=== PATIENT | male | born 1990 | race Caucasian/White ===

== ENCOUNTER → 2018-03-05 16:45 | Inpatient (IN) ==
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
[2017-09-24 09:54] LABS: Baso # (Auto) 0.1 th/mm3 (0.0-0.2); Baso % (Auto) 0.8 % (0.0-2.0); Eos # (Auto) 0.4 th/mm3 (0.0-0.4); Eos % (Auto) 5.4 % (0.0-4.0); Hemoglobin 13.9 gm/dL (13.0-17.0); Lymph # (Auto) 1.4 th/mm3 (1.0-4.8); Lymph % (Auto) 20.1 % (9.0-44.0); Mean Corpuscular HGB Conc 33.9 % (32.0-36.0); Mean Corpuscular Hemoglobin 28.8 pg (27.0-34.0); Mean Platelet Volume 9.6 fL (7.0-11.0); Mono # (Auto) 0.5 th/mm3 (0.0-0.9); Mono % (Auto) 6.9 % (0.0-8.0); Neut # (Auto) 4.6 th/mm3 (1.8-7.7); Neut % (Auto) 66.8 % (16.0-70.0); Platelet Count 232 th/mm3 (150-450); Red Blood Count 4.82 mil/mm3 (4.50-5.90); Red Cell Distribution Width 14.2 % (11.6-17.2)
[2017-09-24] MEDS: Enoxaparin Inj 40 MG/0.4 ML Syringe SQ SCH (10:17)
[2017-09-24] MEDS: Ascorbic Acid 500 MG Tablet NG/OG SCH (10:18)
[2017-09-24] MEDS: Chlorhexidine Gluconate 0.12% Liq 15 ML UDC SWISH-SPIT SCH ×2 (10:18→20:14)
[2017-09-24] MEDS: Multivitamin/Minerals Therapeutic Tablet NG/OG SCH ×2 (10:19→20:14)
[2017-09-24] MEDS: Methocarbamol 500 MG Tablet NG/OG SCH ×3 (10:19→17:50)
[2017-09-24] MEDS: Beneprotein Powder Packet NG/OG SCH ×3 (10:20→21:43)
[2017-09-24 12:29] LABS: Anion Gap 9 meq/L (5-15); Blood Urea Nitrogen 23 mg/dL (7-18); Calcium 8.8 mg/dL (8.5-10.1); Chloride 105 meq/L (98-107); Glomerular Filtration Rate Greater Than 89 mL/min (>89); Glucose,Random 114 mg/dL (74-106); Potassium 3.9 meq/L (3.5-5.1); Sodium 140 meq/L (136-145)
[2017-09-25] MEDS: Chlorhexidine Gluconate 0.12% Liq 15 ML UDC SWISH-SPIT SCH ×2 (08:01→20:44)
[2017-09-25] MEDS: Multivitamin/Minerals Therapeutic Tablet NG/OG SCH ×2 (08:01→20:46)
[2017-09-25] MEDS: Ascorbic Acid 500 MG Tablet NG/OG SCH (08:01)
[2017-09-25] MEDS: Methocarbamol 500 MG Tablet NG/OG SCH ×3 (08:01→17:25)
[2017-09-25] MEDS: Beneprotein Powder Packet NG/OG SCH ×3 (08:02→17:24)
[2017-09-25] MEDS: Enoxaparin Inj 40 MG/0.4 ML Syringe SQ SCH (08:02)
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
[2017-09-26] MEDS: Ascorbic Acid 500 MG Tablet NG/OG SCH (08:21)
[2017-09-26] MEDS: Beneprotein Powder Packet NG/OG SCH ×3 (08:21→17:07)
[2017-09-26] MEDS: Methocarbamol 500 MG Tablet NG/OG SCH ×3 (08:21→17:06)
[2017-09-26] MEDS: Multivitamin/Minerals Therapeutic Tablet NG/OG SCH ×2 (08:21→20:32)
[2017-09-26] MEDS: Enoxaparin Inj 40 MG/0.4 ML Syringe SQ SCH (08:23)
[2017-09-26] MEDS: Chlorhexidine Gluconate 0.12% Liq 15 ML UDC SWISH-SPIT SCH ×2 (08:24→20:33)
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
[2017-09-26] MEDS: Artificial Tears Opth Drops 15 ML Bottle EACH EYE PRN (20:31)
[2017-09-27] MEDS: Enoxaparin Inj 40 MG/0.4 ML Syringe SQ SCH (09:45)
[2017-09-27] MEDS: Ascorbic Acid 500 MG Tablet NG/OG SCH (09:45)
[2017-09-27] MEDS: Methocarbamol 500 MG Tablet NG/OG SCH ×3 (09:45→17:48)
[2017-09-27] MEDS: Multivitamin/Minerals Therapeutic Tablet NG/OG SCH ×2 (09:45→21:20)
[2017-09-27] MEDS: Chlorhexidine Gluconate 0.12% Liq 15 ML UDC SWISH-SPIT SCH ×2 (09:45→21:30)
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
[2017-09-27] MEDS: Beneprotein Powder Packet NG/OG SCH ×3 (13:36→17:48)
[2017-09-28] MEDS: Multivitamin/Minerals Therapeutic Tablet NG/OG SCH ×2 (08:23→20:45)
[2017-09-28] MEDS: Ascorbic Acid 500 MG Tablet NG/OG SCH (08:23)
[2017-09-28] MEDS: Methocarbamol 500 MG Tablet NG/OG SCH ×3 (08:23→18:12)
[2017-09-28] MEDS: Chlorhexidine Gluconate 0.12% Liq 15 ML UDC SWISH-SPIT SCH ×2 (08:23→20:44)
[2017-09-28] MEDS: Enoxaparin Inj 40 MG/0.4 ML Syringe SQ SCH (08:23)
[2017-09-28] MEDS: Beneprotein Powder Packet NG/OG SCH ×3 (08:24→18:12)
--- NOTE | 2017-09-28 13:54 | P.PNPAL ---
Palliative care received a call from patient's step-mother requesting a letter speaking to patient's medical condition. Letter provided and copy placed in chart. Stepmother reports she will be by the hospital Monday. Palliative care will continue to follow throughout hospitalization.
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
[2017-09-28] MEDS: Lactic Acid (Ammonium Lactate) 12% Lotion 225 GM Bottle TOPICAL PRN (20:47)
[2017-09-29] MEDS: Multivitamin/Minerals Therapeutic Tablet NG/OG SCH ×2 (09:57→20:24)
[2017-09-29] MEDS: Ascorbic Acid 500 MG Tablet NG/OG SCH (09:57)
[2017-09-29] MEDS: Chlorhexidine Gluconate 0.12% Liq 15 ML UDC SWISH-SPIT SCH ×2 (09:57→20:23)
[2017-09-29] MEDS: Methocarbamol 500 MG Tablet NG/OG SCH ×3 (09:58→20:25)
[2017-09-29] MEDS: Beneprotein Powder Packet NG/OG SCH ×3 (09:58→20:25)
[2017-09-29] MEDS: Enoxaparin Inj 40 MG/0.4 ML Syringe SQ SCH (09:58)
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
[2017-09-29 20:04] LABS: Baso # (Auto) 0.1 th/mm3 (0.0-0.2); Eos # (Auto) 0.4 th/mm3 (0.0-0.4); Eos % (Auto) 4.9 % (0.0-4.0); Hematocrit 42.9 % (39.0-51.0); Hemoglobin 14.4 gm/dL (13.0-17.0); Lymph # (Auto) 1.9 th/mm3 (1.0-4.8); Lymph % (Auto) 23.9 % (9.0-44.0); Mean Corpuscular HGB Conc 33.4 % (32.0-36.0); Mean Corpuscular Hemoglobin 28.6 pg (27.0-34.0); Mean Corpuscular Volume 85.5 fL (80.0-100.0); Mean Platelet Volume 9.6 fL (7.0-11.0); Mono # (Auto) 0.7 th/mm3 (0.0-0.9); Mono % (Auto) 9.3 % (0.0-8.0); Neut # (Auto) 4.8 th/mm3 (1.8-7.7); Neut % (Auto) 60.9 % (16.0-70.0); Platelet Count 231 th/mm3 (150-450); Red Blood Count 5.02 mil/mm3 (4.50-5.90); Red Cell Distribution Width 14.1 % (11.6-17.2); White Blood Count 7.8 th/mm3 (4.0-11.0)
[2017-09-29 20:20] LABS: Anion Gap 9 meq/L (5-15); Blood Urea Nitrogen 23 mg/dL (7-18); Calcium 9.2 mg/dL (8.5-10.1); Carbon Dioxide 28.3 meq/L (21.0-32.0); Chloride 103 meq/L (98-107); Glomerular Filtration Rate Greater Than 89 mL/min (>89); Glucose,Random 90 mg/dL (74-106); Phosphorus 3.7 mg/dL (2.5-4.9); Potassium 4.2 meq/L (3.5-5.1); Sodium 140 meq/L (136-145)
[2017-09-29] MEDS: Metoprolol Tartrate 25 MG Tablet G-TUBE SCH (20:23)
[2017-09-30] MEDS: Metoprolol Tartrate 25 MG Tablet G-TUBE SCH ×2 (09:00→20:57)
[2017-09-30] MEDS: Beneprotein Powder Packet NG/OG SCH ×3 (09:00→18:00)
[2017-09-30] MEDS: Chlorhexidine Gluconate 0.12% Liq 15 ML UDC SWISH-SPIT SCH ×2 (09:00→20:57)
[2017-09-30] MEDS: Enoxaparin Inj 40 MG/0.4 ML Syringe SQ SCH (09:00)
[2017-09-30] MEDS: Methocarbamol 500 MG Tablet NG/OG SCH ×3 (09:00→18:00)
[2017-09-30] MEDS: Ascorbic Acid 500 MG Tablet NG/OG SCH (09:00)
[2017-09-30] MEDS: Multivitamin/Minerals Therapeutic Tablet NG/OG SCH ×2 (09:00→20:57)
[2017-09-30] MEDS: Lactic Acid (Ammonium Lactate) 12% Lotion 225 GM Bottle TOPICAL PRN (10:19)
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
[2017-10-01] MEDS: Methocarbamol 500 MG Tablet NG/OG SCH ×3 (09:00→18:08)
[2017-10-01] MEDS: Enoxaparin Inj 40 MG/0.4 ML Syringe SQ SCH (09:00)
[2017-10-01] MEDS: Ascorbic Acid 500 MG Tablet NG/OG SCH (09:00)
[2017-10-01] MEDS: Chlorhexidine Gluconate 0.12% Liq 15 ML UDC SWISH-SPIT SCH ×2 (09:00→20:39)
[2017-10-01] MEDS: Metoprolol Tartrate 25 MG Tablet G-TUBE SCH ×2 (09:00→20:39)
[2017-10-01] MEDS: Beneprotein Powder Packet NG/OG SCH ×3 (09:00→18:08)
[2017-10-01] MEDS: Multivitamin/Minerals Therapeutic Tablet NG/OG SCH ×2 (09:00→20:39)
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
[2017-10-02] MEDS: Chlorhexidine Gluconate 0.12% Liq 15 ML UDC SWISH-SPIT SCH ×2 (08:11→22:27)
[2017-10-02] MEDS: Metoprolol Tartrate 25 MG Tablet G-TUBE SCH ×2 (08:11→22:28)
[2017-10-02] MEDS: Beneprotein Powder Packet NG/OG SCH ×3 (08:11→17:44)
[2017-10-02] MEDS: Multivitamin/Minerals Therapeutic Tablet NG/OG SCH ×2 (08:11→22:30)
[2017-10-02] MEDS: Methocarbamol 500 MG Tablet NG/OG SCH ×3 (08:12→17:45)
[2017-10-02] MEDS: Enoxaparin Inj 40 MG/0.4 ML Syringe SQ SCH (08:12)
[2017-10-02] MEDS: Ascorbic Acid 500 MG Tablet NG/OG SCH (08:12)
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
[2017-10-03] MEDS: Beneprotein Powder Packet NG/OG SCH ×3 (09:21→17:05)
[2017-10-03] MEDS: Multivitamin/Minerals Therapeutic Tablet NG/OG SCH ×2 (09:22→21:00)
[2017-10-03] MEDS: Enoxaparin Inj 40 MG/0.4 ML Syringe SQ SCH (09:22)
[2017-10-03] MEDS: Metoprolol Tartrate 25 MG Tablet G-TUBE SCH ×2 (09:22→21:00)
[2017-10-03] MEDS: Chlorhexidine Gluconate 0.12% Liq 15 ML UDC SWISH-SPIT SCH ×2 (09:28→21:00)
[2017-10-03] MEDS: Ascorbic Acid 500 MG Tablet NG/OG SCH (09:28)
[2017-10-03] MEDS: Methocarbamol 500 MG Tablet NG/OG SCH ×3 (09:28→17:05)
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
[2017-10-04] MEDS: Chlorhexidine Gluconate 0.12% Liq 15 ML UDC SWISH-SPIT SCH ×2 (08:55→20:55)
[2017-10-04] MEDS: Metoprolol Tartrate 25 MG Tablet G-TUBE SCH ×2 (08:56→20:24)
[2017-10-04] MEDS: Multivitamin/Minerals Therapeutic Tablet NG/OG SCH ×2 (08:56→20:24)
[2017-10-04] MEDS: Methocarbamol 500 MG Tablet NG/OG SCH ×3 (08:56→17:08)
[2017-10-04] MEDS: Enoxaparin Inj 40 MG/0.4 ML Syringe SQ SCH (08:57)
[2017-10-04] MEDS: Ascorbic Acid 500 MG Tablet NG/OG SCH (08:57)
[2017-10-04] MEDS: Beneprotein Powder Packet NG/OG SCH ×3 (08:57→17:07)
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
[2017-10-05] MEDS: Multivitamin/Minerals Therapeutic Tablet NG/OG SCH ×2 (08:26→21:00)
[2017-10-05] MEDS: Enoxaparin Inj 40 MG/0.4 ML Syringe SQ SCH (08:27)
[2017-10-05] MEDS: Chlorhexidine Gluconate 0.12% Liq 15 ML UDC SWISH-SPIT SCH ×2 (08:27→21:00)
[2017-10-05] MEDS: Ascorbic Acid 500 MG Tablet NG/OG SCH (08:27)
[2017-10-05] MEDS: Metoprolol Tartrate 25 MG Tablet G-TUBE SCH ×2 (08:27→21:00)
[2017-10-05] MEDS: Methocarbamol 500 MG Tablet NG/OG SCH ×3 (08:28→17:42)
[2017-10-05] MEDS: Beneprotein Powder Packet NG/OG SCH ×3 (08:28→17:42)
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
[2017-10-06] MEDS: Ascorbic Acid 500 MG Tablet NG/OG SCH (09:45)
[2017-10-06] MEDS: Multivitamin/Minerals Therapeutic Tablet NG/OG SCH ×2 (09:45→21:26)
[2017-10-06] MEDS: Enoxaparin Inj 40 MG/0.4 ML Syringe SQ SCH (09:46)
[2017-10-06] MEDS: Chlorhexidine Gluconate 0.12% Liq 15 ML UDC SWISH-SPIT SCH ×2 (09:46→21:26)
[2017-10-06] MEDS: Methocarbamol 500 MG Tablet NG/OG SCH ×3 (09:46→17:35)
[2017-10-06] MEDS: Metoprolol Tartrate 25 MG Tablet G-TUBE SCH ×2 (09:46→21:26)
[2017-10-06] MEDS: Beneprotein Powder Packet NG/OG SCH ×3 (09:47→17:35)
[2017-10-07] MEDS: Metoprolol Tartrate 25 MG Tablet G-TUBE SCH ×2 (08:56→21:07)
[2017-10-07] MEDS: Multivitamin/Minerals Therapeutic Tablet NG/OG SCH ×2 (09:01→21:07)
[2017-10-07] MEDS: Chlorhexidine Gluconate 0.12% Liq 15 ML UDC SWISH-SPIT SCH ×2 (09:01→21:07)
[2017-10-07] MEDS: Methocarbamol 500 MG Tablet NG/OG SCH ×3 (09:01→18:32)
[2017-10-07] MEDS: Ascorbic Acid 500 MG Tablet NG/OG SCH (09:01)
[2017-10-07] MEDS: Enoxaparin Inj 40 MG/0.4 ML Syringe SQ SCH (09:02)
[2017-10-07] MEDS: Beneprotein Powder Packet NG/OG SCH ×3 (09:02→18:32)
[2017-10-07] MEDS: Lactic Acid (Ammonium Lactate) 12% Lotion 225 GM Bottle TOPICAL PRN (09:03)
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
[2017-10-07] MEDS: Artificial Tears Opth Drops 15 ML Bottle EACH EYE PRN (12:44)
[2017-10-07 13:09] LABS: Baso % (Auto) 0.6 % (0.0-2.0); Eos # (Auto) 0.3 th/mm3 (0.0-0.4); Hematocrit 45.2 % (39.0-51.0); Hemoglobin 15.1 gm/dL (13.0-17.0); Lymph # (Auto) 1.9 th/mm3 (1.0-4.8); Lymph % (Auto) 27.6 % (9.0-44.0); Mean Corpuscular HGB Conc 33.5 % (32.0-36.0); Mean Corpuscular Hemoglobin 28.9 pg (27.0-34.0); Mean Corpuscular Volume 86.3 fL (80.0-100.0); Mean Platelet Volume 9.1 fL (7.0-11.0); Mono # (Auto) 0.5 th/mm3 (0.0-0.9); Mono % (Auto) 7.8 % (0.0-8.0); Neut # (Auto) 4.2 th/mm3 (1.8-7.7); Platelet Count 238 th/mm3 (150-450); Red Blood Count 5.24 mil/mm3 (4.50-5.90); Red Cell Distribution Width 14.2 % (11.6-17.2)
[2017-10-07 13:26] LABS: Anion Gap 8 meq/L (5-15); Blood Urea Nitrogen 19 mg/dL (7-18); Calcium 9.4 mg/dL (8.5-10.1); Carbon Dioxide 27.5 meq/L (21.0-32.0); Chloride 105 meq/L (98-107); Glomerular Filtration Rate Greater Than 89 mL/min (>89); Glucose,Random 89 mg/dL (74-106); Potassium 4.8 meq/L (3.5-5.1); Sodium 140 meq/L (136-145)
[2017-10-07 17:43] LABS: Amorphous Sediment,Urine Moderate /hpf; Bilirubin,Urine Negative (Negative); Clarity,Urine Cloudy (Clear); Color,Urine Yellow (Yellw/Straw); Glucose,Urine (UA) Negative (Negative); Leukocyte Esterase,Urine Negative (Negative); Nitrite,Urine Negative (Negative); Specific Gravity,Urine 1.012 (1.002-1.035)
[2017-10-08] MEDS: Methocarbamol 500 MG Tablet NG/OG SCH ×3 (09:00→18:07)
[2017-10-08] MEDS: Chlorhexidine Gluconate 0.12% Liq 15 ML UDC SWISH-SPIT SCH ×2 (09:19→20:50)
[2017-10-08] MEDS: Ascorbic Acid 500 MG Tablet NG/OG SCH (09:20)
[2017-10-08] MEDS: Multivitamin/Minerals Therapeutic Tablet NG/OG SCH ×2 (09:20→20:51)
[2017-10-08] MEDS: Beneprotein Powder Packet NG/OG SCH ×3 (09:20→18:07)
[2017-10-08] MEDS: Enoxaparin Inj 40 MG/0.4 ML Syringe SQ SCH (09:21)
[2017-10-08] MEDS: Metoprolol Tartrate 25 MG Tablet G-TUBE SCH ×2 (09:21→20:51)
[2017-10-08] MEDS: Lactic Acid (Ammonium Lactate) 12% Lotion 225 GM Bottle TOPICAL PRN (09:21)
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
[2017-10-09] MEDS: Multivitamin/Minerals Therapeutic Tablet NG/OG SCH ×2 (09:55→21:05)
[2017-10-09] MEDS: Methocarbamol 500 MG Tablet NG/OG SCH ×3 (09:55→21:05)
[2017-10-09] MEDS: Ascorbic Acid 500 MG Tablet NG/OG SCH (09:56)
[2017-10-09] MEDS: Enoxaparin Inj 40 MG/0.4 ML Syringe SQ SCH (09:56)
[2017-10-09] MEDS: Metoprolol Tartrate 25 MG Tablet G-TUBE SCH ×2 (09:56→21:04)
[2017-10-09] MEDS: Beneprotein Powder Packet NG/OG SCH ×3 (14:58→19:07)
[2017-10-09] MEDS: Chlorhexidine Gluconate 0.12% Liq 15 ML UDC SWISH-SPIT SCH ×2 (14:58→21:05)
[2017-10-10] MEDS: Metoprolol Tartrate 25 MG Tablet G-TUBE SCH ×2 (08:06→21:17)
[2017-10-10] MEDS: Methocarbamol 500 MG Tablet NG/OG SCH ×2 (08:06→13:24)
[2017-10-10] MEDS: Ascorbic Acid 500 MG Tablet NG/OG SCH (08:06)
[2017-10-10] MEDS: Multivitamin/Minerals Therapeutic Tablet NG/OG SCH ×2 (08:06→21:17)
[2017-10-10] MEDS: Beneprotein Powder Packet NG/OG SCH ×2 (08:20→13:24)
[2017-10-10] MEDS: Enoxaparin Inj 40 MG/0.4 ML Syringe SQ SCH (08:20)
[2017-10-10] MEDS: Chlorhexidine Gluconate 0.12% Liq 15 ML UDC SWISH-SPIT SCH ×2 (08:21→21:17)
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
[2017-10-11] MEDS: Enoxaparin Inj 40 MG/0.4 ML Syringe SQ SCH (09:04)
[2017-10-11] MEDS: Ascorbic Acid 500 MG Tablet NG/OG SCH (09:04)
[2017-10-11] MEDS: Multivitamin/Minerals Therapeutic Tablet NG/OG SCH ×2 (09:04→23:03)
[2017-10-11] MEDS: Methocarbamol 500 MG Tablet NG/OG SCH ×4 (09:04→17:17)
[2017-10-11] MEDS: Chlorhexidine Gluconate 0.12% Liq 15 ML UDC SWISH-SPIT SCH ×2 (09:05→23:04)
[2017-10-11] MEDS: Beneprotein Powder Packet NG/OG SCH ×4 (09:05→17:17)
[2017-10-11] MEDS: Metoprolol Tartrate 25 MG Tablet G-TUBE SCH ×2 (09:07→20:35)
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
[2017-10-11] MEDS: BACITRACIN RIGHT EYE SCH (23:58)
[2017-10-11] MEDS: [UNRECOGNIZED DRUG - OTHER] RIGHT EYE SCH (23:58)
[2017-10-12] MEDS: [UNRECOGNIZED DRUG - OTHER] RIGHT EYE SCH ×5 (04:04→20:49)
[2017-10-12] MEDS: BACITRACIN RIGHT EYE SCH ×5 (04:04→20:49)
[2017-10-12] MEDS: Chlorhexidine Gluconate 0.12% Liq 15 ML UDC SWISH-SPIT SCH ×2 (08:46→20:52)
[2017-10-12] MEDS: Enoxaparin Inj 40 MG/0.4 ML Syringe SQ SCH (08:46)
[2017-10-12] MEDS: Multivitamin/Minerals Therapeutic Tablet NG/OG SCH ×2 (08:46→20:53)
[2017-10-12] MEDS: Ascorbic Acid 500 MG Tablet NG/OG SCH (08:47)
[2017-10-12] MEDS: Metoprolol Tartrate 25 MG Tablet G-TUBE SCH ×2 (08:47→20:52)
[2017-10-12] MEDS: Beneprotein Powder Packet NG/OG SCH ×3 (08:47→18:00)
[2017-10-12] MEDS: Methocarbamol 500 MG Tablet NG/OG SCH ×2 (08:48→14:19)
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
[2017-10-13] MEDS: [UNRECOGNIZED DRUG - OTHER] RIGHT EYE SCH ×6 (00:37→20:59)
[2017-10-13] MEDS: BACITRACIN RIGHT EYE SCH ×6 (00:37→20:59)
[2017-10-13] MEDS: Chlorhexidine Gluconate 0.12% Liq 15 ML UDC SWISH-SPIT SCH ×2 (09:36→20:59)
[2017-10-13] MEDS: Ascorbic Acid 500 MG Tablet NG/OG SCH (09:36)
[2017-10-13] MEDS: Beneprotein Powder Packet NG/OG SCH ×3 (09:36→17:31)
[2017-10-13] MEDS: Enoxaparin Inj 40 MG/0.4 ML Syringe SQ SCH (09:36)
[2017-10-13] MEDS: Multivitamin/Minerals Therapeutic Tablet NG/OG SCH ×2 (09:36→20:58)
[2017-10-13] MEDS: Metoprolol Tartrate 25 MG Tablet G-TUBE SCH ×2 (09:36→20:58)
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
[2017-10-14] MEDS: BACITRACIN RIGHT EYE SCH ×7 (01:12→23:59)
[2017-10-14] MEDS: [UNRECOGNIZED DRUG - OTHER] RIGHT EYE SCH ×7 (01:12→23:59)
[2017-10-14] MEDS: Multivitamin/Minerals Therapeutic Tablet NG/OG SCH ×2 (09:32→21:09)
[2017-10-14] MEDS: Beneprotein Powder Packet NG/OG SCH ×3 (09:32→18:33)
[2017-10-14] MEDS: Ascorbic Acid 500 MG Tablet NG/OG SCH (09:32)
[2017-10-14] MEDS: Enoxaparin Inj 40 MG/0.4 ML Syringe SQ SCH (09:33)
[2017-10-14] MEDS: Chlorhexidine Gluconate 0.12% Liq 15 ML UDC SWISH-SPIT SCH ×2 (09:33→21:09)
[2017-10-14] MEDS: Metoprolol Tartrate 25 MG Tablet G-TUBE SCH ×2 (09:33→21:09)
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
[2017-10-15] MEDS: [UNRECOGNIZED DRUG - OTHER] RIGHT EYE SCH ×5 (05:11→19:28)
[2017-10-15] MEDS: BACITRACIN RIGHT EYE SCH ×5 (05:11→19:28)
[2017-10-15] MEDS: Ascorbic Acid 500 MG Tablet NG/OG SCH (08:59)
[2017-10-15] MEDS: Enoxaparin Inj 40 MG/0.4 ML Syringe SQ SCH (08:59)
[2017-10-15] MEDS: Multivitamin/Minerals Therapeutic Tablet NG/OG SCH ×2 (08:59→20:13)
[2017-10-15] MEDS: Chlorhexidine Gluconate 0.12% Liq 15 ML UDC SWISH-SPIT SCH ×2 (08:59→20:12)
[2017-10-15] MEDS: Metoprolol Tartrate 25 MG Tablet G-TUBE SCH ×2 (08:59→20:12)
[2017-10-15] MEDS: Beneprotein Powder Packet NG/OG SCH ×3 (09:00→18:00)
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
[2017-10-16] MEDS: BACITRACIN RIGHT EYE SCH ×6 (00:35→20:06)
[2017-10-16] MEDS: [UNRECOGNIZED DRUG - OTHER] RIGHT EYE SCH ×6 (00:35→20:06)
[2017-10-16] MEDS: Enoxaparin Inj 40 MG/0.4 ML Syringe SQ SCH (08:29)
[2017-10-16] MEDS: Chlorhexidine Gluconate 0.12% Liq 15 ML UDC SWISH-SPIT SCH ×2 (08:30→20:06)
[2017-10-16] MEDS: Multivitamin/Minerals Therapeutic Tablet NG/OG SCH ×2 (08:30→20:10)
[2017-10-16] MEDS: Metoprolol Tartrate 25 MG Tablet G-TUBE SCH ×2 (08:30→20:11)
[2017-10-16] MEDS: Ascorbic Acid 500 MG Tablet NG/OG SCH (08:30)
[2017-10-16] MEDS: Beneprotein Powder Packet NG/OG SCH ×3 (08:31→17:24)
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
[2017-10-17] MEDS: [UNRECOGNIZED DRUG - OTHER] RIGHT EYE SCH ×7 (00:05→23:50)
[2017-10-17] MEDS: BACITRACIN RIGHT EYE SCH ×7 (00:05→23:50)
[2017-10-17] MEDS: Ascorbic Acid 500 MG Tablet NG/OG SCH (08:42)
[2017-10-17] MEDS: Enoxaparin Inj 40 MG/0.4 ML Syringe SQ SCH (08:42)
[2017-10-17] MEDS: Metoprolol Tartrate 25 MG Tablet G-TUBE SCH ×3 (08:43→20:13)
[2017-10-17] MEDS: Multivitamin/Minerals Therapeutic Tablet NG/OG SCH ×2 (08:43→20:04)
[2017-10-17] MEDS: Chlorhexidine Gluconate 0.12% Liq 15 ML UDC SWISH-SPIT SCH ×2 (08:43→20:12)
[2017-10-17] MEDS: Beneprotein Powder Packet NG/OG SCH ×3 (08:43→17:38)
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
[2017-10-18] MEDS: [UNRECOGNIZED DRUG - OTHER] RIGHT EYE SCH ×6 (05:10→23:47)
[2017-10-18] MEDS: BACITRACIN RIGHT EYE SCH ×6 (05:10→23:47)
[2017-10-18] MEDS: Ascorbic Acid 500 MG Tablet NG/OG SCH (08:07)
[2017-10-18] MEDS: Metoprolol Tartrate 25 MG Tablet G-TUBE SCH ×2 (08:08→20:17)
[2017-10-18] MEDS: Enoxaparin Inj 40 MG/0.4 ML Syringe SQ SCH (08:08)
[2017-10-18] MEDS: Chlorhexidine Gluconate 0.12% Liq 15 ML UDC SWISH-SPIT SCH ×2 (09:00→20:19)
[2017-10-18] MEDS: Multivitamin/Minerals Therapeutic Tablet NG/OG SCH ×2 (09:00→20:17)
[2017-10-18] MEDS: Beneprotein Powder Packet NG/OG SCH ×3 (09:00→18:00)
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
[2017-10-19] MEDS: Ascorbic Acid 500 MG Tablet NG/OG SCH (08:19)
[2017-10-19] MEDS: Metoprolol Tartrate 25 MG Tablet G-TUBE SCH ×2 (08:19→20:10)
[2017-10-19] MEDS: Enoxaparin Inj 40 MG/0.4 ML Syringe SQ SCH (08:19)
[2017-10-19] MEDS: Chlorhexidine Gluconate 0.12% Liq 15 ML UDC SWISH-SPIT SCH ×2 (08:21→20:13)
[2017-10-19] MEDS: Multivitamin/Minerals Therapeutic Tablet NG/OG SCH ×2 (08:21→20:10)
[2017-10-19] MEDS: Beneprotein Powder Packet NG/OG SCH ×3 (08:21→17:32)
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
[2017-10-19] MEDS: diazePAM 2 MG Tablet NG/OG PRN (20:09)
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
[2017-10-20] MEDS: Ascorbic Acid 500 MG Tablet NG/OG SCH (09:00)
[2017-10-20] MEDS: Enoxaparin Inj 40 MG/0.4 ML Syringe SQ SCH (09:00)
[2017-10-20] MEDS: Beneprotein Powder Packet NG/OG SCH ×3 (09:00→18:14)
[2017-10-20] MEDS: Multivitamin/Minerals Therapeutic Tablet NG/OG SCH ×2 (09:00→23:04)
[2017-10-20] MEDS: Metoprolol Tartrate 25 MG Tablet G-TUBE SCH ×2 (09:31→21:25)
[2017-10-20] MEDS: Chlorhexidine Gluconate 0.12% Liq 15 ML UDC SWISH-SPIT SCH ×2 (09:31→21:24)
[2017-10-20] MEDS: diazePAM 2 MG Tablet NG/OG PRN (21:25)
[2017-10-21] MEDS: Multivitamin/Minerals Therapeutic Tablet NG/OG SCH ×2 (08:47→22:43)
[2017-10-21] MEDS: Metoprolol Tartrate 25 MG Tablet G-TUBE SCH ×2 (08:47→22:43)
[2017-10-21] MEDS: Chlorhexidine Gluconate 0.12% Liq 15 ML UDC SWISH-SPIT SCH ×2 (08:48→22:43)
[2017-10-21] MEDS: Ascorbic Acid 500 MG Tablet NG/OG SCH (08:48)
[2017-10-21] MEDS: Beneprotein Powder Packet NG/OG SCH ×3 (08:48→17:55)
[2017-10-21] MEDS: Enoxaparin Inj 40 MG/0.4 ML Syringe SQ SCH (08:49)
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
[2017-10-22] MEDS: Senna/Docusate Sodium 8.6/50 MG Tablet NG/OG PRN (06:28)
[2017-10-22] MEDS: Multivitamin/Minerals Therapeutic Tablet NG/OG SCH ×2 (08:42→21:54)
[2017-10-22] MEDS: Enoxaparin Inj 40 MG/0.4 ML Syringe SQ SCH (08:43)
[2017-10-22] MEDS: Ascorbic Acid 500 MG Tablet NG/OG SCH (08:43)
[2017-10-22] MEDS: Metoprolol Tartrate 25 MG Tablet G-TUBE SCH ×2 (08:43→21:53)
[2017-10-22] MEDS: Chlorhexidine Gluconate 0.12% Liq 15 ML UDC SWISH-SPIT SCH ×2 (08:43→21:55)
[2017-10-22] MEDS: Beneprotein Powder Packet NG/OG SCH ×3 (08:44→17:29)
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
[2017-10-23] MEDS: Ascorbic Acid 500 MG Tablet NG/OG SCH (09:54)
[2017-10-23] MEDS: Chlorhexidine Gluconate 0.12% Liq 15 ML UDC SWISH-SPIT SCH ×2 (09:55→21:51)
[2017-10-23] MEDS: Enoxaparin Inj 40 MG/0.4 ML Syringe SQ SCH (09:55)
[2017-10-23] MEDS: Multivitamin/Minerals Therapeutic Tablet NG/OG SCH ×2 (09:55→21:51)
[2017-10-23] MEDS: Metoprolol Tartrate 25 MG Tablet G-TUBE SCH ×2 (09:55→21:51)
[2017-10-23] MEDS: Beneprotein Powder Packet NG/OG SCH ×3 (09:56→17:50)
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
[2017-10-24] MEDS: Multivitamin/Minerals Therapeutic Tablet NG/OG SCH ×2 (09:38→21:06)
[2017-10-24] MEDS: Ascorbic Acid 500 MG Tablet NG/OG SCH (09:38)
[2017-10-24] MEDS: Chlorhexidine Gluconate 0.12% Liq 15 ML UDC SWISH-SPIT SCH ×2 (09:38→21:05)
[2017-10-24] MEDS: Metoprolol Tartrate 25 MG Tablet G-TUBE SCH ×2 (09:38→21:06)
[2017-10-24] MEDS: Enoxaparin Inj 40 MG/0.4 ML Syringe SQ SCH (09:39)
[2017-10-24] MEDS: Beneprotein Powder Packet NG/OG SCH ×3 (09:39→17:37)
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
[2017-10-25] MEDS: Enoxaparin Inj 40 MG/0.4 ML Syringe SQ SCH (08:26)
[2017-10-25] MEDS: Metoprolol Tartrate 25 MG Tablet G-TUBE SCH ×2 (08:26→21:12)
[2017-10-25] MEDS: Chlorhexidine Gluconate 0.12% Liq 15 ML UDC SWISH-SPIT SCH ×2 (08:26→21:11)
[2017-10-25] MEDS: Multivitamin/Minerals Therapeutic Tablet NG/OG SCH ×2 (08:27→21:12)
[2017-10-25] MEDS: Ascorbic Acid 500 MG Tablet NG/OG SCH (08:27)
[2017-10-25] MEDS: Beneprotein Powder Packet NG/OG SCH ×3 (08:27→17:33)
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
[2017-10-26] MEDS: Beneprotein Powder Packet NG/OG SCH ×3 (08:57→18:00)
[2017-10-26] MEDS: Metoprolol Tartrate 25 MG Tablet G-TUBE SCH ×2 (08:58→20:53)
[2017-10-26] MEDS: Multivitamin/Minerals Therapeutic Tablet NG/OG SCH ×2 (08:58→20:53)
[2017-10-26] MEDS: Enoxaparin Inj 40 MG/0.4 ML Syringe SQ SCH (08:58)
[2017-10-26] MEDS: Chlorhexidine Gluconate 0.12% Liq 15 ML UDC SWISH-SPIT SCH ×2 (08:58→20:53)
[2017-10-26] MEDS: Ascorbic Acid 500 MG Tablet NG/OG SCH (08:58)
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
[2017-10-26] MEDS: Senna/Docusate Sodium 8.6/50 MG Tablet NG/OG PRN (21:05)
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
[2017-10-27] MEDS: Beneprotein Powder Packet NG/OG SCH ×3 (09:00→17:49)
[2017-10-27] MEDS: Ascorbic Acid 500 MG Tablet NG/OG SCH (09:34)
[2017-10-27] MEDS: Chlorhexidine Gluconate 0.12% Liq 15 ML UDC SWISH-SPIT SCH ×2 (09:35→20:36)
[2017-10-27] MEDS: Enoxaparin Inj 40 MG/0.4 ML Syringe SQ SCH (09:35)
[2017-10-27] MEDS: Multivitamin/Minerals Therapeutic Tablet NG/OG SCH ×2 (09:35→20:35)
[2017-10-27] MEDS: Metoprolol Tartrate 25 MG Tablet G-TUBE SCH ×2 (09:35→20:36)
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
[2017-10-28] MEDS: Ascorbic Acid 500 MG Tablet NG/OG SCH (09:00)
[2017-10-28] MEDS: Enoxaparin Inj 40 MG/0.4 ML Syringe SQ SCH (10:24)
[2017-10-28] MEDS: Chlorhexidine Gluconate 0.12% Liq 15 ML UDC SWISH-SPIT SCH ×2 (10:25→21:15)
[2017-10-28] MEDS: Metoprolol Tartrate 25 MG Tablet G-TUBE SCH ×2 (10:26→21:11)
[2017-10-28] MEDS: Multivitamin/Minerals Therapeutic Tablet NG/OG SCH ×2 (10:27→21:11)
[2017-10-28] MEDS: Beneprotein Powder Packet NG/OG SCH ×3 (10:27→18:00)
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
[2017-10-29] MEDS: Enoxaparin Inj 40 MG/0.4 ML Syringe SQ SCH (08:41)
[2017-10-29] MEDS: Metoprolol Tartrate 25 MG Tablet G-TUBE SCH ×2 (08:41→22:23)
[2017-10-29] MEDS: Beneprotein Powder Packet NG/OG SCH ×3 (08:41→18:14)
[2017-10-29] MEDS: Chlorhexidine Gluconate 0.12% Liq 15 ML UDC SWISH-SPIT SCH ×2 (08:51→22:25)
[2017-10-29] MEDS: Ascorbic Acid 500 MG Tablet NG/OG SCH (08:51)
[2017-10-29] MEDS: Multivitamin/Minerals Therapeutic Tablet NG/OG SCH ×2 (08:51→22:24)
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
[2017-10-30] MEDS: Enoxaparin Inj 40 MG/0.4 ML Syringe SQ SCH (09:57)
[2017-10-30] MEDS: Metoprolol Tartrate 25 MG Tablet G-TUBE SCH ×2 (09:59→21:49)
[2017-10-30] MEDS: Beneprotein Powder Packet NG/OG SCH ×3 (09:59→18:05)
[2017-10-30] MEDS: Ascorbic Acid 500 MG Tablet NG/OG SCH (09:59)
[2017-10-30] MEDS: Multivitamin/Minerals Therapeutic Tablet NG/OG SCH ×2 (09:59→21:50)
[2017-10-30] MEDS: Chlorhexidine Gluconate 0.12% Liq 15 ML UDC SWISH-SPIT SCH ×2 (10:00→21:50)
--- NOTE | 2017-10-30 13:55 | P.PNPAL ---
Palliative care received voicemail from patient's step-mother, Ruth [phone] regarding concerns she has. Attempted to call back, no answer, left message. Awaiting return call.
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
[2017-10-31] MEDS: Metoprolol Tartrate 25 MG Tablet G-TUBE SCH ×2 (09:13→21:00)
[2017-10-31] MEDS: Ascorbic Acid 500 MG Tablet NG/OG SCH (09:14)
[2017-10-31] MEDS: Enoxaparin Inj 40 MG/0.4 ML Syringe SQ SCH (09:14)
[2017-10-31] MEDS: Multivitamin/Minerals Therapeutic Tablet NG/OG SCH ×2 (09:14→21:00)
[2017-10-31] MEDS: Chlorhexidine Gluconate 0.12% Liq 15 ML UDC SWISH-SPIT SCH ×2 (09:14→21:00)
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
--- NOTE | 2017-10-31 11:19 | P.PNPAL ---
Palliative care received call back from farnaz Miranda. She expressed concerns regarding patient's presentation and bedding when they came into the hospital yesterday. Offered emotional support through active listening. Provided her with information to speak with charge nurse and/or nurse business affairs manager. Palliative care spoke with nurses on patient's floor, charge nurse and nurse business affairs manager to also relay family concerns. Palliative care will continue to follow throughout hospitalization.
[2017-10-31] MEDS: Beneprotein Powder Packet NG/OG SCH ×2 (15:03→18:29)
[2017-11-01] MEDS: Chlorhexidine Gluconate 0.12% Liq 15 ML UDC SWISH-SPIT SCH ×2 (09:51→23:18)
[2017-11-01] MEDS: Enoxaparin Inj 40 MG/0.4 ML Syringe SQ SCH (09:51)
[2017-11-01] MEDS: Metoprolol Tartrate 25 MG Tablet G-TUBE SCH ×2 (09:51→22:00)
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
[2017-11-01] MEDS: Beneprotein Powder Packet NG/OG SCH (18:00)
[2017-11-01] MEDS: Multivitamin/Minerals Therapeutic Tablet NG/OG SCH (22:00)
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
[2017-11-02] MEDS: Chlorhexidine Gluconate 0.12% Liq 15 ML UDC SWISH-SPIT SCH (20:30)
[2017-11-02] MEDS: Multivitamin/Minerals Therapeutic Tablet NG/OG SCH (20:31)
[2017-11-02] MEDS: Metoprolol Tartrate 25 MG Tablet G-TUBE SCH (20:31)
[2017-11-03] MEDS: Enoxaparin Inj 40 MG/0.4 ML Syringe SQ SCH ×2 (09:19→09:21)
[2017-11-03] MEDS: Chlorhexidine Gluconate 0.12% Liq 15 ML UDC SWISH-SPIT SCH ×3 (09:19→21:32)
[2017-11-03] MEDS: Multivitamin/Minerals Therapeutic Tablet NG/OG SCH ×4 (09:19→22:47)
[2017-11-03] MEDS: Metoprolol Tartrate 25 MG Tablet G-TUBE SCH ×3 (09:19→21:32)
[2017-11-03] MEDS: Ascorbic Acid 500 MG Tablet NG/OG SCH ×3 (09:19→22:47)
[2017-11-03] MEDS: Beneprotein Powder Packet NG/OG SCH ×6 (09:19→22:46)
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
[2017-11-04] MEDS: Metoprolol Tartrate 25 MG Tablet G-TUBE SCH ×2 (08:46→22:51)
[2017-11-04] MEDS: Ascorbic Acid 500 MG Tablet NG/OG SCH (08:46)
[2017-11-04] MEDS: Chlorhexidine Gluconate 0.12% Liq 15 ML UDC SWISH-SPIT SCH ×2 (08:46→22:50)
[2017-11-04] MEDS: Multivitamin/Minerals Therapeutic Tablet NG/OG SCH ×2 (08:47→22:50)
[2017-11-04] MEDS: Enoxaparin Inj 40 MG/0.4 ML Syringe SQ SCH (08:47)
[2017-11-04] MEDS: Beneprotein Powder Packet NG/OG SCH ×3 (09:00→18:00)
[2017-11-05] MEDS: Chlorhexidine Gluconate 0.12% Liq 15 ML UDC SWISH-SPIT SCH ×2 (09:00→22:23)
[2017-11-05] MEDS: Enoxaparin Inj 40 MG/0.4 ML Syringe SQ SCH (09:00)
[2017-11-05] MEDS: Beneprotein Powder Packet NG/OG SCH ×3 (09:00→18:00)
[2017-11-05] MEDS: Ascorbic Acid 500 MG Tablet NG/OG SCH (10:07)
[2017-11-05] MEDS: Metoprolol Tartrate 25 MG Tablet G-TUBE SCH ×2 (10:07→21:12)
[2017-11-05] MEDS: Multivitamin/Minerals Therapeutic Tablet NG/OG SCH ×2 (10:08→22:23)
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
[2017-11-06] MEDS: Metoprolol Tartrate 25 MG Tablet G-TUBE SCH ×2 (09:24→20:58)
[2017-11-06] MEDS: Chlorhexidine Gluconate 0.12% Liq 15 ML UDC SWISH-SPIT SCH ×2 (09:24→20:58)
[2017-11-06] MEDS: Enoxaparin Inj 40 MG/0.4 ML Syringe SQ SCH (09:24)
[2017-11-06] MEDS: Multivitamin/Minerals Therapeutic Tablet NG/OG SCH ×2 (09:24→20:57)
[2017-11-06] MEDS: Ascorbic Acid 500 MG Tablet NG/OG SCH (09:24)
[2017-11-06] MEDS: Beneprotein Powder Packet NG/OG SCH ×2 (09:24→17:07)
[2017-11-07] MEDS: Enoxaparin Inj 40 MG/0.4 ML Syringe SQ SCH (09:40)
[2017-11-07] MEDS: Metoprolol Tartrate 25 MG Tablet G-TUBE SCH ×2 (09:40→21:00)
[2017-11-07] MEDS: Ascorbic Acid 500 MG Tablet NG/OG SCH (09:40)
[2017-11-07] MEDS: Beneprotein Powder Packet NG/OG SCH ×2 (09:42→16:13)
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
[2017-11-07] MEDS: Multivitamin/Minerals Therapeutic Tablet NG/OG SCH ×2 (12:50→21:00)
[2017-11-07] MEDS: Chlorhexidine Gluconate 0.12% Liq 15 ML UDC SWISH-SPIT SCH ×2 (12:50→21:00)
[2017-11-08] MEDS: Metoprolol Tartrate 25 MG Tablet G-TUBE SCH ×2 (08:41→21:00)
[2017-11-08] MEDS: Ascorbic Acid 500 MG Tablet NG/OG SCH (08:41)
[2017-11-08] MEDS: Enoxaparin Inj 40 MG/0.4 ML Syringe SQ SCH (08:42)
[2017-11-08] MEDS: Multivitamin/Minerals Therapeutic Tablet NG/OG SCH ×2 (08:42→21:00)
[2017-11-08] MEDS: Chlorhexidine Gluconate 0.12% Liq 15 ML UDC SWISH-SPIT SCH ×2 (08:42→21:00)
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
[2017-11-08] MEDS: Beneprotein Powder Packet NG/OG SCH ×6 (13:00→18:42)
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
[2017-11-09] MEDS: Enoxaparin Inj 40 MG/0.4 ML Syringe SQ SCH (09:10)
[2017-11-09] MEDS: Chlorhexidine Gluconate 0.12% Liq 15 ML UDC SWISH-SPIT SCH ×2 (09:10→20:53)
[2017-11-09] MEDS: Beneprotein Powder Packet NG/OG SCH ×3 (09:11→18:18)
[2017-11-09] MEDS: Ascorbic Acid 500 MG Tablet NG/OG SCH (09:11)
[2017-11-09] MEDS: Metoprolol Tartrate 25 MG Tablet G-TUBE SCH ×2 (09:11→20:52)
[2017-11-09] MEDS: Multivitamin/Minerals Therapeutic Tablet NG/OG SCH ×2 (09:11→20:54)
[2017-11-09] MEDS: diazePAM 2 MG Tablet NG/OG PRN (20:52)
[2017-11-10] MEDS: Metoprolol Tartrate 25 MG Tablet G-TUBE SCH ×2 (09:47→20:28)
[2017-11-10] MEDS: Chlorhexidine Gluconate 0.12% Liq 15 ML UDC SWISH-SPIT SCH ×2 (09:47→20:28)
[2017-11-10] MEDS: Ascorbic Acid 500 MG Tablet NG/OG SCH (09:47)
[2017-11-10] MEDS: Enoxaparin Inj 40 MG/0.4 ML Syringe SQ SCH (09:48)
[2017-11-10] MEDS: Beneprotein Powder Packet NG/OG SCH ×3 (09:48→18:00)
[2017-11-10] MEDS: Multivitamin/Minerals Therapeutic Tablet NG/OG SCH ×2 (09:48→20:27)
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
[2017-11-10] MEDS: diazePAM 2 MG Tablet NG/OG PRN (20:28)
[2017-11-11] MEDS: Beneprotein Powder Packet NG/OG SCH ×3 (08:58→17:54)
[2017-11-11] MEDS: Ascorbic Acid 500 MG Tablet NG/OG SCH (08:58)
[2017-11-11] MEDS: Metoprolol Tartrate 25 MG Tablet G-TUBE SCH ×2 (08:58→20:58)
[2017-11-11] MEDS: Multivitamin/Minerals Therapeutic Tablet NG/OG SCH ×2 (08:58→20:58)
[2017-11-11] MEDS: Enoxaparin Inj 40 MG/0.4 ML Syringe SQ SCH (08:58)
[2017-11-11] MEDS: Chlorhexidine Gluconate 0.12% Liq 15 ML UDC SWISH-SPIT SCH ×2 (08:58→20:57)
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
[2017-11-11] MEDS: diazePAM 2 MG Tablet NG/OG PRN (20:58)
[2017-11-12] MEDS: Chlorhexidine Gluconate 0.12% Liq 15 ML UDC SWISH-SPIT SCH ×2 (09:12→20:37)
[2017-11-12] MEDS: Metoprolol Tartrate 25 MG Tablet G-TUBE SCH ×2 (09:13→20:36)
[2017-11-12] MEDS: Ascorbic Acid 500 MG Tablet NG/OG SCH (09:13)
[2017-11-12] MEDS: Beneprotein Powder Packet NG/OG SCH ×2 (09:13→16:50)
[2017-11-12] MEDS: Enoxaparin Inj 40 MG/0.4 ML Syringe SQ SCH (09:13)
[2017-11-12] MEDS: Multivitamin/Minerals Therapeutic Tablet NG/OG SCH ×2 (09:14→20:36)
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
[2017-11-13] MEDS: Beneprotein Powder Packet NG/OG SCH ×4 (09:00→18:00)
[2017-11-13] MEDS: Enoxaparin Inj 40 MG/0.4 ML Syringe SQ SCH (10:08)
[2017-11-13] MEDS: Metoprolol Tartrate 25 MG Tablet G-TUBE SCH ×2 (10:08→21:00)
[2017-11-13] MEDS: Chlorhexidine Gluconate 0.12% Liq 15 ML UDC SWISH-SPIT SCH ×2 (10:08→21:00)
[2017-11-13] MEDS: Multivitamin/Minerals Therapeutic Tablet NG/OG SCH ×2 (10:09→21:00)
[2017-11-13] MEDS: Ascorbic Acid 500 MG Tablet NG/OG SCH (10:09)
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
[2017-11-14] MEDS: Multivitamin/Minerals Therapeutic Tablet NG/OG SCH ×2 (10:12→21:00)
[2017-11-14] MEDS: Beneprotein Powder Packet NG/OG SCH ×3 (10:12→17:16)
[2017-11-14] MEDS: Enoxaparin Inj 40 MG/0.4 ML Syringe SQ SCH (10:12)
[2017-11-14] MEDS: Ascorbic Acid 500 MG Tablet NG/OG SCH (10:13)
[2017-11-14] MEDS: Metoprolol Tartrate 25 MG Tablet G-TUBE SCH ×2 (10:13→21:35)
[2017-11-14] MEDS: Chlorhexidine Gluconate 0.12% Liq 15 ML UDC SWISH-SPIT SCH ×2 (10:14→21:00)
[2017-11-14] MEDS: Gentamicin 0.3% Opth Drops 5 ML Bottle LEFT EYE SCH ×3 (12:53→20:00)
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
[2017-11-15] MEDS: Gentamicin 0.3% Opth Drops 5 ML Bottle LEFT EYE SCH ×5 (04:00→20:50)
[2017-11-15] MEDS: Enoxaparin Inj 40 MG/0.4 ML Syringe SQ SCH (08:43)
[2017-11-15] MEDS: Metoprolol Tartrate 25 MG Tablet G-TUBE SCH ×2 (08:44→20:49)
[2017-11-15] MEDS: Beneprotein Powder Packet NG/OG SCH ×3 (08:45→18:19)
[2017-11-15] MEDS: Ascorbic Acid 500 MG Tablet NG/OG SCH (08:45)
[2017-11-15] MEDS: Multivitamin/Minerals Therapeutic Tablet NG/OG SCH ×2 (08:45→20:49)
[2017-11-15] MEDS: Chlorhexidine Gluconate 0.12% Liq 15 ML UDC SWISH-SPIT SCH ×2 (08:45→20:49)
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
[2017-11-16] MEDS: Gentamicin 0.3% Opth Drops 5 ML Bottle LEFT EYE SCH ×6 (00:48→21:22)
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
[2017-11-16] MEDS: Beneprotein Powder Packet NG/OG SCH ×3 (09:22→19:19)
[2017-11-16] MEDS: Enoxaparin Inj 40 MG/0.4 ML Syringe SQ SCH (09:22)
[2017-11-16] MEDS: Metoprolol Tartrate 25 MG Tablet G-TUBE SCH ×2 (09:22→21:24)
[2017-11-16] MEDS: Chlorhexidine Gluconate 0.12% Liq 15 ML UDC SWISH-SPIT SCH ×2 (09:23→21:23)
[2017-11-16] MEDS: Ascorbic Acid 500 MG Tablet NG/OG SCH (09:23)
[2017-11-16] MEDS: Multivitamin/Minerals Therapeutic Tablet NG/OG SCH ×2 (09:23→21:23)
[2017-11-17] MEDS: Gentamicin 0.3% Opth Drops 5 ML Bottle LEFT EYE SCH ×7 (00:40→23:49)
[2017-11-17] MEDS: Chlorhexidine Gluconate 0.12% Liq 15 ML UDC SWISH-SPIT SCH ×2 (08:50→20:25)
[2017-11-17] MEDS: Ascorbic Acid 500 MG Tablet NG/OG SCH (08:50)
[2017-11-17] MEDS: Multivitamin/Minerals Therapeutic Tablet NG/OG SCH ×2 (08:50→20:19)
[2017-11-17] MEDS: Metoprolol Tartrate 25 MG Tablet G-TUBE SCH ×2 (08:50→20:19)
[2017-11-17] MEDS: Enoxaparin Inj 40 MG/0.4 ML Syringe SQ SCH (08:51)
[2017-11-17] MEDS: Beneprotein Powder Packet NG/OG SCH ×3 (08:51→18:00)
[2017-11-17 09:14] LABS: Baso % (Auto) 0.5 % (0.0-2.0); Eos # (Auto) 0.4 th/mm3 (0.0-0.4); Eos % (Auto) 5.7 % (0.0-4.0); Lymph # (Auto) 1.3 th/mm3 (1.0-4.8); Lymph % (Auto) 20.8 % (9.0-44.0); Mean Corpuscular HGB Conc 33.4 % (32.0-36.0); Mean Corpuscular Hemoglobin 29.3 pg (27.0-34.0); Mean Corpuscular Volume 87.7 fL (80.0-100.0); Mean Platelet Volume 9.8 fL (7.0-11.0); Mono # (Auto) 0.5 th/mm3 (0.0-0.9); Mono % (Auto) 7.3 % (0.0-8.0); Neut # (Auto) 4.2 th/mm3 (1.8-7.7); Neut % (Auto) 65.7 % (16.0-70.0); Platelet Count 204 th/mm3 (150-450); Red Blood Count 4.79 mil/mm3 (4.50-5.90); Red Cell Distribution Width 13.4 % (11.6-17.2); White Blood Count 6.4 th/mm3 (4.0-11.0)
[2017-11-17 09:26] LABS: Alanine Aminotransferase 34 U/L (12-78); Albumin 3.4 g/dL (3.4-5.0); Anion Gap 9 meq/L (5-15); Aspartate Aminotransferase 16 U/L (15-37); Blood Urea Nitrogen 25 mg/dL (7-18); Calcium 8.8 mg/dL (8.5-10.1); Carbon Dioxide 26.2 meq/L (21.0-32.0); Chloride 107 meq/L (98-107); Glomerular Filtration Rate Greater Than 89 mL/min (>89); Glucose,Random 96 mg/dL (74-106); Potassium 4.1 meq/L (3.5-5.1); Sodium 142 meq/L (136-145)
[2017-11-17 09:29] LABS: Alkaline Phosphatase 104 U/L (45-117); Total Protein 7.5 g/dL (6.4-8.2)
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
[2017-11-18] MEDS: Gentamicin 0.3% Opth Drops 5 ML Bottle LEFT EYE SCH ×6 (05:08→23:21)
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
[2017-11-18] MEDS: Metoprolol Tartrate 25 MG Tablet G-TUBE SCH ×2 (09:51→21:31)
[2017-11-18] MEDS: Chlorhexidine Gluconate 0.12% Liq 15 ML UDC SWISH-SPIT SCH ×2 (09:51→21:31)
[2017-11-18] MEDS: Multivitamin/Minerals Therapeutic Tablet NG/OG SCH ×2 (09:51→21:30)
[2017-11-18] MEDS: Ascorbic Acid 500 MG Tablet NG/OG SCH (09:51)
[2017-11-18] MEDS: Enoxaparin Inj 40 MG/0.4 ML Syringe SQ SCH (09:51)
[2017-11-18] MEDS: Beneprotein Powder Packet NG/OG SCH ×3 (09:53→18:54)
[2017-11-19] MEDS: Gentamicin 0.3% Opth Drops 5 ML Bottle LEFT EYE SCH ×2 (04:22→08:55)
[2017-11-19] MEDS: Enoxaparin Inj 40 MG/0.4 ML Syringe SQ SCH (08:54)
[2017-11-19] MEDS: Beneprotein Powder Packet NG/OG SCH ×3 (08:55→18:00)
[2017-11-19] MEDS: Ascorbic Acid 500 MG Tablet NG/OG SCH (08:55)
[2017-11-19] MEDS: Chlorhexidine Gluconate 0.12% Liq 15 ML UDC SWISH-SPIT SCH ×2 (08:55→21:58)
[2017-11-19] MEDS: Metoprolol Tartrate 25 MG Tablet G-TUBE SCH ×2 (08:55→21:57)
[2017-11-19] MEDS: Multivitamin/Minerals Therapeutic Tablet NG/OG SCH ×2 (08:55→21:58)
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
[2017-11-20] MEDS: Enoxaparin Inj 40 MG/0.4 ML Syringe SQ SCH (09:26)
[2017-11-20] MEDS: Metoprolol Tartrate 25 MG Tablet G-TUBE SCH ×2 (09:27→21:29)
[2017-11-20] MEDS: Ascorbic Acid 500 MG Tablet NG/OG SCH (09:27)
[2017-11-20] MEDS: Chlorhexidine Gluconate 0.12% Liq 15 ML UDC SWISH-SPIT SCH ×2 (09:28→21:30)
[2017-11-20] MEDS: Multivitamin/Minerals Therapeutic Tablet NG/OG SCH ×2 (09:28→21:29)
[2017-11-20] MEDS: Beneprotein Powder Packet NG/OG SCH ×3 (09:28→17:43)
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
[2017-11-21] MEDS: Multivitamin/Minerals Therapeutic Tablet NG/OG SCH ×2 (16:54→21:42)
[2017-11-21] MEDS: Enoxaparin Inj 40 MG/0.4 ML Syringe SQ SCH (16:54)
[2017-11-21] MEDS: Beneprotein Powder Packet NG/OG SCH (16:54)
[2017-11-21] MEDS: Ascorbic Acid 500 MG Tablet NG/OG SCH (16:54)
[2017-11-21] MEDS: Chlorhexidine Gluconate 0.12% Liq 15 ML UDC SWISH-SPIT SCH ×2 (16:54→21:42)
[2017-11-21] MEDS: Metoprolol Tartrate 25 MG Tablet G-TUBE SCH ×2 (16:54→21:42)
[2017-11-22] MEDS: Beneprotein Powder Packet NG/OG SCH ×4 (09:00→17:52)
[2017-11-22] MEDS: Multivitamin/Minerals Therapeutic Tablet NG/OG SCH ×2 (09:30→21:12)
[2017-11-22] MEDS: Chlorhexidine Gluconate 0.12% Liq 15 ML UDC SWISH-SPIT SCH ×2 (09:30→21:12)
[2017-11-22] MEDS: Metoprolol Tartrate 25 MG Tablet G-TUBE SCH ×2 (09:30→21:12)
[2017-11-22] MEDS: Enoxaparin Inj 40 MG/0.4 ML Syringe SQ SCH (09:31)
[2017-11-22] MEDS: Ascorbic Acid 500 MG Tablet NG/OG SCH (09:31)
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
[2017-11-23] MEDS: diazePAM 2 MG Tablet NG/OG PRN (01:41)
[2017-11-23] MEDS: Multivitamin/Minerals Therapeutic Tablet NG/OG SCH ×2 (08:52→21:00)
[2017-11-23] MEDS: Ascorbic Acid 500 MG Tablet NG/OG SCH (08:52)
[2017-11-23] MEDS: Chlorhexidine Gluconate 0.12% Liq 15 ML UDC SWISH-SPIT SCH ×2 (08:52→21:00)
[2017-11-23] MEDS: Beneprotein Powder Packet NG/OG SCH ×3 (08:52→18:00)
[2017-11-23] MEDS: Enoxaparin Inj 40 MG/0.4 ML Syringe SQ SCH (08:52)
[2017-11-23] MEDS: Metoprolol Tartrate 25 MG Tablet G-TUBE SCH ×2 (08:52→21:00)
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
[2017-11-24] MEDS: diazePAM 2 MG Tablet NG/OG PRN (01:32)
[2017-11-24] MEDS: Chlorhexidine Gluconate 0.12% Liq 15 ML UDC SWISH-SPIT SCH ×2 (08:42→21:00)
[2017-11-24] MEDS: Ascorbic Acid 500 MG Tablet NG/OG SCH (08:42)
[2017-11-24] MEDS: Multivitamin/Minerals Therapeutic Tablet NG/OG SCH ×2 (08:42→21:00)
[2017-11-24] MEDS: Metoprolol Tartrate 25 MG Tablet G-TUBE SCH ×2 (08:42→21:00)
[2017-11-24] MEDS: Beneprotein Powder Packet NG/OG SCH ×3 (08:42→18:00)
[2017-11-24] MEDS: Enoxaparin Inj 40 MG/0.4 ML Syringe SQ SCH (08:42)
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
[2017-11-25] MEDS: Chlorhexidine Gluconate 0.12% Liq 15 ML UDC SWISH-SPIT SCH ×2 (09:09→21:19)
[2017-11-25] MEDS: Multivitamin/Minerals Therapeutic Tablet NG/OG SCH ×2 (09:09→21:19)
[2017-11-25] MEDS: Enoxaparin Inj 40 MG/0.4 ML Syringe SQ SCH (09:09)
[2017-11-25] MEDS: Ascorbic Acid 500 MG Tablet NG/OG SCH (09:09)
[2017-11-25] MEDS: Metoprolol Tartrate 25 MG Tablet G-TUBE SCH ×2 (09:09→21:19)
[2017-11-25] MEDS: Beneprotein Powder Packet NG/OG SCH ×3 (09:10→17:34)
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
[2017-11-26] MEDS: Metoprolol Tartrate 25 MG Tablet G-TUBE SCH ×2 (10:33→22:27)
[2017-11-26] MEDS: Enoxaparin Inj 40 MG/0.4 ML Syringe SQ SCH (10:33)
[2017-11-26] MEDS: Multivitamin/Minerals Therapeutic Tablet NG/OG SCH ×2 (10:34→22:26)
[2017-11-26] MEDS: Beneprotein Powder Packet NG/OG SCH ×3 (10:34→17:00)
[2017-11-26] MEDS: Chlorhexidine Gluconate 0.12% Liq 15 ML UDC SWISH-SPIT SCH ×2 (10:34→22:31)
[2017-11-26] MEDS: Ascorbic Acid 500 MG Tablet NG/OG SCH (10:35)
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
[2017-11-27] MEDS: Enoxaparin Inj 40 MG/0.4 ML Syringe SQ SCH (09:30)
[2017-11-27] MEDS: Metoprolol Tartrate 25 MG Tablet G-TUBE SCH ×2 (09:30→21:00)
[2017-11-27] MEDS: Ascorbic Acid 500 MG Tablet NG/OG SCH (09:31)
[2017-11-27] MEDS: Multivitamin/Minerals Therapeutic Tablet NG/OG SCH ×2 (09:31→21:00)
[2017-11-27] MEDS: Chlorhexidine Gluconate 0.12% Liq 15 ML UDC SWISH-SPIT SCH ×2 (09:32→21:00)
[2017-11-27] MEDS: Beneprotein Powder Packet NG/OG SCH ×3 (09:32→17:14)
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
[2017-11-28] MEDS: Metoprolol Tartrate 25 MG Tablet G-TUBE SCH ×2 (09:25→21:09)
[2017-11-28] MEDS: Enoxaparin Inj 40 MG/0.4 ML Syringe SQ SCH (09:25)
[2017-11-28] MEDS: Multivitamin/Minerals Therapeutic Tablet NG/OG SCH ×2 (09:26→21:09)
[2017-11-28] MEDS: Ascorbic Acid 500 MG Tablet NG/OG SCH (09:26)
[2017-11-28] MEDS: Beneprotein Powder Packet NG/OG SCH ×3 (09:27→18:17)
[2017-11-28] MEDS: Chlorhexidine Gluconate 0.12% Liq 15 ML UDC SWISH-SPIT SCH ×2 (09:27→21:09)
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
[2017-11-29] MEDS: Chlorhexidine Gluconate 0.12% Liq 15 ML UDC SWISH-SPIT SCH ×2 (09:59→20:50)
[2017-11-29] MEDS: Enoxaparin Inj 40 MG/0.4 ML Syringe SQ SCH (09:59)
[2017-11-29] MEDS: Ascorbic Acid 500 MG Tablet NG/OG SCH (10:00)
[2017-11-29] MEDS: Metoprolol Tartrate 25 MG Tablet G-TUBE SCH ×2 (10:00→20:50)
[2017-11-29] MEDS: Multivitamin/Minerals Therapeutic Tablet NG/OG SCH ×2 (10:00→20:50)
[2017-11-29] MEDS: Beneprotein Powder Packet NG/OG SCH ×3 (10:00→19:31)
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
[2017-11-30 08:47] LABS: Baso # (Auto) 0.1 th/mm3 (0.0-0.2); Baso % (Auto) 0.8 % (0.0-2.0); Eos # (Auto) 0.3 th/mm3 (0.0-0.4); Eos % (Auto) 3.1 % (0.0-4.0); Hematocrit 41.5 % (39.0-51.0); Hemoglobin 14.3 gm/dL (13.0-17.0); Lymph % (Auto) 23.7 % (9.0-44.0); Mean Corpuscular HGB Conc 34.6 % (32.0-36.0); Mean Corpuscular Hemoglobin 29.6 pg (27.0-34.0); Mean Corpuscular Volume 85.7 fL (80.0-100.0); Mean Platelet Volume 9.6 fL (7.0-11.0); Mono # (Auto) 0.7 th/mm3 (0.0-0.9); Mono % (Auto) 7.9 % (0.0-8.0); Neut # (Auto) 5.3 th/mm3 (1.8-7.7); Neut % (Auto) 64.5 % (16.0-70.0); Platelet Count 236 th/mm3 (150-450); Red Blood Count 4.84 mil/mm3 (4.50-5.90); Red Cell Distribution Width 13.7 % (11.6-17.2); White Blood Count 8.2 th/mm3 (4.0-11.0)
[2017-11-30 09:05] LABS: Anion Gap 9 meq/L (5-15); Blood Urea Nitrogen 23 mg/dL (7-18); Calcium 8.7 mg/dL (8.5-10.1); Carbon Dioxide 26.5 meq/L (21.0-32.0); Chloride 105 meq/L (98-107); Glomerular Filtration Rate Greater Than 89 mL/min (>89); Glucose,Random 104 mg/dL (74-106); Magnesium 1.9 mg/dL (1.5-2.5); Potassium 3.9 meq/L (3.5-5.1); Sodium 140 meq/L (136-145)
[2017-11-30] MEDS: Polymyxin/Trimethop Opth Drops 10 ML Bottle EACH EYE SCH ×3 (09:30→21:25)
[2017-11-30] MEDS: Chlorhexidine Gluconate 0.12% Liq 15 ML UDC SWISH-SPIT SCH ×2 (09:42→21:25)
[2017-11-30] MEDS: Ascorbic Acid 500 MG Tablet NG/OG SCH (09:44)
[2017-11-30] MEDS: Enoxaparin Inj 40 MG/0.4 ML Syringe SQ SCH (09:45)
[2017-11-30] MEDS: Metoprolol Tartrate 25 MG Tablet G-TUBE SCH ×2 (09:45→21:24)
[2017-11-30] MEDS: Multivitamin/Minerals Therapeutic Tablet NG/OG SCH ×2 (09:45→21:24)
[2017-11-30] MEDS: Beneprotein Powder Packet NG/OG SCH ×3 (09:46→18:26)
[2017-11-30] MEDS: Lactic Acid (Ammonium Lactate) 12% Lotion 225 GM Bottle TOPICAL PRN (09:46)
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
[2017-12-01] MEDS: Polymyxin/Trimethop Opth Drops 10 ML Bottle EACH EYE SCH ×4 (03:45→21:24)
[2017-12-01] MEDS: Chlorhexidine Gluconate 0.12% Liq 15 ML UDC SWISH-SPIT SCH ×2 (08:23→21:24)
[2017-12-01] MEDS: Beneprotein Powder Packet NG/OG SCH ×3 (08:25→17:10)
[2017-12-01] MEDS: Metoprolol Tartrate 25 MG Tablet G-TUBE SCH ×2 (08:25→21:24)
[2017-12-01] MEDS: [UNRECOGNIZED DRUG - OTHER] NG/OG PRN (08:25)
[2017-12-01] MEDS: Enoxaparin Inj 40 MG/0.4 ML Syringe SQ SCH (08:25)
[2017-12-01] MEDS: Ascorbic Acid 500 MG Tablet NG/OG SCH (08:25)
[2017-12-01] MEDS: Multivitamin/Minerals Therapeutic Tablet NG/OG SCH ×2 (08:25→21:24)
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
[2017-12-02] MEDS: Polymyxin/Trimethop Opth Drops 10 ML Bottle EACH EYE SCH ×4 (05:19→21:54)
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
[2017-12-02] MEDS: Enoxaparin Inj 40 MG/0.4 ML Syringe SQ SCH (10:41)
[2017-12-02] MEDS: Metoprolol Tartrate 25 MG Tablet G-TUBE SCH ×2 (10:42→21:53)
[2017-12-02] MEDS: Multivitamin/Minerals Therapeutic Tablet NG/OG SCH ×2 (10:42→21:53)
[2017-12-02] MEDS: Ascorbic Acid 500 MG Tablet NG/OG SCH (10:42)
[2017-12-02] MEDS: Chlorhexidine Gluconate 0.12% Liq 15 ML UDC SWISH-SPIT SCH ×2 (10:42→21:00)
[2017-12-02] MEDS: Beneprotein Powder Packet NG/OG SCH ×3 (10:44→18:00)
[2017-12-03] MEDS: Polymyxin/Trimethop Opth Drops 10 ML Bottle EACH EYE SCH ×4 (03:27→21:55)
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
[2017-12-03] MEDS: Chlorhexidine Gluconate 0.12% Liq 15 ML UDC SWISH-SPIT SCH ×2 (10:51→21:55)
[2017-12-03] MEDS: Enoxaparin Inj 40 MG/0.4 ML Syringe SQ SCH (10:51)
[2017-12-03] MEDS: Beneprotein Powder Packet NG/OG SCH ×3 (10:52→18:00)
[2017-12-03] MEDS: Multivitamin/Minerals Therapeutic Tablet NG/OG SCH ×2 (10:52→21:55)
[2017-12-03] MEDS: Metoprolol Tartrate 25 MG Tablet G-TUBE SCH ×2 (10:52→21:55)
[2017-12-03] MEDS: Ascorbic Acid 500 MG Tablet NG/OG SCH (10:52)
[2017-12-04] MEDS: Polymyxin/Trimethop Opth Drops 10 ML Bottle EACH EYE SCH ×4 (06:01→20:29)
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
[2017-12-04] MEDS: Chlorhexidine Gluconate 0.12% Liq 15 ML UDC SWISH-SPIT SCH ×2 (08:59→20:28)
[2017-12-04] MEDS: Enoxaparin Inj 40 MG/0.4 ML Syringe SQ SCH (08:59)
[2017-12-04] MEDS: Ascorbic Acid 500 MG Tablet NG/OG SCH (08:59)
[2017-12-04] MEDS: [UNRECOGNIZED DRUG - OTHER] NG/OG PRN (08:59)
[2017-12-04] MEDS: Metoprolol Tartrate 25 MG Tablet G-TUBE SCH ×2 (08:59→20:24)
[2017-12-04] MEDS: Multivitamin/Minerals Therapeutic Tablet NG/OG SCH ×2 (09:00→20:24)
[2017-12-04] MEDS: Beneprotein Powder Packet NG/OG SCH ×3 (09:00→17:08)
[2017-12-05] MEDS: Polymyxin/Trimethop Opth Drops 10 ML Bottle EACH EYE SCH ×4 (03:52→21:30)
[2017-12-05] MEDS: Enoxaparin Inj 40 MG/0.4 ML Syringe SQ SCH (09:55)
[2017-12-05] MEDS: Chlorhexidine Gluconate 0.12% Liq 15 ML UDC SWISH-SPIT SCH ×2 (09:55→21:25)
[2017-12-05] MEDS: Metoprolol Tartrate 25 MG Tablet G-TUBE SCH ×2 (09:55→21:24)
[2017-12-05] MEDS: Beneprotein Powder Packet G-TUBE SCH ×2 (12:00→18:01)
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
[2017-12-05] MEDS: Multivitamin/Minerals Therapeutic Tablet G-TUBE SCH (21:25)
[2017-12-06] MEDS: Polymyxin/Trimethop Opth Drops 10 ML Bottle EACH EYE SCH ×4 (03:00→21:30)
[2017-12-06] MEDS: Beneprotein Powder Packet G-TUBE SCH ×3 (09:35→17:14)
[2017-12-06] MEDS: Multivitamin/Minerals Therapeutic Tablet G-TUBE SCH ×2 (09:36→21:39)
[2017-12-06] MEDS: Enoxaparin Inj 40 MG/0.4 ML Syringe SQ SCH (09:36)
[2017-12-06] MEDS: Ascorbic Acid 500 MG Tablet G-TUBE SCH (09:37)
[2017-12-06] MEDS: Metoprolol Tartrate 25 MG Tablet G-TUBE SCH ×2 (09:38→21:38)
[2017-12-06] MEDS: Chlorhexidine Gluconate 0.12% Liq 15 ML UDC SWISH-SPIT SCH ×2 (09:38→21:37)
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
[2017-12-07] MEDS: Polymyxin/Trimethop Opth Drops 10 ML Bottle EACH EYE SCH ×4 (03:00→21:30)
[2017-12-07] MEDS: Beneprotein Powder Packet G-TUBE SCH ×3 (09:00→17:26)
[2017-12-07] MEDS: Enoxaparin Inj 40 MG/0.4 ML Syringe SQ SCH (09:00)
[2017-12-07] MEDS: Metoprolol Tartrate 25 MG Tablet G-TUBE SCH ×2 (09:00→20:49)
[2017-12-07] MEDS: Ascorbic Acid 500 MG Tablet G-TUBE SCH (09:00)
[2017-12-07] MEDS: Multivitamin/Minerals Therapeutic Tablet G-TUBE SCH ×2 (11:12→20:50)
[2017-12-07] MEDS: Chlorhexidine Gluconate 0.12% Liq 15 ML UDC SWISH-SPIT SCH ×2 (11:12→21:00)
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
[2017-12-07] MEDS: Beneprotein Powder Packet NG/OG SCH (18:19)
[2017-12-07] MEDS: Multivitamin/Minerals Therapeutic Tablet NG/OG SCH (18:19)
[2017-12-07] MEDS: Ascorbic Acid 500 MG Tablet NG/OG SCH (18:20)
[2017-12-08] MEDS: Polymyxin/Trimethop Opth Drops 10 ML Bottle EACH EYE SCH ×3 (03:30→16:08)
[2017-12-08] MEDS: Multivitamin/Minerals Therapeutic Tablet G-TUBE SCH ×2 (09:00→21:48)
[2017-12-08] MEDS: Chlorhexidine Gluconate 0.12% Liq 15 ML UDC SWISH-SPIT SCH ×2 (09:00→21:47)
[2017-12-08] MEDS: Beneprotein Powder Packet G-TUBE SCH ×3 (09:00→17:08)
[2017-12-08] MEDS: Ascorbic Acid 500 MG Tablet G-TUBE SCH (09:00)
[2017-12-08] MEDS: Metoprolol Tartrate 25 MG Tablet G-TUBE SCH ×2 (09:00→21:48)
[2017-12-08] MEDS: Enoxaparin Inj 40 MG/0.4 ML Syringe SQ SCH (09:00)
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
[2017-12-09] MEDS: Metoprolol Tartrate 25 MG Tablet G-TUBE SCH ×2 (09:37→20:22)
[2017-12-09] MEDS: Multivitamin/Minerals Therapeutic Tablet G-TUBE SCH ×2 (09:38→20:23)
[2017-12-09] MEDS: Enoxaparin Inj 40 MG/0.4 ML Syringe SQ SCH (09:38)
[2017-12-09] MEDS: Ascorbic Acid 500 MG Tablet G-TUBE SCH (09:38)
[2017-12-09] MEDS: Beneprotein Powder Packet G-TUBE SCH ×3 (09:39→17:25)
[2017-12-09] MEDS: Chlorhexidine Gluconate 0.12% Liq 15 ML UDC SWISH-SPIT SCH ×2 (09:39→20:23)
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
[2017-12-10] MEDS: Metoprolol Tartrate 25 MG Tablet G-TUBE SCH ×2 (08:43→20:12)
[2017-12-10] MEDS: Ascorbic Acid 500 MG Tablet G-TUBE SCH (08:43)
[2017-12-10] MEDS: Multivitamin/Minerals Therapeutic Tablet G-TUBE SCH ×2 (08:43→20:42)
[2017-12-10] MEDS: Enoxaparin Inj 40 MG/0.4 ML Syringe SQ SCH (08:44)
[2017-12-10] MEDS: Chlorhexidine Gluconate 0.12% Liq 15 ML UDC SWISH-SPIT SCH ×2 (08:45→20:42)
[2017-12-10] MEDS: Beneprotein Powder Packet G-TUBE SCH ×3 (08:45→17:36)
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
[2017-12-11] MEDS: Chlorhexidine Gluconate 0.12% Liq 15 ML UDC SWISH-SPIT SCH ×2 (09:00→21:00)
[2017-12-11] MEDS: Enoxaparin Inj 40 MG/0.4 ML Syringe SQ SCH (09:00)
[2017-12-11] MEDS: Beneprotein Powder Packet G-TUBE SCH ×3 (09:00→17:54)
[2017-12-11] MEDS: Multivitamin/Minerals Therapeutic Tablet G-TUBE SCH ×2 (09:00→21:14)
[2017-12-11] MEDS: Metoprolol Tartrate 25 MG Tablet G-TUBE SCH ×2 (09:00→21:13)
[2017-12-11] MEDS: Ascorbic Acid 500 MG Tablet G-TUBE SCH (09:00)
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
[2017-12-12] MEDS: Enoxaparin Inj 40 MG/0.4 ML Syringe SQ SCH (08:58)
[2017-12-12] MEDS: Multivitamin/Minerals Therapeutic Tablet G-TUBE SCH ×2 (08:58→21:15)
[2017-12-12] MEDS: Metoprolol Tartrate 25 MG Tablet G-TUBE SCH ×2 (08:58→21:15)
[2017-12-12] MEDS: Beneprotein Powder Packet G-TUBE SCH ×3 (08:59→17:04)
[2017-12-12] MEDS: Ascorbic Acid 500 MG Tablet G-TUBE SCH (08:59)
[2017-12-12] MEDS: Chlorhexidine Gluconate 0.12% Liq 15 ML UDC SWISH-SPIT SCH ×2 (08:59→21:00)
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
[2017-12-13] MEDS: [UNRECOGNIZED DRUG - OTHER] G-TUBE PRN (09:35)
[2017-12-13] MEDS: Metoprolol Tartrate 25 MG Tablet G-TUBE SCH ×2 (09:35→21:17)
[2017-12-13] MEDS: Multivitamin/Minerals Therapeutic Tablet G-TUBE SCH ×2 (09:35→21:15)
[2017-12-13] MEDS: Chlorhexidine Gluconate 0.12% Liq 15 ML UDC SWISH-SPIT SCH ×2 (09:35→21:18)
[2017-12-13] MEDS: Beneprotein Powder Packet G-TUBE SCH ×3 (09:36→17:12)
[2017-12-13] MEDS: Ascorbic Acid 500 MG Tablet G-TUBE SCH (09:36)
[2017-12-13] MEDS: Enoxaparin Inj 40 MG/0.4 ML Syringe SQ SCH (09:36)
[2017-12-14] MEDS: Ascorbic Acid 500 MG Tablet G-TUBE SCH (09:32)
[2017-12-14] MEDS: Metoprolol Tartrate 25 MG Tablet G-TUBE SCH ×2 (09:32→21:11)
[2017-12-14] MEDS: Enoxaparin Inj 40 MG/0.4 ML Syringe SQ SCH (09:32)
[2017-12-14] MEDS: Chlorhexidine Gluconate 0.12% Liq 15 ML UDC SWISH-SPIT SCH (09:32)
[2017-12-14] MEDS: Multivitamin/Minerals Therapeutic Tablet G-TUBE SCH ×2 (09:33→21:11)
[2017-12-14] MEDS: Beneprotein Powder Packet G-TUBE SCH ×3 (09:33→17:04)
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
[2017-12-15 08:32] LABS: Baso # (Auto) 0.1 th/mm3 (0.0-0.2); Baso % (Auto) 0.7 % (0.0-2.0); Eos # (Auto) 0.2 th/mm3 (0.0-0.4); Eos % (Auto) 2.6 % (0.0-4.0); Hematocrit 42.1 % (39.0-51.0); Lymph # (Auto) 1.6 th/mm3 (1.0-4.8); Lymph % (Auto) 20.8 % (9.0-44.0); Mean Corpuscular HGB Conc 33.3 % (32.0-36.0); Mean Corpuscular Hemoglobin 29.3 pg (27.0-34.0); Mean Corpuscular Volume 87.9 fL (80.0-100.0); Mean Platelet Volume 9.3 fL (7.0-11.0); Mono # (Auto) 0.6 th/mm3 (0.0-0.9); Mono % (Auto) 8.1 % (0.0-8.0); Neut # (Auto) 5.1 th/mm3 (1.8-7.7); Neut % (Auto) 67.8 % (16.0-70.0); Platelet Count 236 th/mm3 (150-450); Red Blood Count 4.79 mil/mm3 (4.50-5.90); Red Cell Distribution Width 13.6 % (11.6-17.2); White Blood Count 7.5 th/mm3 (4.0-11.0)
[2017-12-15] MEDS: Enoxaparin Inj 40 MG/0.4 ML Syringe SQ SCH (08:36)
[2017-12-15] MEDS: Ascorbic Acid 500 MG Tablet G-TUBE SCH (08:37)
[2017-12-15] MEDS: Metoprolol Tartrate 25 MG Tablet G-TUBE SCH ×2 (08:37→20:57)
[2017-12-15] MEDS: Multivitamin/Minerals Therapeutic Tablet G-TUBE SCH ×2 (08:37→21:29)
[2017-12-15] MEDS: Beneprotein Powder Packet G-TUBE SCH ×3 (08:37→17:36)
[2017-12-15 08:48] LABS: Albumin 3.3 g/dL (3.4-5.0); Anion Gap 11 meq/L (5-15); Aspartate Aminotransferase 13 U/L (15-37); Blood Urea Nitrogen 22 mg/dL (7-18); Calcium 8.5 mg/dL (8.5-10.1); Carbon Dioxide 24.2 meq/L (21.0-32.0); Chloride 106 meq/L (98-107); Glomerular Filtration Rate Greater Than 89 mL/min (>89); Glucose,Random 101 mg/dL (74-106); Magnesium 1.8 mg/dL (1.5-2.5); Potassium 4.1 meq/L (3.5-5.1); Sodium 141 meq/L (136-145)
[2017-12-15 08:49] LABS: Alanine Aminotransferase 23 U/L (12-78)
[2017-12-15 08:58] LABS: Alkaline Phosphatase 101 U/L (45-117); Free T4 (Free Thyroxine) 0.97 ng/dL (0.76-1.46); Phosphorus 3.6 mg/dL (2.5-4.9); Total Protein 7.5 g/dL (6.4-8.2)
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
[2017-12-16] MEDS: Ascorbic Acid 500 MG Tablet G-TUBE SCH (08:15)
[2017-12-16] MEDS: Metoprolol Tartrate 25 MG Tablet G-TUBE SCH ×2 (08:16→20:04)
[2017-12-16] MEDS: Beneprotein Powder Packet G-TUBE SCH ×3 (08:16→18:09)
[2017-12-16] MEDS: Multivitamin/Minerals Therapeutic Tablet G-TUBE SCH ×2 (08:16→20:04)
[2017-12-16] MEDS: Enoxaparin Inj 40 MG/0.4 ML Syringe SQ SCH (08:16)
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
[2017-12-17] MEDS: Multivitamin/Minerals Therapeutic Tablet G-TUBE SCH ×2 (09:12→22:16)
[2017-12-17] MEDS: Metoprolol Tartrate 25 MG Tablet G-TUBE SCH ×3 (09:12→22:17)
[2017-12-17] MEDS: Enoxaparin Inj 40 MG/0.4 ML Syringe SQ SCH (09:12)
[2017-12-17] MEDS: Ascorbic Acid 500 MG Tablet G-TUBE SCH (09:12)
[2017-12-17] MEDS: Beneprotein Powder Packet G-TUBE SCH ×3 (09:20→17:36)
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
[2017-12-18] MEDS: Metoprolol Tartrate 25 MG Tablet G-TUBE SCH ×2 (09:49→20:08)
[2017-12-18] MEDS: [UNRECOGNIZED DRUG - OTHER] G-TUBE PRN (09:49)
[2017-12-18] MEDS: Ascorbic Acid 500 MG Tablet G-TUBE SCH (09:49)
[2017-12-18] MEDS: Beneprotein Powder Packet G-TUBE SCH ×3 (09:50→17:14)
[2017-12-18] MEDS: Enoxaparin Inj 40 MG/0.4 ML Syringe SQ SCH (09:50)
[2017-12-18] MEDS: Multivitamin/Minerals Therapeutic Tablet G-TUBE SCH ×2 (09:50→20:08)
--- NOTE | 2017-12-18 16:26 | P.PNPAL ---
Met with patient's father and stepmother at bedside today at their request. Reviewed possibility of acceptance by a facility in [place], however not yet finalized. Facility continues to review the records and financials, pending finalization. Family is content with that placement if it comes to fruition. Discussed patient's condition, worsening contractures, the irreversibility of those contractures. Family discussed the permanent placement of patient's 3 children, 2 with adoptive families and 1 with the patient's parents. They are happy that the children are settling into a permanent and healthy environment. They discuss these events with the patient, who remains unresponsive. Father believes that his son is focusing on him and tracking him. They discussed physical therapy and were informed that the patient continues to receive physical therapy and muscle relaxants to try to reduce the contractures, with no success. Family is appreciative of palliative care support and continues to maintain contact for any questions or concerns they have. This was discussed with Justice laguna who informed me that he had no outstanding paperwork or issues for the family to address during their visit. Awaiting placement.
[2017-12-19] MEDS: Enoxaparin Inj 40 MG/0.4 ML Syringe SQ SCH (09:07)
[2017-12-19] MEDS: Metoprolol Tartrate 25 MG Tablet G-TUBE SCH ×2 (09:07→21:14)
[2017-12-19] MEDS: Beneprotein Powder Packet G-TUBE SCH ×3 (09:07→18:20)
[2017-12-19] MEDS: Ascorbic Acid 500 MG Tablet G-TUBE SCH (09:08)
[2017-12-19] MEDS: Multivitamin/Minerals Therapeutic Tablet G-TUBE SCH ×2 (09:08→21:14)
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
[2017-12-20] MEDS: Enoxaparin Inj 40 MG/0.4 ML Syringe SQ SCH (09:20)
[2017-12-20] MEDS: Metoprolol Tartrate 25 MG Tablet G-TUBE SCH ×2 (09:21→20:27)
[2017-12-20] MEDS: [UNRECOGNIZED DRUG - OTHER] G-TUBE PRN (09:21)
[2017-12-20] MEDS: Multivitamin/Minerals Therapeutic Tablet G-TUBE SCH ×2 (09:21→20:26)
[2017-12-20] MEDS: Beneprotein Powder Packet G-TUBE SCH ×3 (09:21→17:23)
[2017-12-20] MEDS: Ascorbic Acid 500 MG Tablet G-TUBE SCH (09:21)
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
[2017-12-21] MEDS: Multivitamin/Minerals Therapeutic Tablet G-TUBE SCH ×2 (09:42→20:26)
[2017-12-21] MEDS: Metoprolol Tartrate 25 MG Tablet G-TUBE SCH ×2 (09:42→20:26)
[2017-12-21] MEDS: Ascorbic Acid 500 MG Tablet G-TUBE SCH (09:42)
[2017-12-21] MEDS: Enoxaparin Inj 40 MG/0.4 ML Syringe SQ SCH (09:42)
[2017-12-21] MEDS: Beneprotein Powder Packet G-TUBE SCH ×3 (09:43→18:47)
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
[2017-12-22] MEDS: Enoxaparin Inj 40 MG/0.4 ML Syringe SQ SCH (09:00)
[2017-12-22] MEDS: Multivitamin/Minerals Therapeutic Tablet G-TUBE SCH ×2 (09:00→20:23)
[2017-12-22] MEDS: Ascorbic Acid 500 MG Tablet G-TUBE SCH (09:00)
[2017-12-22] MEDS: Metoprolol Tartrate 25 MG Tablet G-TUBE SCH ×2 (09:00→20:24)
[2017-12-22] MEDS: Beneprotein Powder Packet G-TUBE SCH ×3 (09:00→17:42)
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
[2017-12-23] MEDS: Enoxaparin Inj 40 MG/0.4 ML Syringe SQ SCH (13:39)
[2017-12-23] MEDS: Metoprolol Tartrate 25 MG Tablet G-TUBE SCH ×2 (13:39→20:39)
[2017-12-23] MEDS: Beneprotein Powder Packet G-TUBE SCH ×3 (13:39→17:00)
[2017-12-23] MEDS: Multivitamin/Minerals Therapeutic Tablet G-TUBE SCH ×2 (13:40→20:39)
[2017-12-23] MEDS: Ascorbic Acid 500 MG Tablet G-TUBE SCH (13:40)
[2017-12-24] MEDS: Multivitamin/Minerals Therapeutic Tablet G-TUBE SCH ×2 (09:46→22:41)
[2017-12-24] MEDS: Enoxaparin Inj 40 MG/0.4 ML Syringe SQ SCH (09:46)
[2017-12-24] MEDS: Metoprolol Tartrate 25 MG Tablet G-TUBE SCH ×2 (09:46→22:40)
[2017-12-24] MEDS: Ascorbic Acid 500 MG Tablet G-TUBE SCH (09:46)
[2017-12-24] MEDS: Beneprotein Powder Packet G-TUBE SCH ×3 (09:47→17:39)
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
[2017-12-25] MEDS: Enoxaparin Inj 40 MG/0.4 ML Syringe SQ SCH (09:00)
[2017-12-25] MEDS: Multivitamin/Minerals Therapeutic Tablet G-TUBE SCH ×2 (09:00→20:59)
[2017-12-25] MEDS: Metoprolol Tartrate 25 MG Tablet G-TUBE SCH ×2 (09:00→20:59)
[2017-12-25] MEDS: Beneprotein Powder Packet G-TUBE SCH ×3 (09:00→17:01)
[2017-12-25] MEDS: Ascorbic Acid 500 MG Tablet G-TUBE SCH (09:00)
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
[2017-12-26] MEDS: Enoxaparin Inj 40 MG/0.4 ML Syringe SQ SCH (09:00)
[2017-12-26] MEDS: Ascorbic Acid 500 MG Tablet G-TUBE SCH (09:30)
[2017-12-26] MEDS: Multivitamin/Minerals Therapeutic Tablet G-TUBE SCH ×2 (09:30→21:50)
[2017-12-26] MEDS: Metoprolol Tartrate 25 MG Tablet G-TUBE SCH ×2 (09:30→21:50)
[2017-12-26] MEDS: Beneprotein Powder Packet G-TUBE SCH ×3 (09:30→17:12)
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
[2017-12-27] MEDS: Beneprotein Powder Packet G-TUBE SCH ×3 (09:02→17:16)
[2017-12-27] MEDS: Metoprolol Tartrate 25 MG Tablet G-TUBE SCH ×2 (09:02→21:10)
[2017-12-27] MEDS: Enoxaparin Inj 40 MG/0.4 ML Syringe SQ SCH (09:02)
[2017-12-27] MEDS: Ascorbic Acid 500 MG Tablet G-TUBE SCH (09:03)
[2017-12-27] MEDS: Multivitamin/Minerals Therapeutic Tablet G-TUBE SCH ×2 (09:03→21:10)
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
[2017-12-28] MEDS: Metoprolol Tartrate 25 MG Tablet G-TUBE SCH ×2 (10:39→21:29)
[2017-12-28] MEDS: Enoxaparin Inj 40 MG/0.4 ML Syringe SQ SCH (10:39)
[2017-12-28] MEDS: Beneprotein Powder Packet G-TUBE SCH ×3 (10:39→18:34)
[2017-12-28] MEDS: Ascorbic Acid 500 MG Tablet G-TUBE SCH (10:40)
[2017-12-28] MEDS: Multivitamin/Minerals Therapeutic Tablet G-TUBE SCH ×2 (10:40→21:30)
[2017-12-29] MEDS: Multivitamin/Minerals Therapeutic Tablet G-TUBE SCH ×2 (11:05→20:53)
[2017-12-29] MEDS: Ascorbic Acid 500 MG Tablet G-TUBE SCH (11:05)
[2017-12-29] MEDS: Metoprolol Tartrate 25 MG Tablet G-TUBE SCH ×2 (11:05→20:52)
[2017-12-29] MEDS: Beneprotein Powder Packet G-TUBE SCH ×3 (11:05→17:04)
[2017-12-29] MEDS: Enoxaparin Inj 40 MG/0.4 ML Syringe SQ SCH (11:05)
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
[2017-12-30] MEDS: Enoxaparin Inj 40 MG/0.4 ML Syringe SQ SCH (10:02)
[2017-12-30] MEDS: Ascorbic Acid 500 MG Tablet G-TUBE SCH (10:03)
[2017-12-30] MEDS: Beneprotein Powder Packet G-TUBE SCH ×3 (10:03→18:21)
[2017-12-30] MEDS: Multivitamin/Minerals Therapeutic Tablet G-TUBE SCH ×2 (10:03→20:53)
[2017-12-30] MEDS: Metoprolol Tartrate 25 MG Tablet G-TUBE SCH ×2 (10:03→20:53)
[2017-12-31] MEDS: Metoprolol Tartrate 25 MG Tablet G-TUBE SCH ×2 (09:00→22:00)
[2017-12-31] MEDS: Multivitamin/Minerals Therapeutic Tablet G-TUBE SCH ×2 (09:00→22:00)
[2017-12-31] MEDS: Beneprotein Powder Packet G-TUBE SCH ×3 (09:00→18:22)
[2017-12-31] MEDS: Ascorbic Acid 500 MG Tablet G-TUBE SCH (09:00)
[2017-12-31] MEDS: Enoxaparin Inj 40 MG/0.4 ML Syringe SQ SCH (09:00)
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
[2018-01-01] MEDS: Metoprolol Tartrate 25 MG Tablet G-TUBE SCH ×2 (10:13→20:26)
[2018-01-01] MEDS: Multivitamin/Minerals Therapeutic Tablet G-TUBE SCH ×2 (10:13→20:25)
[2018-01-01] MEDS: Beneprotein Powder Packet G-TUBE SCH ×3 (10:13→18:10)
[2018-01-01] MEDS: Enoxaparin Inj 40 MG/0.4 ML Syringe SQ SCH (10:13)
[2018-01-01] MEDS: Ascorbic Acid 500 MG Tablet G-TUBE SCH (10:13)
[2018-01-02] MEDS: Multivitamin/Minerals Therapeutic Tablet G-TUBE SCH ×2 (09:10→22:08)
[2018-01-02] MEDS: Enoxaparin Inj 40 MG/0.4 ML Syringe SQ SCH (09:10)
[2018-01-02] MEDS: Ascorbic Acid 500 MG Tablet G-TUBE SCH (09:10)
[2018-01-02] MEDS: Metoprolol Tartrate 25 MG Tablet G-TUBE SCH ×2 (09:10→22:08)
[2018-01-02] MEDS: Beneprotein Powder Packet G-TUBE SCH ×3 (09:11→18:34)
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
[2018-01-03] MEDS: Ascorbic Acid 500 MG Tablet G-TUBE SCH (09:33)
[2018-01-03] MEDS: Multivitamin/Minerals Therapeutic Tablet G-TUBE SCH ×2 (09:33→20:52)
[2018-01-03] MEDS: Enoxaparin Inj 40 MG/0.4 ML Syringe SQ SCH (09:34)
[2018-01-03] MEDS: Beneprotein Powder Packet G-TUBE SCH ×3 (09:34→18:30)
[2018-01-03] MEDS: Metoprolol Tartrate 25 MG Tablet G-TUBE SCH ×2 (09:34→20:52)
[2018-01-03] MEDS: [UNRECOGNIZED DRUG - OTHER] G-TUBE PRN (14:00)
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
[2018-01-04] MEDS: Enoxaparin Inj 40 MG/0.4 ML Syringe SQ SCH (11:02)
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
[2018-01-04] MEDS: Metoprolol Tartrate 25 MG Tablet G-TUBE SCH ×2 (11:03→21:57)
[2018-01-04] MEDS: Ascorbic Acid 500 MG Tablet G-TUBE SCH (11:04)
[2018-01-04] MEDS: Multivitamin/Minerals Therapeutic Tablet G-TUBE SCH ×2 (11:04→21:58)
[2018-01-04] MEDS: Beneprotein Powder Packet G-TUBE SCH ×3 (11:06→18:00)
[2018-01-05] MEDS: Multivitamin/Minerals Therapeutic Tablet G-TUBE SCH ×2 (09:37→21:23)
[2018-01-05] MEDS: Ascorbic Acid 500 MG Tablet G-TUBE SCH (09:37)
[2018-01-05] MEDS: Metoprolol Tartrate 25 MG Tablet G-TUBE SCH ×2 (09:37→21:23)
[2018-01-05] MEDS: Enoxaparin Inj 40 MG/0.4 ML Syringe SQ SCH (09:38)
[2018-01-05] MEDS: Beneprotein Powder Packet G-TUBE SCH ×3 (09:38→17:09)
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
[2018-01-06] MEDS: Enoxaparin Inj 40 MG/0.4 ML Syringe SQ SCH (09:05)
[2018-01-06] MEDS: Ascorbic Acid 500 MG Tablet G-TUBE SCH (09:05)
[2018-01-06] MEDS: Metoprolol Tartrate 25 MG Tablet G-TUBE SCH ×2 (09:05→20:19)
[2018-01-06] MEDS: Beneprotein Powder Packet G-TUBE SCH ×3 (09:05→17:34)
[2018-01-06] MEDS: Multivitamin/Minerals Therapeutic Tablet G-TUBE SCH ×2 (09:46→20:21)
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
[2018-01-07] MEDS: Metoprolol Tartrate 25 MG Tablet G-TUBE SCH ×2 (09:56→22:31)
[2018-01-07] MEDS: Ascorbic Acid 500 MG Tablet G-TUBE SCH (09:56)
[2018-01-07] MEDS: Enoxaparin Inj 40 MG/0.4 ML Syringe SQ SCH (09:56)
[2018-01-07] MEDS: Multivitamin/Minerals Therapeutic Tablet G-TUBE SCH ×2 (09:57→22:33)
[2018-01-07] MEDS: Beneprotein Powder Packet G-TUBE SCH ×3 (09:57→17:33)
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
[2018-01-08] MEDS: Enoxaparin Inj 40 MG/0.4 ML Syringe SQ SCH (09:14)
[2018-01-08] MEDS: Ascorbic Acid 500 MG Tablet G-TUBE SCH (09:14)
[2018-01-08] MEDS: Metoprolol Tartrate 25 MG Tablet G-TUBE SCH ×2 (09:14→20:58)
[2018-01-08] MEDS: Beneprotein Powder Packet G-TUBE SCH ×3 (09:15→18:00)
[2018-01-08] MEDS: Multivitamin/Minerals Therapeutic Tablet G-TUBE SCH ×2 (09:15→20:58)
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
[2018-01-09] MEDS: Metoprolol Tartrate 25 MG Tablet G-TUBE SCH ×2 (09:00→21:25)
[2018-01-09] MEDS: Multivitamin/Minerals Therapeutic Tablet G-TUBE SCH ×2 (09:00→21:25)
[2018-01-09] MEDS: Beneprotein Powder Packet G-TUBE SCH ×3 (09:00→18:01)
[2018-01-09] MEDS: Enoxaparin Inj 40 MG/0.4 ML Syringe SQ SCH (09:00)
[2018-01-09] MEDS: Ascorbic Acid 500 MG Tablet G-TUBE SCH (09:00)
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
[2018-01-10] MEDS: Multivitamin/Minerals Therapeutic Tablet G-TUBE SCH ×2 (08:51→20:59)
[2018-01-10] MEDS: Enoxaparin Inj 40 MG/0.4 ML Syringe SQ SCH (08:51)
[2018-01-10] MEDS: Beneprotein Powder Packet G-TUBE SCH ×3 (08:52→17:09)
[2018-01-10] MEDS: Metoprolol Tartrate 25 MG Tablet G-TUBE SCH ×2 (08:52→20:59)
[2018-01-10] MEDS: Ascorbic Acid 500 MG Tablet G-TUBE SCH (08:52)
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
[2018-01-11] MEDS: Beneprotein Powder Packet G-TUBE SCH ×3 (09:06→17:40)
[2018-01-11] MEDS: Metoprolol Tartrate 25 MG Tablet G-TUBE SCH ×2 (09:06→21:15)
[2018-01-11] MEDS: Ascorbic Acid 500 MG Tablet G-TUBE SCH (09:07)
[2018-01-11] MEDS: Multivitamin/Minerals Therapeutic Tablet G-TUBE SCH ×2 (09:07→21:16)
[2018-01-11] MEDS: Enoxaparin Inj 40 MG/0.4 ML Syringe SQ SCH (09:07)
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
[2018-01-12] MEDS: Enoxaparin Inj 40 MG/0.4 ML Syringe SQ SCH (09:02)
[2018-01-12] MEDS: Metoprolol Tartrate 25 MG Tablet G-TUBE SCH ×2 (09:02→20:07)
[2018-01-12] MEDS: Ascorbic Acid 500 MG Tablet G-TUBE SCH (09:02)
[2018-01-12] MEDS: Multivitamin/Minerals Therapeutic Tablet G-TUBE SCH ×2 (09:02→20:07)
[2018-01-12] MEDS: Beneprotein Powder Packet G-TUBE SCH ×3 (09:02→18:21)
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
[2018-01-13] MEDS: Enoxaparin Inj 40 MG/0.4 ML Syringe SQ SCH (08:45)
[2018-01-13] MEDS: Multivitamin/Minerals Therapeutic Tablet G-TUBE SCH ×2 (08:46→20:45)
[2018-01-13] MEDS: Beneprotein Powder Packet G-TUBE SCH ×3 (08:46→17:50)
[2018-01-13] MEDS: Metoprolol Tartrate 25 MG Tablet G-TUBE SCH ×2 (08:46→20:45)
[2018-01-13] MEDS: Ascorbic Acid 500 MG Tablet G-TUBE SCH (08:46)
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
[2018-01-14] MEDS: Ascorbic Acid 500 MG Tablet G-TUBE SCH (10:29)
[2018-01-14] MEDS: Metoprolol Tartrate 25 MG Tablet G-TUBE SCH ×2 (10:30→21:41)
[2018-01-14] MEDS: Beneprotein Powder Packet G-TUBE SCH ×3 (10:30→18:30)
[2018-01-14] MEDS: Enoxaparin Inj 40 MG/0.4 ML Syringe SQ SCH (10:30)
[2018-01-14] MEDS: Multivitamin/Minerals Therapeutic Tablet G-TUBE SCH ×2 (10:30→21:41)
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
[2018-01-15] MEDS: Metoprolol Tartrate 25 MG Tablet G-TUBE SCH ×2 (09:39→22:02)
[2018-01-15] MEDS: Multivitamin/Minerals Therapeutic Tablet G-TUBE SCH ×2 (09:39→22:02)
[2018-01-15] MEDS: Beneprotein Powder Packet G-TUBE SCH ×3 (09:40→17:18)
[2018-01-15] MEDS: Enoxaparin Inj 40 MG/0.4 ML Syringe SQ SCH (09:40)
[2018-01-15] MEDS: Ascorbic Acid 500 MG Tablet G-TUBE SCH (09:40)
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
[2018-01-16] MEDS: Multivitamin/Minerals Therapeutic Tablet G-TUBE SCH ×2 (10:20→21:42)
[2018-01-16] MEDS: Ascorbic Acid 500 MG Tablet G-TUBE SCH (10:21)
[2018-01-16] MEDS: Metoprolol Tartrate 25 MG Tablet G-TUBE SCH ×2 (10:21→21:42)
[2018-01-16] MEDS: Beneprotein Powder Packet G-TUBE SCH ×3 (10:22→18:39)
[2018-01-16] MEDS: Enoxaparin Inj 40 MG/0.4 ML Syringe SQ SCH (10:22)
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
[2018-01-17] MEDS: Beneprotein Powder Packet G-TUBE SCH ×3 (10:00→18:49)
[2018-01-17] MEDS: Metoprolol Tartrate 25 MG Tablet G-TUBE SCH ×2 (10:00→23:20)
[2018-01-17] MEDS: Ascorbic Acid 500 MG Tablet G-TUBE SCH (10:00)
[2018-01-17] MEDS: Enoxaparin Inj 40 MG/0.4 ML Syringe SQ SCH (10:00)
[2018-01-17] MEDS: Multivitamin/Minerals Therapeutic Tablet G-TUBE SCH ×2 (10:00→23:20)
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
[2018-01-18] MEDS: Metoprolol Tartrate 25 MG Tablet G-TUBE SCH ×2 (08:53→20:49)
[2018-01-18] MEDS: Enoxaparin Inj 40 MG/0.4 ML Syringe SQ SCH (08:53)
[2018-01-18] MEDS: Ascorbic Acid 500 MG Tablet G-TUBE SCH (08:53)
[2018-01-18] MEDS: Multivitamin/Minerals Therapeutic Tablet G-TUBE SCH ×2 (08:53→20:50)
[2018-01-18] MEDS: Beneprotein Powder Packet G-TUBE SCH ×3 (09:16→18:17)
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
[2018-01-19] MEDS: Ascorbic Acid 500 MG Tablet G-TUBE SCH (09:37)
[2018-01-19] MEDS: Metoprolol Tartrate 25 MG Tablet G-TUBE SCH ×2 (09:37→20:38)
[2018-01-19] MEDS: Enoxaparin Inj 40 MG/0.4 ML Syringe SQ SCH (09:38)
[2018-01-19] MEDS: Multivitamin/Minerals Therapeutic Tablet G-TUBE SCH ×2 (09:38→20:38)
[2018-01-19] MEDS: Beneprotein Powder Packet G-TUBE SCH ×3 (09:38→17:47)
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
[2018-01-20] MEDS: Enoxaparin Inj 40 MG/0.4 ML Syringe SQ SCH (08:42)
[2018-01-20] MEDS: Multivitamin/Minerals Therapeutic Tablet G-TUBE SCH ×2 (08:43→22:11)
[2018-01-20] MEDS: Ascorbic Acid 500 MG Tablet G-TUBE SCH (08:44)
[2018-01-20] MEDS: Beneprotein Powder Packet G-TUBE SCH ×3 (08:53→18:01)
[2018-01-20] MEDS: Metoprolol Tartrate 25 MG Tablet G-TUBE SCH ×2 (08:53→22:11)
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
[2018-01-21] MEDS: Enoxaparin Inj 40 MG/0.4 ML Syringe SQ SCH (08:29)
[2018-01-21] MEDS: Ascorbic Acid 500 MG Tablet G-TUBE SCH (08:30)
[2018-01-21] MEDS: Metoprolol Tartrate 25 MG Tablet G-TUBE SCH ×2 (08:30→21:11)
[2018-01-21] MEDS: Multivitamin/Minerals Therapeutic Tablet G-TUBE SCH ×2 (08:31→21:11)
[2018-01-21] MEDS: Beneprotein Powder Packet G-TUBE SCH ×2 (08:31→13:50)
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
[2018-01-22] MEDS: Beneprotein Powder Packet G-TUBE SCH ×4 (09:00→19:25)
[2018-01-22] MEDS: Multivitamin/Minerals Therapeutic Tablet G-TUBE SCH ×2 (10:30→21:06)
[2018-01-22] MEDS: Ascorbic Acid 500 MG Tablet G-TUBE SCH (10:30)
[2018-01-22] MEDS: Enoxaparin Inj 40 MG/0.4 ML Syringe SQ SCH (10:30)
[2018-01-22] MEDS: Metoprolol Tartrate 25 MG Tablet G-TUBE SCH ×2 (10:30→21:06)
--- NOTE | 2018-01-22 10:32 | P.PNIM ---
Subjective Interval history: DINORAH RN PATIENT NONVERBAL NO NEW ISSUES PER NURSING Physical Exam Vital signs: Vital Signs 01/21/18 18:29 01/21/18 20:00 Temperature 98.9 F Pulse Rate 99 H Respiratory Rate 20 Blood Pressure 120/75 Pulse Oximetry 99 100 Intake & Output 01/21/18 01/22/18 01/22/18 18:59 06:59 18:59 Intake Total 1385 / 1385 1325 / 1325 Output Total 850 / 850 1100 / 1100 Balance 535 / 535 225 / 225 Weight 72.5 kg Intake: Oral 0 / 0 Tube Feeding 825 / 825 825 / 825 Tube Irrigant 60 / 60 Water Bolus Amount 500 / 500 500 / 500 Output: Urine 0 / 0 Stool 0 / 0 Urine Amount (Catheter) 850 / 850 1100 / 1100 Condom 850 / 850 1100 / 1100 Other: Other Intake Source Saline Solution # Voids 0 # Incontinent Voids 0 Date of Last Bowel Movement 01/21/18 # Bowel Movements 1 # Incontinent Bowel Movements 0 # Emes[place] 0 Narrative: GENERAL: NAD, A&Ox0, nonverbal HEAD: Normocephalic. NECK: Supple, trachea midline. No lymphadenopathy. Tracheostomy present. EYES: No scleral icterus. No injection or drainage. CARDIOVASCULAR: Regular rate and rhythm without murmurs, gallops, or rubs. RESPIRATORY: Breath sounds equal bilaterally. No accessory muscle use. COARSE BS BL GASTROINTESTINAL: Abdomen soft, non-tender, nondistended. No erythema at tube feed site. PEG TUBE MUSCULOSKELETAL: No cyanosis, or edema. SKIN: Warm and dry. NEURO: Global neurological deficits. - Urinary Catheter Management Condom Cath placed during this visit: no Results - Labs CBC & Chem 7: 12/15/17 08:02 12/15/17 08:02 Laboratory Tests 01/12/17 01/12/17 01/12/17 06:19 06:19 06:19 WBC 21.3 H RBC 4.04 L Hgb 12.4 L POC Hgb 12.2 Hct 37.1 L POC Hct 36.0 L MCV 92.0 MCH 30.7 MCHC 33.3 RDW 12.8 Plt Count 252 MPV 8.6 Neut % (Auto) 81.1 H Lymph % (Auto) 13.3 [place] % (Auto) 4.2 Eos % (Auto) 0.6 Baso % (Auto) 0.8 Neut # (Auto) 17.3 H Lymph # (Auto) 2.8 [place] # (Auto) 0.9 Eos # (Auto) 0.1 Baso # (Auto) 0.2 CBC Comment AUTO DIFF WBC Differential Total Counted Neutrophils % (Manual) Band Neutrophils % Lymphocytes % Monocytes % Eosinophils % Basophils % Neutrophils # (Manual) Metamyelocytes Myelocytes Promyelocytes Nucleated RBCs Differential Comment AUTO DIFF CONFIRMED Toxic Granulation Platelet Estimate NORMAL Plt Morphology Comment NORMAL RBC Morph Comment NORMAL PT 12.4 H INR 1.1 APTT 29.1 Fibrinogen Puncture Site Patient Temperature HCO3 Base Excess O2 Saturation ABG pH ABG pCO2 ABG pO2 ABG O2 Content ABG Carboxyhemoglobin ABG Methemoglobin Hemoglobin O2 Delivery Device Liter Flow Vent Setting Inspired O2 POC Sodium 147 H Sodium POC Potassium 3.4 L Potassium POC Chloride 104 Chloride Carbon Dioxide Anion Gap POC BUN 4 L BUN Creatinine POC Creatinine 1.4 H Estimated GFR POC Glucose 102 H Random Glucose Hemoglobin A1c Serum Osmolality Lactic Acid Calcium Prot Corrected Calcium Phosphorus Magnesium Total Bilirubin Direct Bilirubin Indirect Bilirubin AST ALT Alkaline Phosphatase Ammonia Total Creatine Kinase CK-MB (CK-2) CK-MB (CK-2) % Troponin I B-Natriuretic Peptide Total Protein Albumin Prealbumin Procalcitonin TSH Free T4 TSH 3rd Generation Urine Color Urine Clarity Urine Turbidity Urine pH Ur Specific [place] Urine Protein Urine Glucose (UA) Urine Ketones Urine Occult Blood Urine Nitrate Urine Nitrite Urine Bilirubin Urine Urobilinogen Ur Leukocyte Esterase Urine RBC Urine WBC Ur Squamous Epith Cells Ur Transition Epith Cell Amorphous Sediment Urine Bacteria Hyaline Casts Urine Mucus Urine Yeast (Budding) Micro UA Comment Urine Culture Comments Urine Osmolality Ur Random Sodium CSF Volume (1) CSF Supernat Color (1) CSF Gross Blood (1) CSF Volume (2) CSF Supernat Color (2) CSF Gross Blood (2) CSF Volume (3) CSF Supernat Color (3) CSF Volume (4) CSF Supernat Color (4) CSF WBC (4) CSF RBC (4) CSF Neutrophils CSF Lymphocytes CSF Monocytes CSF Glucose CSF Total Protein Nasal Screen MRSA (PCR) Bronchial Other Cells BAL WBC BAL RBC BAL Neutrophils BAL Lymphocytes BAL Eosinophils BAL Plasma Cells BAL Histiocytes BAL Diff Comment Lavage Fld Tot Volume Lavage Tot WBC Count Stl C.difficile Tox PCR St C. diff Tox Epid 027 Vancomycin Trough Valproic Acid Levetiracetam Ethyl Alcohol 293 H 10/19/17 10/19/17 10/19/17 09:48 11:30 11:30 WBC RBC Hgb POC Hgb Hct POC Hct MCV MCH MCHC RDW Plt Count MPV Neut % (Auto) Lymph % (Auto) [place] % (Auto) Eos % (Auto) Baso % (Auto) Neut # (Auto) Lymph # (Auto) [place] # (Auto) Eos # (Auto) Baso # (Auto) CBC Comment WBC Differential Total Counted Neutrophils % (Manual) Band Neutrophils % Lymphocytes % Monocytes % Eosinophils % Basophils % Neutrophils # (Manual) Metamyelocytes Myelocytes Promyelocytes Nucleated RBCs Differential Comment Toxic Granulation Platelet Estimate Plt Morphology Comment RBC Morph Comment PT INR APTT Fibrinogen Puncture Site ART LINE Patient Temperature 98.6 HCO3 15 L* Base Excess -11.0 L O2 Saturation 97 ABG pH 7.26 L* ABG pCO2 33 L ABG pO2 530 H ABG O2 Content 20.3 H ABG Carboxyhemoglobin 0.4 ABG Methemoglobin 1.4 Hemoglobin 13.8 O2 Delivery Device VENTILATOR Liter Flow Vent Setting PRVC/16/550/1.0/+5 Inspired O2 100 POC Sodium Sodium 151 H POC Potassium Potassium 3.2 L POC Chloride Chloride 118 H Carbon Dioxide 23.1 Anion Gap 10 POC BUN BUN 6 L Creatinine 0.97 POC Creatinine Estimated GFR 93 POC Glucose Random Glucose 111 H Hemoglobin A1c Serum Osmolality Lactic Acid 3.2 H Calcium 5.9 L* Prot Corrected Calcium 7.5 L Phosphorus 1.8 L Magnesium 1.6 Total Bilirubin 0.3 Direct Bilirubin 0.2 Indirect Bilirubin 0.1 AST 99 H ALT 29 Alkaline Phosphatase 35 L Ammonia Total Creatine Kinase 1369 H CK-MB (CK-2) 16.2 H CK-MB (CK-2) % 1.2 Troponin I B-Natriuretic Peptide Total Protein 3.8 L Albumin 2.2 L Prealbumin Procalcitonin TSH Free T4 TSH 3rd Generation Urine Color Urine Clarity Urine Turbidity Urine pH Ur Specific [place] Urine Protein Urine Glucose (UA) Urine Ketones Urine Occult Blood Urine Nitrate Urine Nitrite Urine Bilirubin Urine Urobilinogen Ur Leukocyte Esterase Urine RBC Urine WBC Ur Squamous Epith Cells Ur Transition Epith Cell Amorphous Sediment Urine Bacteria Hyaline Casts Urine Mucus Urine Yeast (Budding) Micro UA Comment Urine Culture Comments Urine Osmolality Ur Random Sodium CSF Volume (1) CSF Supernat Color (1) CSF Gross Blood (1) CSF Volume (2) CSF Supernat Color (2) CSF Gross Blood (2) CSF Volume (3) CSF Supernat Color (3) CSF Volume (4) CSF Supernat Color (4) CSF WBC (4) CSF RBC (4) CSF Neutrophils CSF Lymphocytes CSF Monocytes CSF Glucose CSF Total Protein Nasal Screen MRSA (PCR) Bronchial Other Cells BAL WBC BAL RBC BAL Neutrophils BAL Lymphocytes BAL Eosinophils BAL Plasma Cells BAL Histiocytes BAL Diff Comment Lavage Fld Tot Volume Lavage Tot WBC Count Stl C.difficile Tox PCR St C. diff Tox Epid 027 Vancomycin Trough Valproic Acid Levetiracetam Ethyl Alcohol 01/12/17 01/12/17 01/12/17 11:30 11:30 14:53 WBC RBC Hgb 11.4 L 11.6 L POC Hgb Hct 33.1 L 34.3 L POC Hct MCV MCH MCHC RDW Plt Count MPV Neut % (Auto) Lymph % (Auto) [place] % (Auto) Eos % (Auto) Baso % (Auto) Neut # (Auto) Lymph # (Auto) [place] # (Auto) Eos # (Auto) Baso # (Auto) CBC Comment WBC Differential Total Counted Neutrophils % (Manual) Band Neutrophils % Lymphocytes % Monocytes % Eosinophils % Basophils % Neutrophils # (Manual) Metamyelocytes Myelocytes Promyelocytes Nucleated RBCs Differential Comment Toxic Granulation Platelet Estimate Plt Morphology Comment RBC Morph Comment PT INR APTT Fibrinogen 82 L* Puncture Site Patient Temperature HCO3 Base Excess O2 Saturation ABG pH ABG pCO2 ABG pO2 ABG O2 Content ABG Carboxyhemoglobin ABG Methemoglobin Hemoglobin O2 Delivery Device Liter Flow Vent Setting Inspired O2 POC Sodium Sodium POC Potassium Potassium POC Chloride Chloride Carbon Dioxide Anion Gap POC BUN BUN Creatinine POC Creatinine Estimated GFR POC Glucose Random Glucose Hemoglobin A1c Serum Osmolality Lactic Acid Calcium Prot Corrected Calcium Phosphorus Magnesium Total Bilirubin Direct Bilirubin Indirect Bilirubin AST ALT Alkaline Phosphatase Ammonia Total Creatine Kinase CK-MB (CK-2) CK-MB (CK-2) % Troponin I B-Natriuretic Peptide Total Protein Albumin Prealbumin Procalcitonin TSH Free T4 TSH 3rd Generation Urine Color Urine Clarity Urine Turbidity Urine pH Ur Specific [place] Urine Protein Urine Glucose (UA) Urine Ketones Urine Occult Blood Urine Nitrate Urine Nitrite Urine Bilirubin Urine Urobilinogen Ur Leukocyte Esterase Urine RBC Urine WBC Ur Squamous Epith Cells Ur Transition Epith Cell Amorphous Sediment Urine Bacteria Hyaline Casts Urine Mucus Urine Yeast (Budding) Micro UA Comment Urine Culture Comments Urine Osmolality Ur Random Sodium CSF Volume (1) CSF Supernat Color (1) CSF Gross Blood (1) CSF Volume (2) CSF Supernat Color (2) CSF Gross Blood (2) CSF Volume (3) CSF Supernat Color (3) CSF Volume (4) CSF Supernat Color (4) CSF WBC (4) CSF RBC (4) CSF Neutrophils CSF Lymphocytes CSF Monocytes CSF Glucose CSF Total Protein Nasal Screen MRSA (PCR) Bronchial Other Cells BAL WBC BAL RBC BAL Neutrophils BAL Lymphocytes BAL Eosinophils BAL Plasma Cells BAL Histiocytes BAL Diff Comment Lavage Fld Tot Volume Lavage Tot WBC Count Stl C.difficile Tox PCR St C. diff Tox Epid 027 Vancomycin Trough Valproic Acid Levetiracetam Ethyl Alcohol 01/12/17 01/12/17 01/12/17 14:53 17:29 18:18 WBC RBC Hgb POC Hgb Hct POC Hct MCV MCH MCHC RDW Plt Count MPV Neut % (Auto) Lymph % (Auto) [place] % (Auto) Eos % (Auto) Baso % (Auto) Neut # (Auto) Lymph # (Auto) [place] # (Auto) Eos # (Auto) Baso # (Auto) CBC Comment WBC Differential Total Counted Neutrophils % (Manual) Band Neutrophils % Lymphocytes % Monocytes % Eosinophils % Basophils % Neutrophils # (Manual) Metamyelocytes Myelocytes Promyelocytes Nucleated RBCs Differential Comment Toxic Granulation Platelet Estimate Plt Morphology Comment RBC Morph Comment PT INR APTT Fibrinogen Puncture Site ART LINE ART LINE Patient Temperature 98.6 98.6 HCO3 17 L 20 L Base Excess -8.6 L -5.5 L O2 Saturation 97 97 ABG pH 7.31 L 7.32 L ABG pCO2 34 L 39 ABG pO2 261 H 153 H ABG O2 Content 15.9 15.4 ABG Carboxyhemoglobin 0.7 0.0 ABG Methemoglobin 1.6 0.8 Hemoglobin 11.2 L 11.2 L O2 Delivery Device SEE OR VENTILATOR Liter Flow Vent Setting [facility]/16/550/+5/1.0 Inspired O2 40 POC Sodium Sodium 148 H POC Potassium Potassium POC Chloride Chloride Carbon Dioxide Anion Gap POC BUN BUN Creatinine POC Creatinine Estimated GFR POC Glucose Random Glucose Hemoglobin A1c Serum Osmolality Lactic Acid Calcium Prot Corrected Calcium Phosphorus Magnesium Total Bilirubin Direct Bilirubin Indirect Bilirubin AST ALT Alkaline Phosphatase Ammonia Total Creatine Kinase CK-MB (CK-2) CK-MB (CK-2) % Troponin I B-Natriuretic Peptide Total Protein Albumin Prealbumin Procalcitonin TSH Free T4 TSH 3rd Generation Urine Color Urine Clarity Urine Turbidity Urine pH Ur Specific [place] Urine Protein Urine Glucose (UA) Urine Ketones Urine Occult Blood Urine Nitrate Urine Nitrite Urine Bilirubin Urine Urobilinogen Ur Leukocyte Esterase Urine RBC Urine WBC Ur Squamous Epith Cells Ur Transition Epith Cell Amorphous Sediment Urine Bacteria Hyaline Casts Urine Mucus Urine Yeast (Budding) Micro UA Comment Urine Culture Comments Urine Osmolality Ur Random Sodium CSF Volume (1) CSF Supernat Color (1) CSF Gross Blood (1) CSF Volume (2) CSF Supernat Color (2) CSF Gross Blood (2) CSF Volume (3) CSF Supernat Color (3) CSF Volume (4) CSF Supernat Color (4) CSF WBC (4) CSF RBC (4) CSF Neutrophils CSF Lymphocytes CSF Monocytes CSF Glucose CSF Total Protein Nasal Screen MRSA (PCR) Bronchial Other Cells BAL WBC BAL RBC BAL Neutrophils BAL Lymphocytes BAL Eosinophils BAL Plasma Cells BAL Histiocytes BAL Diff Comment Lavage Fld Tot Volume Lavage Tot WBC Count Stl C.difficile Tox PCR St C. diff Tox Epid 027 Vancomycin Trough Valproic Acid Levetiracetam Ethyl Alcohol 01/12/17 01/12/17 01/13/17 18:18 18:18 00:08 WBC RBC Hgb 9.3 L D POC Hgb Hct 26.7 L POC Hct MCV MCH MCHC RDW Plt Count MPV Neut % (Auto) Lymph % (Auto) [place] % (Auto) Eos % (Auto) Baso % (Auto) Neut # (Auto) Lymph # (Auto) [place] # (Auto) Eos # (Auto) Baso # (Auto) CBC Comment WBC Differential Total Counted Neutrophils % (Manual) Band Neutrophils % Lymphocytes % Monocytes % Eosinophils % Basophils % Neutrophils # (Manual) Metamyelocytes Myelocytes Promyelocytes Nucleated RBCs Differential Comment Toxic Granulation Platelet Estimate Plt Morphology Comment RBC Morph Comment PT INR APTT Fibrinogen Puncture Site Patient Temperature HCO3 Base Excess O2 Saturation ABG pH ABG pCO2 ABG pO2 ABG O2 Content ABG Carboxyhemoglobin ABG Methemoglobin Hemoglobin O2 Delivery Device Liter Flow Vent Setting Inspired O2 POC Sodium Sodium POC Potassium Potassium POC Chloride Chloride Carbon Dioxide Anion Gap POC BUN BUN Creatinine POC Creatinine Estimated GFR POC Glucose Random Glucose Hemoglobin A1c Serum Osmolality Cancelled 305 H Lactic Acid Calcium Prot Corrected Calcium Phosphorus Magnesium Total Bilirubin Direct Bilirubin Indirect Bilirubin AST ALT Alkaline Phosphatase Ammonia Total Creatine Kinase CK-MB (CK-2) CK-MB (CK-2) % Troponin I B-Natriuretic Peptide Total Protein Albumin Prealbumin Procalcitonin TSH Free T4 TSH 3rd Generation Urine Color Urine Clarity Urine Turbidity Urine pH Ur Specific [place] Urine Protein Urine Glucose (UA) Urine Ketones Urine Occult Blood Urine Nitrate Urine Nitrite Urine Bilirubin Urine Urobilinogen Ur Leukocyte Esterase Urine RBC Urine WBC Ur Squamous Epith Cells Ur Transition Epith Cell Amorphous Sediment Urine Bacteria Hyaline Casts Urine Mucus Urine Yeast (Budding) Micro UA Comment Urine Culture Comments Urine Osmolality Ur Random Sodium CSF Volume (1) CSF Supernat Color (1) CSF Gross Blood (1) CSF Volume (2) CSF Supernat Color (2) CSF Gross Blood (2) CSF Volume (3) CSF Supernat Color (3) CSF Volume (4) CSF Supernat Color (4) CSF WBC (4) CSF RBC (4) CSF Neutrophils CSF Lymphocytes CSF Monocytes CSF Glucose CSF Total Protein Nasal Screen MRSA (PCR) Bronchial Other Cells BAL WBC BAL RBC BAL Neutrophils BAL Lymphocytes BAL Eosinophils BAL Plasma Cells BAL Histiocytes BAL Diff Comment Lavage Fld Tot Volume Lavage Tot WBC Count Stl C.difficile Tox PCR St C. diff Tox Epid 027 Vancomycin Trough Valproic Acid Levetiracetam Ethyl Alcohol 01/13/17 01/13/17 01/13/17 00:08 00:08 04:05 WBC RBC Hgb POC Hgb Hct POC Hct MCV MCH MCHC RDW Plt Count MPV Neut % (Auto) Lymph % (Auto) [place] % (Auto) Eos % (Auto) Baso % (Auto) Neut # (Auto) Lymph # (Auto) [place] # (Auto) Eos # (Auto) Baso # (Auto) CBC Comment WBC Differential Total Counted Neutrophils % (Manual) Band Neutrophils % Lymphocytes % Monocytes % Eosinophils % Basophils % Neutrophils # (Manual) Metamyelocytes Myelocytes Promyelocytes Nucleated RBCs Differential Comment Toxic Granulation Platelet Estimate Plt Morphology Comment RBC Morph Comment PT INR APTT Fibrinogen Puncture Site Patient Temperature HCO3 Base Excess O2 Saturation ABG pH ABG pCO2 ABG pO2 ABG O2 Content ABG Carboxyhemoglobin ABG Methemoglobin Hemoglobin O2 Delivery Device Liter Flow Vent Setting Inspired O2 POC Sodium Sodium 150 H POC Potassium Potassium 4.2 D POC Chloride Chloride Carbon Dioxide Anion Gap POC BUN BUN Creatinine POC Creatinine Estimated GFR POC Glucose Random Glucose Hemoglobin A1c Serum Osmolality 305 H Lactic Acid Calcium Prot Corrected Calcium Phosphorus 2.9 D Magnesium 1.8 Total Bilirubin Direct Bilirubin Indirect Bilirubin AST ALT Alkaline Phosphatase Ammonia 20 Total Creatine Kinase CK-MB (CK-2) CK-MB (CK-2) % Troponin I B-Natriuretic Peptide Total Protein Albumin Prealbumin Procalcitonin TSH Free T4 TSH 3rd Generation Urine Color Urine Clarity Urine Turbidity Urine pH Ur Specific [place] Urine Protein Urine Glucose (UA) Urine Ketones Urine Occult Blood Urine Nitrate Urine Nitrite Urine Bilirubin Urine Urobilinogen Ur Leukocyte Esterase Urine RBC Urine WBC Ur Squamous Epith Cells Ur Transition Epith Cell Amorphous Sediment Urine Bacteria Hyaline Casts Urine Mucus Urine Yeast (Budding) Micro UA Comment Urine Culture Comments Urine Osmolality Ur Random Sodium CSF Volume (1) CSF Supernat Color (1) CSF Gross Blood (1) CSF Volume (2) CSF Supernat Color (2) CSF Gross Blood (2) CSF Volume (3) CSF Supernat Color (3) CSF Volume (4) CSF Supernat Color (4) CSF WBC (4) CSF RBC (4) CSF Neutrophils CSF Lymphocytes CSF Monocytes CSF Glucose CSF Total Protein Nasal Screen MRSA (PCR) Bronchial Other Cells BAL WBC BAL RBC BAL Neutrophils BAL Lymphocytes BAL Eosinophils BAL Plasma Cells BAL Histiocytes BAL Diff Comment Lavage Fld Tot Volume Lavage Tot WBC Count Stl C.difficile Tox PCR St C. diff Tox Epid 027 Vancomycin Trough Valproic Acid Levetiracetam Ethyl Alcohol 01/13/17 01/13/17 01/13/17 04:05 04:05 04:05 WBC RBC Hgb POC Hgb Hct POC Hct MCV MCH MCHC RDW Plt Count MPV Neut % (Auto) Lymph % (Auto) [place] % (Auto) Eos % (Auto) Baso % (Auto) Neut # (Auto) Lymph # (Auto) [place] # (Auto) Eos # (Auto) Baso # (Auto) CBC Comment WBC Differential Total Counted Neutrophils % (Manual) Band Neutrophils % Lymphocytes % Monocytes % Eosinophils % Basophils % Neutrophils # (Manual) Metamyelocytes Myelocytes Promyelocytes Nucleated RBCs Differential Comment Toxic Granulation Platelet Estimate Plt Morphology Comment RBC Morph Comment PT INR APTT Fibrinogen Puncture Site Patient Temperature HCO3 Base Excess O2 Saturation ABG pH ABG pCO2 ABG pO2 ABG O2 Content ABG Carboxyhemoglobin ABG Methemoglobin Hemoglobin O2 Delivery Device Liter Flow Vent Setting Inspired O2 POC Sodium Sodium 148 H POC Potassium Potassium POC Chloride Chloride Carbon Dioxide Anion Gap POC BUN BUN Creatinine POC Creatinine Estimated GFR POC Glucose Random Glucose Hemoglobin A1c Serum Osmolality 304 H Lactic Acid 1.7 Calcium Prot Corrected Calcium Phosphorus 2.9 Magnesium 1.8 Total Bilirubin Direct Bilirubin Indirect Bilirubin AST ALT Alkaline Phosphatase Ammonia Total Creatine Kinase CK-MB (CK-2) CK-MB (CK-2) % Troponin I B-Natriuretic Peptide Total Protein Albumin Prealbumin Procalcitonin TSH Free T4 TSH 3rd Generation Urine Color Urine Clarity Urine Turbidity Urine pH Ur Specific [place] Urine Protein Urine Glucose (UA) Urine Ketones Urine Occult Blood Urine Nitrate Urine Nitrite Urine Bilirubin Urine Urobilinogen Ur Leukocyte Esterase Urine RBC Urine WBC Ur Squamous Epith Cells Ur Transition Epith Cell Amorphous Sediment Urine Bacteria Hyaline Casts Urine Mucus Urine Yeast (Budding) Micro UA Comment Urine Culture Comments Urine Osmolality Ur Random Sodium CSF Volume (1) CSF Supernat Color (1) CSF Gross Blood (1) CSF Volume (2) CSF Supernat Color (2) CSF Gross Blood (2) CSF Volume (3) CSF Supernat Color (3) CSF Volume (4) CSF Supernat Color (4) CSF WBC (4) CSF RBC (4) CSF Neutrophils CSF Lymphocytes CSF Monocytes CSF Glucose CSF Total Protein Nasal Screen MRSA (PCR) Bronchial Other Cells BAL WBC BAL RBC BAL Neutrophils BAL Lymphocytes BAL Eosinophils BAL Plasma Cells BAL Histiocytes BAL Diff Comment Lavage Fld Tot Volume Lavage Tot WBC Count Stl C.difficile Tox PCR St C. diff Tox Epid 027 Vancomycin Trough Valproic Acid Levetiracetam Ethyl Alcohol 01/13/17 01/13/17 01/13/17 04:05 12:06 12:06 WBC 11.6 H RBC 2.98 L Hgb 9.2 L POC Hgb Hct 26.7 L POC Hct MCV 89.9 MCH 30.9 MCHC 34.4 RDW 14.0 Plt Count 128 L D MPV 8.7 Neut % (Auto) Lymph % (Auto) [place] % (Auto) Eos % (Auto) Baso % (Auto) Neut # (Auto) Lymph # (Auto) [place] # (Auto) Eos # (Auto) Baso # (Auto) CBC Comment WBC Differential Total Counted Neutrophils % (Manual) Band Neutrophils % Lymphocytes % Monocytes % Eosinophils % Basophils % Neutrophils # (Manual) Metamyelocytes Myelocytes Promyelocytes Nucleated RBCs Differential Comment Toxic Granulation Platelet Estimate Plt Morphology Comment RBC Morph Comment PT INR APTT Fibrinogen Puncture Site Patient Temperature HCO3 Base Excess O2 Saturation ABG pH ABG pCO2 ABG pO2 ABG O2 Content ABG Carboxyhemoglobin ABG Methemoglobin Hemoglobin O2 Delivery Device Liter Flow Vent Setting Inspired O2 POC Sodium Sodium 148 H POC Potassium Potassium 4.3 POC Chloride Chloride 121 H Carbon Dioxide 21.8 Anion Gap 5 POC BUN BUN 8 Creatinine 0.89 POC Creatinine Estimated GFR 103 POC Glucose Random Glucose 150 H Hemoglobin A1c Serum Osmolality 300 H Lactic Acid Calcium 5.8 L* Prot Corrected Calcium 7.2 L* Phosphorus Magnesium Total Bilirubin Direct Bilirubin Indirect Bilirubin AST ALT Alkaline Phosphatase Ammonia Total Creatine Kinase CK-MB (CK-2) CK-MB (CK-2) % Troponin I B-Natriuretic Peptide Total Protein 4.1 L Albumin Prealbumin Procalcitonin TSH Free T4 TSH 3rd Generation Urine Color Urine Clarity Urine Turbidity Urine pH Ur Specific [place] Urine Protein Urine Glucose (UA) Urine Ketones Urine Occult Blood Urine Nitrate Urine Nitrite Urine Bilirubin Urine Urobilinogen Ur Leukocyte Esterase Urine RBC Urine WBC Ur Squamous Epith Cells Ur Transition Epith Cell Amorphous Sediment Urine Bacteria Hyaline Casts Urine Mucus Urine Yeast (Budding) Micro UA Comment Urine Culture Comments Urine Osmolality Ur Random Sodium CSF Volume (1) CSF Supernat Color (1) CSF Gross Blood (1) CSF Volume (2) CSF Supernat Color (2) CSF Gross Blood (2) CSF Volume (3) CSF Supernat Color (3) CSF Volume (4) CSF Supernat Color (4) CSF WBC (4) CSF RBC (4) CSF Neutrophils CSF Lymphocytes CSF Monocytes CSF Glucose CSF Total Protein Nasal Screen MRSA (PCR) Bronchial Other Cells BAL WBC BAL RBC BAL Neutrophils BAL Lymphocytes BAL Eosinophils BAL Plasma Cells BAL Histiocytes BAL Diff Comment Lavage Fld Tot Volume Lavage Tot WBC Count Stl C.difficile Tox PCR St C. diff Tox Epid 027 Vancomycin Trough Valproic Acid Levetiracetam Ethyl Alcohol 01/13/17 01/13/17 01/13/17 14:07 18:15 18:15 WBC 11.0 RBC 2.91 L Hgb 8.9 L POC Hgb Hct 26.2 L POC Hct MCV 90.2 MCH 30.6 MCHC 33.9 RDW 14.1 Plt Count 132 L MPV 9.0 Neut % (Auto) 76.6 H Lymph % (Auto) 10.7 [place] % (Auto) 8.4 H Eos % (Auto) 3.9 Baso % (Auto) 0.4 Neut # (Auto) 8.4 H Lymph # (Auto) 1.2 [place] # (Auto) 0.9 Eos # (Auto) 0.4 Baso # (Auto) 0.0 CBC Comment DIFF FINAL WBC Differential Total Counted Neutrophils % (Manual) Band Neutrophils % Lymphocytes % Monocytes % Eosinophils % Basophils % Neutrophils # (Manual) Metamyelocytes Myelocytes Promyelocytes Nucleated RBCs Differential Comment Toxic Granulation Platelet Estimate Plt Morphology Comment RBC Morph Comment PT INR APTT Fibrinogen Puncture Site Patient Temperature HCO3 Base Excess O2 Saturation ABG pH ABG pCO2 ABG pO2 ABG O2 Content ABG Carboxyhemoglobin ABG Methemoglobin Hemoglobin O2 Delivery Device Liter Flow Vent Setting Inspired O2 POC Sodium Sodium 147 H POC Potassium Potassium POC Chloride Chloride Carbon Dioxide Anion Gap POC BUN BUN Creatinine POC Creatinine Estimated GFR POC Glucose Random Glucose Hemoglobin A1c Serum Osmolality 298 H Lactic Acid Calcium Prot Corrected Calcium Phosphorus Magnesium Total Bilirubin Direct Bilirubin Indirect Bilirubin AST ALT Alkaline Phosphatase Ammonia Total Creatine Kinase CK-MB (CK-2) CK-MB (CK-2) % Troponin I B-Natriuretic Peptide Total Protein Albumin Prealbumin Procalcitonin TSH Free T4 TSH 3rd Generation Urine Color Urine Clarity Urine Turbidity Urine pH Ur Specific [place] Urine Protein Urine Glucose (UA) Urine Ketones Urine Occult Blood Urine Nitrate Urine Nitrite Urine Bilirubin Urine Urobilinogen Ur Leukocyte Esterase Urine RBC Urine WBC Ur Squamous Epith Cells Ur Transition Epith Cell Amorphous Sediment Urine Bacteria Hyaline Casts Urine Mucus Urine Yeast (Budding) Micro UA Comment Urine Culture Comments Urine Osmolality Ur Random Sodium CSF Volume (1) CSF Supernat Color (1) CSF Gross Blood (1) CSF Volume (2) CSF Supernat Color (2) CSF Gross Blood (2) CSF Volume (3) CSF Supernat Color (3) CSF Volume (4) CSF Supernat Color (4) CSF WBC (4) CSF RBC (4) CSF Neutrophils CSF Lymphocytes CSF Monocytes CSF Glucose CSF Total Protein Nasal Screen MRSA (PCR) Bronchial Other Cells BAL WBC BAL RBC BAL Neutrophils BAL Lymphocytes BAL Eosinophils BAL Plasma Cells BAL Histiocytes BAL Diff Comment Lavage Fld Tot Volume Lavage Tot WBC Count Stl C.difficile Tox PCR St C. diff Tox Epid 027 Vancomycin Trough Valproic Acid Levetiracetam Ethyl Alcohol 01/13/17 01/13/17 01/14/17 18:35 21:57 00:19 WBC RBC Hgb POC Hgb Hct POC Hct MCV MCH MCHC RDW Plt Count MPV Neut % (Auto) Lymph % (Auto) [place] % (Auto) Eos % (Auto) Baso % (Auto) Neut # (Auto) Lymph # (Auto) [place] # (Auto) Eos # (Auto) Baso # (Auto) CBC Comment WBC Differential Total Counted Neutrophils % (Manual) Band Neutrophils % Lymphocytes % Monocytes % Eosinophils % Basophils % Neutrophils # (Manual) Metamyelocytes Myelocytes Promyelocytes Nucleated RBCs Differential Comment Toxic Granulation Platelet Estimate Plt Morphology Comment RBC Morph Comment PT INR APTT Fibrinogen Puncture Site ART LINE Patient Temperature 98.6 HCO3 19 L Base Excess -4.0 L O2 Saturation 97 ABG pH 7.44 H ABG pCO2 29 L ABG pO2 191 H ABG O2 Content 12.0 ABG Carboxyhemoglobin 0.0 ABG Methemoglobin 0.8 Hemoglobin 8.5 L O2 Delivery Device VENTILATOR Liter Flow Vent Setting PRVC/14/550/+5/1.10 Inspired O2 40 POC Sodium Sodium 148 H POC Potassium Potassium POC Chloride Chloride Carbon Dioxide Anion Gap POC BUN BUN Creatinine POC Creatinine Estimated GFR POC Glucose Random Glucose Hemoglobin A1c Serum Osmolality Lactic Acid Calcium Prot Corrected Calcium Phosphorus Magnesium Total Bilirubin Direct Bilirubin Indirect Bilirubin AST ALT Alkaline Phosphatase Ammonia Total Creatine Kinase CK-MB (CK-2) CK-MB (CK-2) % Troponin I B-Natriuretic Peptide Total Protein Albumin Prealbumin Procalcitonin TSH Free T4 TSH 3rd Generation Urine Color Urine Clarity Urine Turbidity Urine pH Ur Specific [place] Urine Protein Urine Glucose (UA) Urine Ketones Urine Occult Blood Urine Nitrate Urine Nitrite Urine Bilirubin Urine Urobilinogen Ur Leukocyte Esterase Urine RBC Urine WBC Ur Squamous Epith Cells Ur Transition Epith Cell Amorphous Sediment Urine Bacteria Hyaline Casts Urine Mucus Urine Yeast (Budding) Micro UA Comment Urine Culture Comments Urine Osmolality Ur Random Sodium CSF Volume (1) CSF Supernat Color (1) CSF Gross Blood (1) CSF Volume (2) CSF Supernat Color (2) CSF Gross Blood (2) CSF Volume (3) CSF Supernat Color (3) CSF Volume (4) CSF Supernat Color (4) CSF WBC (4) CSF RBC (4) CSF Neutrophils CSF Lymphocytes CSF Monocytes CSF Glucose CSF Total Protein Nasal Screen MRSA (PCR) MRSA NOT DETECTED Bronchial Other Cells BAL WBC BAL RBC BAL Neutrophils BAL Lymphocytes BAL Eosinophils BAL Plasma Cells BAL Histiocytes BAL Diff Comment Lavage Fld Tot Volume Lavage Tot WBC Count Stl C.difficile Tox PCR St C. diff Tox Epid 027 Vancomycin Trough Valproic Acid Levetiracetam Ethyl Alcohol 01/14/17 01/14/17 01/14/17 00:19 03:33 04:28 WBC RBC Hgb POC Hgb Hct POC Hct MCV MCH MCHC RDW Plt Count MPV Neut % (Auto) Lymph % (Auto) [place] % (Auto) Eos % (Auto) Baso % (Auto) Neut # (Auto) Lymph # (Auto) [place] # (Auto) Eos # (Auto) Baso # (Auto) CBC Comment WBC Differential Total Counted Neutrophils % (Manual) Band Neutrophils % Lymphocytes % Monocytes % Eosinophils % Basophils % Neutrophils # (Manual) Metamyelocytes Myelocytes Promyelocytes Nucleated RBCs Differential Comment Toxic Granulation Platelet Estimate Plt Morphology Comment RBC Morph Comment PT INR APTT Fibrinogen Puncture Site ART LINE Patient Temperature 98.6 HCO3 21 L Base Excess -3.2 L O2 Saturation 96 ABG pH 7.40 ABG pCO2 34 L ABG pO2 131 H ABG O2 Content 13.0 ABG Carboxyhemoglobin 0.0 ABG Methemoglobin 0.7 Hemoglobin 9.4 L O2 Delivery Device VENTILATOR Liter Flow Vent Setting COMMENT Inspired O2 40 POC Sodium Sodium POC Potassium Potassium POC Chloride Chloride Carbon Dioxide Anion Gap POC BUN BUN Creatinine POC Creatinine Estimated GFR POC Glucose Random Glucose Hemoglobin A1c Serum Osmolality 297 H 303 H Lactic Acid Calcium Prot Corrected Calcium Phosphorus Magnesium Total Bilirubin Direct Bilirubin Indirect Bilirubin AST ALT Alkaline Phosphatase Ammonia Total Creatine Kinase CK-MB (CK-2) CK-MB (CK-2) % Troponin I B-Natriuretic Peptide Total Protein Albumin Prealbumin Procalcitonin TSH Free T4 TSH 3rd Generation Urine Color Urine Clarity Urine Turbidity Urine pH Ur Specific [place] Urine Protein Urine Glucose (UA) Urine Ketones Urine Occult Blood Urine Nitrate Urine Nitrite Urine Bilirubin Urine Urobilinogen Ur Leukocyte Esterase Urine RBC Urine WBC Ur Squamous Epith Cells Ur Transition Epith Cell Amorphous Sediment Urine Bacteria Hyaline Casts Urine Mucus Urine Yeast (Budding) Micro UA Comment Urine Culture Comments Urine Osmolality Ur Random Sodium CSF Volume (1) CSF Supernat Color (1) CSF Gross Blood (1) CSF Volume (2) CSF Supernat Color (2) CSF Gross Blood (2) CSF Volume (3) CSF Supernat Color (3) CSF Volume (4) CSF Supernat Color (4) CSF WBC (4) CSF RBC (4) CSF Neutrophils CSF Lymphocytes CSF Monocytes CSF Glucose CSF Total Protein Nasal Screen MRSA (PCR) Bronchial Other Cells BAL WBC BAL RBC BAL Neutrophils BAL Lymphocytes BAL Eosinophils BAL Plasma Cells BAL Histiocytes BAL Diff Comment Lavage Fld Tot Volume Lavage Tot WBC Count Stl C.difficile Tox PCR St C. diff Tox Epid 027 Vancomycin Trough Valproic Acid Levetiracetam Ethyl Alcohol 01/14/17 01/14/17 01/14/17 04:28 04:28 08:50 WBC 10.4 RBC 2.77 L Hgb 8.6 L POC Hgb Hct 25.1 L POC Hct MCV 90.7 MCH 31.1 MCHC 34.3 RDW 14.2 Plt Count 130 L MPV 9.7 Neut % (Auto) 77.5 H Lymph % (Auto) 10.3 [place] % (Auto) 7.8 Eos % (Auto) 4.1 H Baso % (Auto) 0.3 Neut # (Auto) 8.0 H Lymph # (Auto) 1.1 [place] # (Auto) 0.8 Eos # (Auto) 0.4 Baso # (Auto) 0.0 CBC Comment DIFF FINAL WBC Differential Total Counted Neutrophils % (Manual) Band Neutrophils % Lymphocytes % Monocytes % Eosinophils % Basophils % Neutrophils # (Manual) Metamyelocytes Myelocytes Promyelocytes Nucleated RBCs Differential Comment Toxic Granulation Platelet Estimate Plt Morphology Comment RBC Morph Comment PT 10.0 INR 0.9 APTT 40.8 H Fibrinogen 551 H Puncture Site Patient Temperature HCO3 Base Excess O2 Saturation ABG pH ABG pCO2 ABG pO2 ABG O2 Content ABG Carboxyhemoglobin ABG Methemoglobin Hemoglobin O2 Delivery Device Liter Flow Vent Setting Inspired O2 POC Sodium Sodium 150 H POC Potassium Potassium 4.1 POC Chloride Chloride 122 H Carbon Dioxide 22.1 Anion Gap 6 POC BUN BUN 7 Creatinine 0.92 POC Creatinine Estimated GFR 99 POC Glucose Random Glucose 131 H Hemoglobin A1c Serum Osmolality Lactic Acid Calcium 7.1 L* D Prot Corrected Calcium 8.4 L Phosphorus Magnesium Total Bilirubin 0.4 Direct Bilirubin Indirect Bilirubin AST 72 H ALT 19 Alkaline Phosphatase 64 Ammonia Total Creatine Kinase CK-MB (CK-2) CK-MB (CK-2) % Troponin I B-Natriuretic Peptide Total Protein 4.7 L D Albumin 1.9 L Prealbumin Procalcitonin TSH Free T4 TSH 3rd Generation Urine Color Urine Clarity Urine Turbidity Urine pH Ur Specific [place] Urine Protein Urine Glucose (UA) Urine Ketones Urine Occult Blood Urine Nitrate Urine Nitrite Urine Bilirubin Urine Urobilinogen Ur Leukocyte Esterase Urine RBC Urine WBC Ur Squamous Epith Cells Ur Transition Epith Cell Amorphous Sediment Urine Bacteria Hyaline Casts Urine Mucus Urine Yeast (Budding) Micro UA Comment Urine Culture Comments Urine Osmolality Ur Random Sodium CSF Volume (1) CSF Supernat Color (1) CSF Gross Blood (1) CSF Volume (2) CSF Supernat Color (2) CSF Gross Blood (2) CSF Volume (3) CSF Supernat Color (3) CSF Volume (4) CSF Supernat Color (4) CSF WBC (4) CSF RBC (4) CSF Neutrophils CSF Lymphocytes CSF Monocytes CSF Glucose CSF Total Protein Nasal Screen MRSA (PCR) Bronchial Other Cells BAL WBC BAL RBC BAL Neutrophils BAL Lymphocytes BAL Eosinophils BAL Plasma Cells BAL Histiocytes BAL Diff Comment Lavage Fld Tot Volume Lavage Tot WBC Count Stl C.difficile Tox PCR St C. diff Tox Epid 027 Vancomycin Trough Valproic Acid Levetiracetam Ethyl Alcohol 01/14/17 01/14/17 01/14/17 08:52 08:52 12:22 WBC RBC Hgb POC Hgb Hct POC Hct MCV MCH MCHC RDW Plt Count MPV Neut % (Auto) Lymph % (Auto) [place] % (Auto) Eos % (Auto) Baso % (Auto) Neut # (Auto) Lymph # (Auto) [place] # (Auto) Eos # (Auto) Baso # (Auto) CBC Comment WBC Differential Total Counted Neutrophils % (Manual) Band Neutrophils % Lymphocytes % Monocytes % Eosinophils % Basophils % Neutrophils # (Manual) Metamyelocytes Myelocytes Promyelocytes Nucleated RBCs Differential Comment Toxic Granulation Platelet Estimate Plt Morphology Comment RBC Morph Comment PT INR APTT Fibrinogen Puncture Site Patient Temperature HCO3 Base Excess O2 Saturation ABG pH ABG pCO2 ABG pO2 ABG O2 Content ABG Carboxyhemoglobin ABG Methemoglobin Hemoglobin O2 Delivery Device Liter Flow Vent Setting Inspired O2 POC Sodium Sodium POC Potassium Potassium POC Chloride Chloride Carbon Dioxide Anion Gap POC BUN BUN Creatinine POC Creatinine Estimated GFR POC Glucose Random Glucose Hemoglobin A1c Serum Osmolality 315 H Lactic Acid Calcium Prot Corrected Calcium Phosphorus Magnesium Total Bilirubin Direct Bilirubin Indirect Bilirubin AST ALT Alkaline Phosphatase Ammonia Total Creatine Kinase CK-MB (CK-2) CK-MB (CK-2) % Troponin I B-Natriuretic Peptide Total Protein Albumin Prealbumin Procalcitonin TSH Free T4 TSH 3rd Generation Urine Color Urine Clarity Urine Turbidity Urine pH Ur Specific [place] 1.008 Urine Protein Urine Glucose (UA) Urine Ketones Urine Occult Blood Urine Nitrate Urine Nitrite Urine Bilirubin Urine Urobilinogen Ur Leukocyte Esterase Urine RBC Urine WBC Ur Squamous Epith Cells Ur Transition Epith Cell Amorphous Sediment Urine Bacteria Hyaline Casts Urine Mucus Urine Yeast (Budding) Micro UA Comment Urine Culture Comments Urine Osmolality 361 Ur Random Sodium 132 CSF Volume (1) CSF Supernat Color (1) CSF Gross Blood (1) CSF Volume (2) CSF Supernat Color (2) CSF Gross Blood (2) CSF Volume (3) CSF Supernat Color (3) CSF Volume (4) CSF Supernat Color (4) CSF WBC (4) CSF RBC (4) CSF Neutrophils CSF Lymphocytes CSF Monocytes CSF Glucose CSF Total Protein Nasal Screen MRSA (PCR) Bronchial Other Cells BAL WBC BAL RBC BAL Neutrophils BAL Lymphocytes BAL Eosinophils BAL Plasma Cells BAL Histiocytes BAL Diff Comment Lavage Fld Tot Volume Lavage Tot WBC Count Stl C.difficile Tox PCR St C. diff Tox Epid 027 Vancomycin Trough Valproic Acid Levetiracetam Ethyl Alcohol 01/14/17 01/14/17 01/14/17 12:22 18:07 18:07 WBC RBC Hgb POC Hgb Hct POC Hct MCV MCH MCHC RDW Plt Count MPV Neut % (Auto) Lymph % (Auto) [place] % (Auto) Eos % (Auto) Baso % (Auto) Neut # (Auto) Lymph # (Auto) [place] # (Auto) Eos # (Auto) Baso # (Auto) CBC Comment WBC Differential Total Counted Neutrophils % (Manual) Band Neutrophils % Lymphocytes % Monocytes % Eosinophils % Basophils % Neutrophils # (Manual) Metamyelocytes Myelocytes Promyelocytes Nucleated RBCs Differential Comment Toxic Granulation Platelet Estimate Plt Morphology Comment RBC Morph Comment PT INR APTT Fibrinogen Puncture Site Patient Temperature HCO3 Base Excess O2 Saturation ABG pH ABG pCO2 ABG pO2 ABG O2 Content ABG Carboxyhemoglobin ABG Methemoglobin Hemoglobin O2 Delivery Device Liter Flow Vent Setting Inspired O2 POC Sodium Sodium 153 H 155 H POC Potassium Potassium 3.9 POC Chloride Chloride 125 H Carbon Dioxide 23.7 Anion Gap 4 L POC BUN BUN 9 Creatinine 1.00 POC Creatinine Estimated GFR 90 POC Glucose Random Glucose 122 H Hemoglobin A1c Serum Osmolality 319 H Lactic Acid Calcium 7.8 L Prot Corrected Calcium Phosphorus Magnesium Total Bilirubin Direct Bilirubin Indirect Bilirubin AST ALT Alkaline Phosphatase Ammonia Total Creatine Kinase CK-MB (CK-2) CK-MB (CK-2) % Troponin I B-Natriuretic Peptide Total Protein Albumin Prealbumin Procalcitonin TSH Free T4 TSH 3rd Generation Urine Color Urine Clarity Urine Turbidity Urine pH Ur Specific [place] Urine Protein Urine Glucose (UA) Urine Ketones Urine Occult Blood Urine Nitrate Urine Nitrite Urine Bilirubin Urine Urobilinogen Ur Leukocyte Esterase Urine RBC Urine WBC Ur Squamous Epith Cells Ur Transition Epith Cell Amorphous Sediment Urine Bacteria Hyaline Casts Urine Mucus Urine Yeast (Budding) Micro UA Comment Urine Culture Comments Urine Osmolality Ur Random Sodium CSF Volume (1) CSF Supernat Color (1) CSF Gross Blood (1) CSF Volume (2) CSF Supernat Color (2) CSF Gross Blood (2) CSF Volume (3) CSF Supernat Color (3) CSF Volume (4) CSF Supernat Color (4) CSF WBC (4) CSF RBC (4) CSF Neutrophils CSF Lymphocytes CSF Monocytes CSF Glucose CSF Total Protein Nasal Screen MRSA (PCR) Bronchial Other Cells BAL WBC BAL RBC BAL Neutrophils BAL Lymphocytes BAL Eosinophils BAL Plasma Cells BAL Histiocytes BAL Diff Comment Lavage Fld Tot Volume Lavage Tot WBC Count Stl C.difficile Tox PCR St C. diff Tox Epid 027 Vancomycin Trough Valproic Acid Levetiracetam Ethyl Alcohol 01/15/17 01/15/17 01/15/17 00:00 00:00 04:10 WBC RBC Hgb POC Hgb Hct POC Hct MCV MCH MCHC RDW Plt Count MPV Neut % (Auto) Lymph % (Auto) [place] % (Auto) Eos % (Auto) Baso % (Auto) Neut # (Auto) Lymph # (Auto) [place] # (Auto) Eos # (Auto) Baso # (Auto) CBC Comment WBC Differential Total Counted Neutrophils % (Manual) Band Neutrophils % Lymphocytes % Monocytes % Eosinophils % Basophils % Neutrophils # (Manual) Metamyelocytes Myelocytes Promyelocytes Nucleated RBCs Differential Comment Toxic Granulation Platelet Estimate Plt Morphology Comment RBC Morph Comment PT INR APTT Fibrinogen Puncture Site Patient Temperature HCO3 Base Excess O2 Saturation ABG pH ABG pCO2 ABG pO2 ABG O2 Content ABG Carboxyhemoglobin ABG Methemoglobin Hemoglobin O2 Delivery Device Liter Flow Vent Setting Inspired O2 POC Sodium Sodium 157 H* POC Potassium Potassium POC Chloride Chloride Carbon Dioxide Anion Gap POC BUN BUN Creatinine POC Creatinine Estimated GFR POC Glucose Random Glucose Hemoglobin A1c Serum Osmolality 321 H 326 H Lactic Acid Calcium Prot Corrected Calcium Phosphorus Magnesium Total Bilirubin Direct Bilirubin Indirect Bilirubin AST ALT Alkaline Phosphatase Ammonia Total Creatine Kinase CK-MB (CK-2) CK-MB (CK-2) % Troponin I B-Natriuretic Peptide Total Protein Albumin Prealbumin Procalcitonin TSH Free T4 TSH 3rd Generation Urine Color Urine Clarity Urine Turbidity Urine pH Ur Specific [place] Urine Protein Urine Glucose (UA) Urine Ketones Urine Occult Blood Urine Nitrate Urine Nitrite Urine Bilirubin Urine Urobilinogen Ur Leukocyte Esterase Urine RBC Urine WBC Ur Squamous Epith Cells Ur Transition Epith Cell Amorphous Sediment Urine Bacteria Hyaline Casts Urine Mucus Urine Yeast (Budding) Micro UA Comment Urine Culture Comments Urine Osmolality Ur Random Sodium CSF Volume (1) CSF Supernat Color (1) CSF Gross Blood (1) CSF Volume (2) CSF Supernat Color (2) CSF Gross Blood (2) CSF Volume (3) CSF Supernat Color (3) CSF Volume (4) CSF Supernat Color (4) CSF WBC (4) CSF RBC (4) CSF Neutrophils CSF Lymphocytes CSF Monocytes CSF Glucose CSF Total Protein Nasal Screen MRSA (PCR) Bronchial Other Cells BAL WBC BAL RBC BAL Neutrophils BAL Lymphocytes BAL Eosinophils BAL Plasma Cells BAL Histiocytes BAL Diff Comment Lavage Fld Tot Volume Lavage Tot WBC Count Stl C.difficile Tox PCR St C. diff Tox Epid 027 Vancomycin Trough Valproic Acid Levetiracetam Ethyl Alcohol 01/15/17 01/15/17 01/15/17 04:10 04:10 05:43 WBC 11.0 RBC 2.58 L Hgb 8.0 L POC Hgb Hct 23.1 L POC Hct MCV 89.5 MCH 30.8 MCHC 34.4 RDW 14.0 Plt Count 128 L MPV 9.4 Neut % (Auto) 87.2 H Lymph % (Auto) 5.7 L [place] % (Auto) 6.2 Eos % (Auto) 0.8 Baso % (Auto) 0.1 Neut # (Auto) 9.6 H Lymph # (Auto) 0.6 L [place] # (Auto) 0.7 Eos # (Auto) 0.1 Baso # (Auto) 0.0 CBC Comment DIFF FINAL WBC Differential Total Counted Neutrophils % (Manual) Band Neutrophils % Lymphocytes % Monocytes % Eosinophils % Basophils % Neutrophils # (Manual) Metamyelocytes Myelocytes Promyelocytes Nucleated RBCs Differential Comment Toxic Granulation Platelet Estimate Plt Morphology Comment RBC Morph Comment PT INR APTT Fibrinogen Puncture Site RT BRACHIAL Patient Temperature 98.6 HCO3 23 Base Excess -0.4 O2 Saturation 91 ABG pH 7.45 H ABG pCO2 34 L ABG pO2 65 ABG O2 Content 10.8 L ABG Carboxyhemoglobin 1.1 ABG Methemoglobin 1.1 Hemoglobin 8.4 L O2 Delivery Device VENTILATOR Liter Flow Vent Setting SEE COMMENT Inspired O2 30 POC Sodium Sodium 158 H* POC Potassium Potassium 3.7 POC Chloride Chloride 129 H Carbon Dioxide 23.8 Anion Gap 5 POC BUN BUN 11 Creatinine 0.98 POC Creatinine Estimated GFR 92 POC Glucose Random Glucose 138 H Hemoglobin A1c Serum Osmolality Lactic Acid Calcium 8.2 L Prot Corrected Calcium Phosphorus Magnesium Total Bilirubin 0.5 Direct Bilirubin Indirect Bilirubin AST 49 H ALT 20 Alkaline Phosphatase 64 Ammonia Total Creatine Kinase CK-MB (CK-2) CK-MB (CK-2) % Troponin I B-Natriuretic Peptide Total Protein 5.3 L D Albumin 2.0 L Prealbumin Procalcitonin TSH Free T4 TSH 3rd Generation Urine Color Urine Clarity Urine Turbidity Urine pH Ur Specific [place] Urine Protein Urine Glucose (UA) Urine Ketones Urine Occult Blood Urine Nitrate Urine Nitrite Urine Bilirubin Urine Urobilinogen Ur Leukocyte Esterase Urine RBC Urine WBC Ur Squamous Epith Cells Ur Transition Epith Cell Amorphous Sediment Urine Bacteria Hyaline Casts Urine Mucus Urine Yeast (Budding) Micro UA Comment Urine Culture Comments Urine Osmolality Ur Random Sodium CSF Volume (1) CSF Supernat Color (1) CSF Gross Blood (1) CSF Volume (2) CSF Supernat Color (2) CSF Gross Blood (2) CSF Volume (3) CSF Supernat Color (3) CSF Volume (4) CSF Supernat Color (4) CSF WBC (4) CSF RBC (4) CSF Neutrophils CSF Lymphocytes CSF Monocytes CSF Glucose CSF Total Protein Nasal Screen MRSA (PCR) Bronchial Other Cells BAL WBC BAL RBC BAL Neutrophils BAL Lymphocytes BAL Eosinophils BAL Plasma Cells BAL Histiocytes BAL Diff Comment Lavage Fld Tot Volume Lavage Tot WBC Count Stl C.difficile Tox PCR St C. diff Tox Epid 027 Vancomycin Trough Valproic Acid Levetiracetam Ethyl Alcohol 01/15/17 01/15/17 01/16/17 17:09 17:09 00:20 WBC RBC Hgb POC Hgb Hct POC Hct MCV MCH MCHC RDW Plt Count MPV Neut % (Auto) Lymph % (Auto) [place] % (Auto) Eos % (Auto) Baso % (Auto) Neut # (Auto) Lymph # (Auto) [place] # (Auto) Eos # (Auto) Baso # (Auto) CBC Comment WBC Differential Total Counted Neutrophils % (Manual) Band Neutrophils % Lymphocytes % Monocytes % Eosinophils % Basophils % Neutrophils # (Manual) Metamyelocytes Myelocytes Promyelocytes Nucleated RBCs Differential Comment Toxic Granulation Platelet Estimate Plt Morphology Comment RBC Morph Comment PT INR APTT Fibrinogen Puncture Site Patient Temperature HCO3 Base Excess O2 Saturation ABG pH ABG pCO2 ABG pO2 ABG O2 Content ABG Carboxyhemoglobin ABG Methemoglobin Hemoglobin O2 Delivery Device Liter Flow Vent Setting Inspired O2 POC Sodium Sodium 158 H* 158 H* POC Potassium Potassium POC Chloride Chloride Carbon Dioxide Anion Gap POC BUN BUN Creatinine POC Creatinine Estimated GFR POC Glucose Random Glucose Hemoglobin A1c Serum Osmolality 330 H Lactic Acid Calcium Prot Corrected Calcium Phosphorus Magnesium Total Bilirubin Direct Bilirubin Indirect Bilirubin AST ALT Alkaline Phosphatase Ammonia Total Creatine Kinase CK-MB (CK-2) CK-MB (CK-2) % Troponin I B-Natriuretic Peptide Total Protein Albumin Prealbumin Procalcitonin TSH Free T4 TSH 3rd Generation Urine Color Urine Clarity Urine Turbidity Urine pH Ur Specific [place] Urine Protein Urine Glucose (UA) Urine Ketones Urine Occult Blood Urine Nitrate Urine Nitrite Urine Bilirubin Urine Urobilinogen Ur Leukocyte Esterase Urine RBC Urine WBC Ur Squamous Epith Cells Ur Transition Epith Cell Amorphous Sediment Urine Bacteria Hyaline Casts Urine Mucus Urine Yeast (Budding) Micro UA Comment Urine Culture Comments Urine Osmolality Ur Random Sodium CSF Volume (1) CSF Supernat Color (1) CSF Gross Blood (1) CSF Volume (2) CSF Supernat Color (2) CSF Gross Blood (2) CSF Volume (3) CSF Supernat Color (3) CSF Volume (4) CSF Supernat Color (4) CSF WBC (4) CSF RBC (4) CSF Neutrophils CSF Lymphocytes CSF Monocytes CSF Glucose CSF Total Protein Nasal Screen MRSA (PCR) Bronchial Other Cells BAL WBC BAL RBC BAL Neutrophils BAL Lymphocytes BAL Eosinophils BAL Plasma Cells BAL Histiocytes BAL Diff Comment Lavage Fld Tot Volume Lavage Tot WBC Count Stl C.difficile Tox PCR St C. diff Tox Epid 027 Vancomycin Trough Valproic Acid Levetiracetam Ethyl Alcohol 01/16/17 01/16/17 01/16/17 00:20 04:38 06:00 WBC RBC Hgb POC Hgb Hct POC Hct MCV MCH MCHC RDW Plt Count MPV Neut % (Auto) Lymph % (Auto) [place] % (Auto) Eos % (Auto) Baso % (Auto) Neut # (Auto) Lymph # (Auto) [place] # (Auto) Eos # (Auto) Baso # (Auto) CBC Comment WBC Differential Total Counted Neutrophils % (Manual) Band Neutrophils % Lymphocytes % Monocytes % Eosinophils % Basophils % Neutrophils # (Manual) Metamyelocytes Myelocytes Promyelocytes Nucleated RBCs Differential Comment Toxic Granulation Platelet Estimate Plt Morphology Comment RBC Morph Comment PT INR APTT Fibrinogen Puncture Site RT BRACHIAL Patient Temperature 98.6 HCO3 26 Base Excess 1.7 O2 Saturation 87 L* ABG pH 7.38 ABG pCO2 46 H ABG pO2 57 L* ABG O2 Content 10.2 L ABG Carboxyhemoglobin 1.3 ABG Methemoglobin 0.9 Hemoglobin 8.3 L O2 Delivery Device VENTILATOR Liter Flow Vent Setting SEE COMMENT Inspired O2 40 POC Sodium Sodium POC Potassium Potassium POC Chloride Chloride Carbon Dioxide Anion Gap POC BUN BUN Creatinine POC Creatinine Estimated GFR POC Glucose Random Glucose Hemoglobin A1c Serum Osmolality 327 H 331 H Lactic Acid Calcium Prot Corrected Calcium Phosphorus Magnesium Total Bilirubin Direct Bilirubin Indirect Bilirubin AST ALT Alkaline Phosphatase Ammonia Total Creatine Kinase CK-MB (CK-2) CK-MB (CK-2) % Troponin I B-Natriuretic Peptide Total Protein Albumin Prealbumin Procalcitonin TSH Free T4 TSH 3rd Generation Urine Color Urine Clarity Urine Turbidity Urine pH Ur Specific [place] Urine Protein Urine Glucose (UA) Urine Ketones Urine Occult Blood Urine Nitrate Urine Nitrite Urine Bilirubin Urine Urobilinogen Ur Leukocyte Esterase Urine RBC Urine WBC Ur Squamous Epith Cells Ur Transition Epith Cell Amorphous Sediment Urine Bacteria Hyaline Casts Urine Mucus Urine Yeast (Budding) Micro UA Comment Urine Culture Comments Urine Osmolality Ur Random Sodium CSF Volume (1) CSF Supernat Color (1) CSF Gross Blood (1) CSF Volume (2) CSF Supernat Color (2) CSF Gross Blood (2) CSF Volume (3) CSF Supernat Color (3) CSF Volume (4) CSF Supernat Color (4) CSF WBC (4) CSF RBC (4) CSF Neutrophils CSF Lymphocytes CSF Monocytes CSF Glucose CSF Total Protein Nasal Screen MRSA (PCR) Bronchial Other Cells BAL WBC BAL RBC BAL Neutrophils BAL Lymphocytes BAL Eosinophils BAL Plasma Cells BAL Histiocytes BAL Diff Comment Lavage Fld Tot Volume Lavage Tot WBC Count Stl C.difficile Tox PCR St C. diff Tox Epid 027 Vancomycin Trough Valproic Acid Levetiracetam Ethyl Alcohol 01/16/17 01/16/17 01/16/17 06:00 06:00 18:30 WBC 17.3 H RBC 2.60 L Hgb 7.7 L POC Hgb Hct 23.7 L POC Hct MCV 91.5 MCH 29.5 MCHC 32.2 RDW 14.2 Plt Count 150 MPV 9.6 Neut % (Auto) 89.0 H Lymph % (Auto) 3.5 L [place] % (Auto) 7.0 Eos % (Auto) 0.2 Baso % (Auto) 0.3 Neut # (Auto) 15.4 H Lymph # (Auto) 0.6 L [place] # (Auto) 1.2 H Eos # (Auto) 0.0 Baso # (Auto) 0.0 CBC Comment AUTO DIFF WBC Differential Total Counted 100 Neutrophils % (Manual) 52 Band Neutrophils % 39 H Lymphocytes % 4 L Monocytes % 1 Eosinophils % Basophils % Neutrophils # (Manual) 16.4 H Metamyelocytes 4 H Myelocytes Promyelocytes Nucleated RBCs Differential Comment FINAL DIFF MANUAL Toxic Granulation Platelet Estimate NORMAL Plt Morphology Comment NORMAL RBC Morph Comment PT INR APTT Fibrinogen Puncture Site Patient Temperature HCO3 Base Excess O2 Saturation ABG pH ABG pCO2 ABG pO2 ABG O2 Content ABG Carboxyhemoglobin ABG Methemoglobin Hemoglobin O2 Delivery Device Liter Flow Vent Setting Inspired O2 POC Sodium Sodium 155 H 155 H POC Potassium Potassium 3.9 POC Chloride Chloride 121 H D Carbon Dioxide 26.6 Anion Gap 7 POC BUN BUN 16 Creatinine 0.86 POC Creatinine Estimated GFR 107 POC Glucose Random Glucose 135 H Hemoglobin A1c Serum Osmolality Lactic Acid Calcium 9.0 D Prot Corrected Calcium Phosphorus 1.5 L Magnesium 2.2 Total Bilirubin 0.4 Direct Bilirubin Indirect Bilirubin AST 38 H ALT 15 Alkaline Phosphatase 77 Ammonia Total Creatine Kinase CK-MB (CK-2) CK-MB (CK-2) % Troponin I B-Natriuretic Peptide Total Protein 5.8 L Albumin 2.0 L Prealbumin Procalcitonin TSH Free T4 TSH 3rd Generation Urine Color Urine Clarity Urine Turbidity Urine pH Ur Specific [place] Urine Protein Urine Glucose (UA) Urine Ketones Urine Occult Blood Urine Nitrate Urine Nitrite Urine Bilirubin Urine Urobilinogen Ur Leukocyte Esterase Urine RBC Urine WBC Ur Squamous Epith Cells Ur Transition Epith Cell Amorphous Sediment Urine Bacteria Hyaline Casts Urine Mucus Urine Yeast (Budding) Micro UA Comment Urine Culture Comments Urine Osmolality Ur Random Sodium CSF Volume (1) CSF Supernat Color (1) CSF Gross Blood (1) CSF Volume (2) CSF Supernat Color (2) CSF Gross Blood (2) CSF Volume (3) CSF Supernat Color (3) CSF Volume (4) CSF Supernat Color (4) CSF WBC (4) CSF RBC (4) CSF Neutrophils CSF Lymphocytes CSF Monocytes CSF Glucose CSF Total Protein Nasal Screen MRSA (PCR) Bronchial Other Cells BAL WBC BAL RBC BAL Neutrophils BAL Lymphocytes BAL Eosinophils BAL Plasma Cells BAL Histiocytes BAL Diff Comment Lavage Fld Tot Volume Lavage Tot WBC Count Stl C.difficile Tox PCR St C. diff Tox Epid 027 Vancomycin Trough Valproic Acid Levetiracetam Ethyl Alcohol 01/16/17 01/16/17 01/17/17 18:30 20:00 02:00 WBC RBC Hgb POC Hgb Hct POC Hct MCV MCH MCHC RDW Plt Count MPV Neut % (Auto) Lymph % (Auto) [place] % (Auto) Eos % (Auto) Baso % (Auto) Neut # (Auto) Lymph # (Auto) [place] # (Auto) Eos # (Auto) Baso # (Auto) CBC Comment WBC Differential Total Counted Neutrophils % (Manual) Band Neutrophils % Lymphocytes % Monocytes % Eosinophils % Basophils % Neutrophils # (Manual) Metamyelocytes Myelocytes Promyelocytes Nucleated RBCs Differential Comment Toxic Granulation Platelet Estimate Plt Morphology Comment RBC Morph Comment PT INR APTT Fibrinogen Puncture Site Patient Temperature HCO3 Base Excess O2 Saturation ABG pH ABG pCO2 ABG pO2 ABG O2 Content ABG Carboxyhemoglobin ABG Methemoglobin Hemoglobin O2 Delivery Device Liter Flow Vent Setting Inspired O2 POC Sodium Sodium 156 H* POC Potassium Potassium POC Chloride Chloride Carbon Dioxide Anion Gap POC BUN BUN Creatinine POC Creatinine Estimated GFR POC Glucose Random Glucose Hemoglobin A1c Serum Osmolality 325 H Lactic Acid Calcium Prot Corrected Calcium Phosphorus Magnesium Total Bilirubin Direct Bilirubin Indirect Bilirubin AST ALT Alkaline Phosphatase Ammonia Total Creatine Kinase CK-MB (CK-2) CK-MB (CK-2) % Troponin I B-Natriuretic Peptide Total Protein Albumin Prealbumin Procalcitonin TSH Free T4 TSH 3rd Generation Urine Color YELLOW Urine Clarity Urine Turbidity CLEAR Urine pH 7.0 Ur Specific [place] 1.019 Urine Protein 30 H Urine Glucose (UA) NEG Urine Ketones NEG Urine Occult Blood LARGE H Urine Nitrate Urine Nitrite NEG Urine Bilirubin NEG Urine Urobilinogen LESS THAN 2.0 Ur Leukocyte Esterase NEG Urine RBC LESS THAN 1 Urine WBC 2 Ur Squamous Epith Cells <1 Ur Transition Epith Cell Amorphous Sediment Urine Bacteria Hyaline Casts Urine Mucus FEW H Urine Yeast (Budding) Micro UA Comment CATH-CULT NOT IND Urine Culture Comments Urine Osmolality Ur Random Sodium CSF Volume (1) CSF Supernat Color (1) CSF Gross Blood (1) CSF Volume (2) CSF Supernat Color (2) CSF Gross Blood (2) CSF Volume (3) CSF Supernat Color (3) CSF Volume (4) CSF Supernat Color (4) CSF WBC (4) CSF RBC (4) CSF Neutrophils CSF Lymphocytes CSF Monocytes CSF Glucose CSF Total Protein Nasal Screen MRSA (PCR) Bronchial Other Cells BAL WBC BAL RBC BAL Neutrophils BAL Lymphocytes BAL Eosinophils BAL Plasma Cells BAL Histiocytes BAL Diff Comment Lavage Fld Tot Volume Lavage Tot WBC Count Stl C.difficile Tox PCR St C. diff Tox Epid 027 Vancomycin Trough Valproic Acid Levetiracetam Ethyl Alcohol 01/17/17 01/17/17 01/17/17 02:00 04:05 05:00 WBC RBC Hgb POC Hgb Hct POC Hct MCV MCH MCHC RDW Plt Count MPV Neut % (Auto) Lymph % (Auto) [place] % (Auto) Eos % (Auto) Baso % (Auto) Neut # (Auto) Lymph # (Auto) [place] # (Auto) Eos # (Auto) Baso # (Auto) CBC Comment WBC Differential Total Counted Neutrophils % (Manual) Band Neutrophils % Lymphocytes % Monocytes % Eosinophils % Basophils % Neutrophils # (Manual) Metamyelocytes Myelocytes Promyelocytes Nucleated RBCs Differential Comment Toxic Granulation Platelet Estimate Plt Morphology Comment RBC Morph Comment PT INR APTT Fibrinogen Puncture Site RT RADIAL Patient Temperature 98.6 HCO3 28 H Base Excess 4.0 H O2 Saturation 93 ABG pH 7.42 ABG pCO2 45 H ABG pO2 74 ABG O2 Content 13.0 ABG Carboxyhemoglobin 1.2 ABG Methemoglobin 0.9 Hemoglobin 9.9 L O2 Delivery Device VENTILATOR Liter Flow Vent Setting Inspired O2 40 POC Sodium Sodium 155 H POC Potassium Potassium 3.9 POC Chloride Chloride 120 H Carbon Dioxide 29.5 Anion Gap 6 POC BUN BUN 17 Creatinine 0.97 POC Creatinine Estimated GFR 93 POC Glucose Random Glucose 145 H Hemoglobin A1c Serum Osmolality 326 H Lactic Acid Calcium 5.5 L* D Prot Corrected Calcium 5.8 L* Phosphorus Magnesium Total Bilirubin Direct Bilirubin Indirect Bilirubin AST ALT Alkaline Phosphatase Ammonia Total Creatine Kinase CK-MB (CK-2) CK-MB (CK-2) % Troponin I B-Natriuretic Peptide Total Protein 6.4 D Albumin Prealbumin Procalcitonin TSH Free T4 TSH 3rd Generation Urine Color Urine Clarity Urine Turbidity Urine pH Ur Specific [place] Urine Protein Urine Glucose (UA) Urine Ketones Urine Occult Blood Urine Nitrate Urine Nitrite Urine Bilirubin Urine Urobilinogen Ur Leukocyte Esterase Urine RBC Urine WBC Ur Squamous Epith Cells Ur Transition Epith Cell Amorphous Sediment Urine Bacteria Hyaline Casts Urine Mucus Urine Yeast (Budding) Micro UA Comment Urine Culture Comments Urine Osmolality Ur Random Sodium CSF Volume (1) CSF Supernat Color (1) CSF Gross Blood (1) CSF Volume (2) CSF Supernat Color (2) CSF Gross Blood (2) CSF Volume (3) CSF Supernat Color (3) CSF Volume (4) CSF Supernat Color (4) CSF WBC (4) CSF RBC (4) CSF Neutrophils CSF Lymphocytes CSF Monocytes CSF Glucose CSF Total Protein Nasal Screen MRSA (PCR) Bronchial Other Cells BAL WBC BAL RBC BAL Neutrophils BAL Lymphocytes BAL Eosinophils BAL Plasma Cells BAL Histiocytes BAL Diff Comment Lavage Fld Tot Volume Lavage Tot WBC Count Stl C.difficile Tox PCR St C. diff Tox Epid 027 Vancomycin Trough Valproic Acid Levetiracetam Ethyl Alcohol 01/17/17 01/17/17 01/17/17 05:00 05:00 14:26 WBC 18.2 H RBC 2.63 L Hgb 7.9 L POC Hgb Hct 24.0 L POC Hct MCV 91.2 MCH 30.1 MCHC 33.0 RDW 13.9 Plt Count 184 MPV 9.4 Neut % (Auto) 88.1 H Lymph % (Auto) 4.2 L [place] % (Auto) 6.5 Eos % (Auto) 0.9 Baso % (Auto) 0.3 Neut # (Auto) 16.0 H Lymph # (Auto) 0.8 L [place] # (Auto) 1.2 H Eos # (Auto) 0.2 Baso # (Auto) 0.1 CBC Comment AUTO DIFF WBC Differential Total Counted 100 Neutrophils % (Manual) 61 Band Neutrophils % 26 H Lymphocytes % 3 L Monocytes % 4 Eosinophils % Basophils % Neutrophils # (Manual) 16.9 H Metamyelocytes 5 H Myelocytes 1 H Promyelocytes Nucleated RBCs Differential Comment FINAL DIFF MANUAL Toxic Granulation Platelet Estimate NORMAL Plt Morphology Comment NORMAL RBC Morph Comment PT INR APTT Fibrinogen Puncture Site RT RADIAL Patient Temperature 98.6 HCO3 26 Base Excess 2.6 H O2 Saturation 79 L* ABG pH 7.44 H ABG pCO2 39 ABG pO2 47 L* ABG O2 Content 11.1 L ABG Carboxyhemoglobin 1.3 ABG Methemoglobin 1.1 Hemoglobin 9.9 L O2 Delivery Device AMBU Liter Flow 15 Vent Setting Inspired O2 POC Sodium Sodium POC Potassium Potassium POC Chloride Chloride Carbon Dioxide Anion Gap POC BUN BUN Creatinine POC Creatinine Estimated GFR POC Glucose Random Glucose Hemoglobin A1c Serum Osmolality 329 H Lactic Acid Calcium Prot Corrected Calcium Phosphorus Magnesium Total Bilirubin Direct Bilirubin Indirect Bilirubin AST ALT Alkaline Phosphatase Ammonia Total Creatine Kinase CK-MB (CK-2) CK-MB (CK-2) % Troponin I B-Natriuretic Peptide Total Protein Albumin Prealbumin Procalcitonin TSH Free T4 TSH 3rd Generation Urine Color Urine Clarity Urine Turbidity Urine pH Ur Specific [place] Urine Protein Urine Glucose (UA) Urine Ketones Urine Occult Blood Urine Nitrate Urine Nitrite Urine Bilirubin Urine Urobilinogen Ur Leukocyte Esterase Urine RBC Urine WBC Ur Squamous Epith Cells Ur Transition Epith Cell Amorphous Sediment Urine Bacteria Hyaline Casts Urine Mucus Urine Yeast (Budding) Micro UA Comment Urine Culture Comments Urine Osmolality Ur Random Sodium CSF Volume (1) CSF Supernat Color (1) CSF Gross Blood (1) CSF Volume (2) CSF Supernat Color (2) CSF Gross Blood (2) CSF Volume (3) CSF Supernat Color (3) CSF Volume (4) CSF Supernat Color (4) CSF WBC (4) CSF RBC (4) CSF Neutrophils CSF Lymphocytes CSF Monocytes CSF Glucose CSF Total Protein Nasal Screen MRSA (PCR) Bronchial Other Cells BAL WBC BAL RBC BAL Neutrophils BAL Lymphocytes BAL Eosinophils BAL Plasma Cells BAL Histiocytes BAL Diff Comment Lavage Fld Tot Volume Lavage Tot WBC Count Stl C.difficile Tox PCR St C. diff Tox Epid 027 Vancomycin Trough Valproic Acid Levetiracetam Ethyl Alcohol 01/17/17 01/18/17 01/18/17 16:30 04:15 16:59 WBC RBC Hgb POC Hgb Hct POC Hct MCV MCH MCHC RDW Plt Count MPV Neut % (Auto) Lymph % (Auto) [place] % (Auto) Eos % (Auto) Baso % (Auto) Neut # (Auto) Lymph # (Auto) [place] # (Auto) Eos # (Auto) Baso # (Auto) CBC Comment WBC Differential Total Counted Neutrophils % (Manual) Band Neutrophils % Lymphocytes % Monocytes % Eosinophils % Basophils % Neutrophils # (Manual) Metamyelocytes Myelocytes Promyelocytes Nucleated RBCs Differential Comment Toxic Granulation Platelet Estimate Plt Morphology Comment RBC Morph Comment PT INR APTT Fibrinogen Puncture Site Patient Temperature HCO3 Base Excess O2 Saturation ABG pH ABG pCO2 ABG pO2 ABG O2 Content ABG Carboxyhemoglobin ABG Methemoglobin Hemoglobin O2 Delivery Device Liter Flow Vent Setting Inspired O2 POC Sodium Sodium POC Potassium Potassium POC Chloride Chloride Carbon Dioxide Anion Gap POC BUN BUN Creatinine POC Creatinine Estimated GFR POC Glucose Random Glucose Hemoglobin A1c Serum Osmolality 345 H Lactic Acid Calcium Prot Corrected Calcium Phosphorus Magnesium Total Bilirubin Direct Bilirubin Indirect Bilirubin AST ALT Alkaline Phosphatase Ammonia Total Creatine Kinase CK-MB (CK-2) CK-MB (CK-2) % Troponin I B-Natriuretic Peptide Total Protein Albumin Prealbumin Procalcitonin TSH Free T4 TSH 3rd Generation Urine Color Urine Clarity Urine Turbidity Urine pH Ur Specific [place] GREATER THAN 1.035 H Urine Protein Urine Glucose (UA) Urine Ketones Urine Occult Blood Urine Nitrate Urine Nitrite Urine Bilirubin Urine Urobilinogen Ur Leukocyte Esterase Urine RBC Urine WBC Ur Squamous Epith Cells Ur Transition Epith Cell Amorphous Sediment Urine Bacteria Hyaline Casts Urine Mucus Urine Yeast (Budding) Micro UA Comment Urine Culture Comments Urine Osmolality Ur Random Sodium CSF Volume (1) CSF Supernat Color (1) CSF Gross Blood (1) CSF Volume (2) CSF Supernat Color (2) CSF Gross Blood (2) CSF Volume (3) CSF Supernat Color (3) CSF Volume (4) CSF Supernat Color (4) CSF WBC (4) CSF RBC (4) CSF Neutrophils CSF Lymphocytes CSF Monocytes CSF Glucose CSF Total Protein Nasal Screen MRSA (PCR) Bronchial Other Cells Cancelled BAL WBC Cancelled BAL RBC Cancelled BAL Neutrophils Cancelled BAL Lymphocytes Cancelled BAL Eosinophils Cancelled BAL Plasma Cells Cancelled BAL Histiocytes Cancelled BAL Diff Comment Cancelled Lavage Fld Tot Volume Cancelled Lavage Tot WBC Count Cancelled Stl C.difficile Tox PCR St C. diff Tox Epid 027 Vancomycin Trough Valproic Acid Levetiracetam Ethyl Alcohol 01/19/17 01/19/17 01/19/17 04:28 04:28 04:28 WBC 18.7 H RBC 3.17 L Hgb 9.4 L POC Hgb Hct 28.7 L POC Hct MCV 90.6 MCH 29.7 MCHC 32.7 RDW 14.5 Plt Count 294 D MPV 9.3 Neut % (Auto) 84.1 H Lymph % (Auto) 6.3 L [place] % (Auto) 7.8 Eos % (Auto) 1.3 Baso % (Auto) 0.5 Neut # (Auto) 15.7 H Lymph # (Auto) 1.2 [place] # (Auto) 1.5 H Eos # (Auto) 0.2 Baso # (Auto) 0.1 CBC Comment DIFF FINAL WBC Differential Total Counted Neutrophils % (Manual) Band Neutrophils % Lymphocytes % Monocytes % Eosinophils % Basophils % Neutrophils # (Manual) Metamyelocytes Myelocytes Promyelocytes Nucleated RBCs Differential Comment Toxic Granulation Platelet Estimate Plt Morphology Comment RBC Morph Comment PT INR APTT Fibrinogen Puncture Site Patient Temperature HCO3 Base Excess O2 Saturation ABG pH ABG pCO2 ABG pO2 ABG O2 Content ABG Carboxyhemoglobin ABG Methemoglobin Hemoglobin O2 Delivery Device Liter Flow Vent Setting Inspired O2 POC Sodium Sodium 162 H* POC Potassium Potassium 3.4 L POC Chloride Chloride 129 H D Carbon Dioxide 26.6 Anion Gap 6 POC BUN BUN 25 H Creatinine 1.17 POC Creatinine Estimated GFR 75 L POC Glucose Random Glucose 107 H Hemoglobin A1c Serum Osmolality Lactic Acid Calcium 8.8 D Prot Corrected Calcium Phosphorus Magnesium Total Bilirubin Direct Bilirubin Indirect Bilirubin AST ALT Alkaline Phosphatase Ammonia Total Creatine Kinase CK-MB (CK-2) CK-MB (CK-2) % Troponin I B-Natriuretic Peptide Total Protein Albumin Prealbumin Procalcitonin 0.29 H TSH Free T4 TSH 3rd Generation Urine Color Urine Clarity Urine Turbidity Urine pH Ur Specific [place] Urine Protein Urine Glucose (UA) Urine Ketones Urine Occult Blood Urine Nitrate Urine Nitrite Urine Bilirubin Urine Urobilinogen Ur Leukocyte Esterase Urine RBC Urine WBC Ur Squamous Epith Cells Ur Transition Epith Cell Amorphous Sediment Urine Bacteria Hyaline Casts Urine Mucus Urine Yeast (Budding) Micro UA Comment Urine Culture Comments Urine Osmolality Ur Random Sodium CSF Volume (1) CSF Supernat Color (1) CSF Gross Blood (1) CSF Volume (2) CSF Supernat Color (2) CSF Gross Blood (2) CSF Volume (3) CSF Supernat Color (3) CSF Volume (4) CSF Supernat Color (4) CSF WBC (4) CSF RBC (4) CSF Neutrophils CSF Lymphocytes CSF Monocytes CSF Glucose CSF Total Protein Nasal Screen MRSA (PCR) Bronchial Other Cells BAL WBC BAL RBC BAL Neutrophils BAL Lymphocytes BAL Eosinophils BAL Plasma Cells BAL Histiocytes BAL Diff Comment Lavage Fld Tot Volume Lavage Tot WBC Count Stl C.difficile Tox PCR St C. diff Tox Epid 027 Vancomycin Trough Valproic Acid Levetiracetam Ethyl Alcohol 01/20/17 01/20/17 01/20/17 05:13 05:13 18:10 WBC 14.3 H RBC 2.75 L Hgb 8.3 L POC Hgb Hct 25.0 L POC Hct MCV 91.0 MCH 30.1 MCHC 33.1 RDW 14.4 Plt Count 299 MPV 9.3 Neut % (Auto) 78.3 H Lymph % (Auto) 12.2 [place] % (Auto) 6.9 Eos % (Auto) 2.0 Baso % (Auto) 0.6 Neut # (Auto) 11.2 H Lymph # (Auto) 1.8 [place] # (Auto) 1.0 H Eos # (Auto) 0.3 Baso # (Auto) 0.1 CBC Comment DIFF FINAL WBC Differential Total Counted Neutrophils % (Manual) Band Neutrophils % Lymphocytes % Monocytes % Eosinophils % Basophils % Neutrophils # (Manual) Metamyelocytes Myelocytes Promyelocytes Nucleated RBCs Differential Comment Toxic Granulation Platelet Estimate Plt Morphology Comment RBC Morph Comment PT INR APTT Fibrinogen Puncture Site Patient Temperature HCO3 Base Excess O2 Saturation ABG pH ABG pCO2 ABG pO2 ABG O2 Content ABG Carboxyhemoglobin ABG Methemoglobin Hemoglobin O2 Delivery Device Liter Flow Vent Setting Inspired O2 POC Sodium Sodium 158 H* 154 H POC Potassium Potassium 3.5 POC Chloride Chloride 126 H Carbon Dioxide 25.0 Anion Gap 7 POC BUN BUN 27 H Creatinine 1.13 POC Creatinine Estimated GFR 78 L POC Glucose Random Glucose 135 H Hemoglobin A1c Serum Osmolality Lactic Acid Calcium 8.2 L Prot Corrected Calcium Phosphorus Magnesium 2.6 H Total Bilirubin 0.4 Direct Bilirubin Indirect Bilirubin AST 41 H ALT 24 Alkaline Phosphatase 85 Ammonia Total Creatine Kinase CK-MB (CK-2) CK-MB (CK-2) % Troponin I B-Natriuretic Peptide Total Protein 6.4 Albumin 1.9 L Prealbumin Procalcitonin TSH Free T4 TSH 3rd Generation Urine Color Urine Clarity Urine Turbidity Urine pH Ur Specific [place] Urine Protein Urine Glucose (UA) Urine Ketones Urine Occult Blood Urine Nitrate Urine Nitrite Urine Bilirubin Urine Urobilinogen Ur Leukocyte Esterase Urine RBC Urine WBC Ur Squamous Epith Cells Ur Transition Epith Cell Amorphous Sediment Urine Bacteria Hyaline Casts Urine Mucus Urine Yeast (Budding) Micro UA Comment Urine Culture Comments Urine Osmolality Ur Random Sodium CSF Volume (1) CSF Supernat Color (1) CSF Gross Blood (1) CSF Volume (2) CSF Supernat Color (2) CSF Gross Blood (2) CSF Volume (3) CSF Supernat Color (3) CSF Volume (4) CSF Supernat Color (4) CSF WBC (4) CSF RBC (4) CSF Neutrophils CSF Lymphocytes CSF Monocytes CSF Glucose CSF Total Protein Nasal Screen MRSA (PCR) Bronchial Other Cells BAL WBC BAL RBC BAL Neutrophils BAL Lymphocytes BAL Eosinophils BAL Plasma Cells BAL Histiocytes BAL Diff Comment Lavage Fld Tot Volume Lavage Tot WBC Count Stl C.difficile Tox PCR St C. diff Tox Epid 027 Vancomycin Trough Valproic Acid Levetiracetam Ethyl Alcohol 01/21/17 01/21/17 01/21/17 04:09 04:09 18:20 WBC 13.0 H RBC 2.59 L Hgb 7.7 L POC Hgb Hct 23.6 L POC Hct MCV 91.2 MCH 29.8 MCHC 32.7 RDW 14.5 Plt Count 306 MPV 9.5 Neut % (Auto) 75.5 H Lymph % (Auto) 13.5 [place] % (Auto) 6.6 Eos % (Auto) 4.0 Baso % (Auto) 0.4 Neut # (Auto) 9.8 H Lymph # (Auto) 1.8 [place] # (Auto) 0.9 Eos # (Auto) 0.5 H Baso # (Auto) 0.1 CBC Comment AUTO DIFF WBC Differential Total Counted 100 Neutrophils % (Manual) 62 Band Neutrophils % 20 H Lymphocytes % 11 Monocytes % 2 Eosinophils % 2 Basophils % Neutrophils # (Manual) 11.1 H Metamyelocytes 3 H Myelocytes Promyelocytes Nucleated RBCs Differential Comment FINAL DIFF MANUAL Toxic Granulation Platelet Estimate NORMAL Plt Morphology Comment NORMAL RBC Morph Comment PT INR APTT Fibrinogen Puncture Site Patient Temperature HCO3 Base Excess O2 Saturation ABG pH ABG pCO2 ABG pO2 ABG O2 Content ABG Carboxyhemoglobin ABG Methemoglobin Hemoglobin O2 Delivery Device Liter Flow Vent Setting Inspired O2 POC Sodium Sodium 150 H 143 POC Potassium Potassium 3.8 POC Chloride Chloride 117 H D Carbon Dioxide 23.6 Anion Gap 9 POC BUN BUN 24 H Creatinine 0.81 POC Creatinine Estimated GFR 114 POC Glucose Random Glucose 157 H Hemoglobin A1c Serum Osmolality Lactic Acid Calcium 8.1 L Prot Corrected Calcium Phosphorus Magnesium 2.5 Total Bilirubin 0.4 Direct Bilirubin Indirect Bilirubin AST 54 H ALT 24 Alkaline Phosphatase 70 Ammonia Total Creatine Kinase CK-MB (CK-2) CK-MB (CK-2) % Troponin I B-Natriuretic Peptide Total Protein 5.8 L D Albumin 1.7 L Prealbumin Procalcitonin TSH Free T4 TSH 3rd Generation Urine Color Urine Clarity Urine Turbidity Urine pH Ur Specific [place] Urine Protein Urine Glucose (UA) Urine Ketones Urine Occult Blood Urine Nitrate Urine Nitrite Urine Bilirubin Urine Urobilinogen Ur Leukocyte Esterase Urine RBC Urine WBC Ur Squamous Epith Cells Ur Transition Epith Cell Amorphous Sediment Urine Bacteria Hyaline Casts Urine Mucus Urine Yeast (Budding) Micro UA Comment Urine Culture Comments Urine Osmolality Ur Random Sodium CSF Volume (1) CSF Supernat Color (1) CSF Gross Blood (1) CSF Volume (2) CSF Supernat Color (2) CSF Gross Blood (2) CSF Volume (3) CSF Supernat Color (3) CSF Volume (4) CSF Supernat Color (4) CSF WBC (4) CSF RBC (4) CSF Neutrophils CSF Lymphocytes CSF Monocytes CSF Glucose CSF Total Protein Nasal Screen MRSA (PCR) Bronchial Other Cells BAL WBC BAL RBC BAL Neutrophils BAL Lymphocytes BAL Eosinophils BAL Plasma Cells BAL Histiocytes BAL Diff Comment Lavage Fld Tot Volume Lavage Tot WBC Count Stl C.difficile Tox PCR St C. diff Tox Epid 027 Vancomycin Trough Valproic Acid Levetiracetam Ethyl Alcohol 01/22/17 01/22/17 01/23/17 04:02 04:02 03:33 WBC 13.2 H RBC 2.54 L Hgb 7.6 L POC Hgb Hct 22.8 L POC Hct MCV 89.5 MCH 29.7 MCHC 33.2 RDW 13.9 Plt Count 345 MPV 9.5 Neut % (Auto) 77.6 H Lymph % (Auto) 12.4 [place] % (Auto) 6.2 Eos % (Auto) 3.4 Baso % (Auto) 0.4 Neut # (Auto) 10.3 H Lymph # (Auto) 1.6 [place] # (Auto) 0.8 Eos # (Auto) 0.4 Baso # (Auto) 0.0 CBC Comment AUTO DIFF WBC Differential Total Counted 100 Neutrophils % (Manual) 58 Band Neutrophils % 16 H Lymphocytes % 16 Monocytes % 5 Eosinophils % 2 Basophils % Neutrophils # (Manual) 10.2 H Metamyelocytes 2 H Myelocytes 1 H Promyelocytes Nucleated RBCs Differential Comment FINAL DIFF MANUAL Toxic Granulation 1+ H Platelet Estimate NORMAL Plt Morphology Comment NORMAL RBC Morph Comment PT INR APTT Fibrinogen Puncture Site Patient Temperature HCO3 Base Excess O2 Saturation ABG pH ABG pCO2 ABG pO2 ABG O2 Content ABG Carboxyhemoglobin ABG Methemoglobin Hemoglobin O2 Delivery Device Liter Flow Vent Setting Inspired O2 POC Sodium Sodium 140 134 L POC Potassium Potassium 4.0 4.3 POC Chloride Chloride 111 H 102 D Carbon Dioxide 21.9 26.5 Anion Gap 7 6 POC BUN BUN 24 H 20 H Creatinine 0.80 0.77 POC Creatinine Estimated GFR 116 121 POC Glucose Random Glucose 140 H 117 H Hemoglobin A1c Serum Osmolality Lactic Acid Calcium 7.5 L 8.0 L Prot Corrected Calcium Phosphorus Magnesium 2.2 Total Bilirubin 0.3 0.4 Direct Bilirubin Indirect Bilirubin AST 64 H 166 H ALT 31 84 H Alkaline Phosphatase 89 117 Ammonia Total Creatine Kinase CK-MB (CK-2) CK-MB (CK-2) % Troponin I B-Natriuretic Peptide Total Protein 6.1 L 6.6 Albumin 1.8 L 2.0 L Prealbumin Procalcitonin TSH Free T4 TSH 3rd Generation Urine Color Urine Clarity Urine Turbidity Urine pH Ur Specific [place] Urine Protein Urine Glucose (UA) Urine Ketones Urine Occult Blood Urine Nitrate Urine Nitrite Urine Bilirubin Urine Urobilinogen Ur Leukocyte Esterase Urine RBC Urine WBC Ur Squamous Epith Cells Ur Transition Epith Cell Amorphous Sediment Urine Bacteria Hyaline Casts Urine Mucus Urine Yeast (Budding) Micro UA Comment Urine Culture Comments Urine Osmolality Ur Random Sodium CSF Volume (1) CSF Supernat Color (1) CSF Gross Blood (1) CSF Volume (2) CSF Supernat Color (2) CSF Gross Blood (2) CSF Volume (3) CSF Supernat Color (3) CSF Volume (4) CSF Supernat Color (4) CSF WBC (4) CSF RBC (4) CSF Neutrophils CSF Lymphocytes CSF Monocytes CSF Glucose CSF Total Protein Nasal Screen MRSA (PCR) Bronchial Other Cells BAL WBC BAL RBC BAL Neutrophils BAL Lymphocytes BAL Eosinophils BAL Plasma Cells BAL Histiocytes BAL Diff Comment Lavage Fld Tot Volume Lavage Tot WBC Count Stl C.difficile Tox PCR St C. diff Tox Epid 027 Vancomycin Trough Valproic Acid Levetiracetam Ethyl Alcohol 01/23/17 01/23/17 01/24/17 03:33 10:55 04:10 WBC 19.2 H RBC 2.98 L Hgb 8.8 L POC Hgb Hct 26.5 L POC Hct MCV 88.9 MCH 29.5 MCHC 33.2 RDW 13.8 Plt Count 360 MPV 9.8 Neut % (Auto) 83.6 H Lymph % (Auto) 8.3 L [place] % (Auto) 6.4 Eos % (Auto) 1.0 Baso % (Auto) 0.7 Neut # (Auto) 16.0 H Lymph # (Auto) 1.6 [place] # (Auto) 1.2 H Eos # (Auto) 0.2 Baso # (Auto) 0.1 CBC Comment AUTO DIFF WBC Differential Total Counted 100 Neutrophils % (Manual) 53 Band Neutrophils % 25 H Lymphocytes % 7 L Monocytes % 10 H Eosinophils % Basophils % Neutrophils # (Manual) 15.9 H Metamyelocytes 5 H Myelocytes Promyelocytes Nucleated RBCs Differential Comment FINAL DIFF MANUAL Toxic Granulation 1+ H Platelet Estimate NORMAL Plt Morphology Comment ENLARGED H RBC Morph Comment PT INR APTT Fibrinogen Puncture Site Patient Temperature HCO3 Base Excess O2 Saturation ABG pH ABG pCO2 ABG pO2 ABG O2 Content ABG Carboxyhemoglobin ABG Methemoglobin Hemoglobin O2 Delivery Device Liter Flow Vent Setting Inspired O2 POC Sodium Sodium 140 POC Potassium Potassium 4.5 POC Chloride Chloride 104 Carbon Dioxide 27.7 Anion Gap 8 POC BUN BUN 21 H Creatinine 0.87 POC Creatinine Estimated GFR 105 POC Glucose Random Glucose 103 Hemoglobin A1c Serum Osmolality Lactic Acid Calcium 8.5 Prot Corrected Calcium Phosphorus 4.6 Magnesium 2.9 H Total Bilirubin 0.6 Direct Bilirubin Indirect Bilirubin AST 82 H ALT 61 Alkaline Phosphatase 115 Ammonia Total Creatine Kinase CK-MB (CK-2) CK-MB (CK-2) % Troponin I B-Natriuretic Peptide Total Protein 7.3 D Albumin 2.3 L Prealbumin Procalcitonin TSH Free T4 TSH 3rd Generation Urine Color YELLOW Urine Clarity Urine Turbidity CLEAR Urine pH 7.5 Ur Specific [place] 1.011 Urine Protein NEG Urine Glucose (UA) NEG Urine Ketones NEG Urine Occult Blood SMALL H Urine Nitrate Urine Nitrite NEG Urine Bilirubin NEG Urine Urobilinogen LESS THAN 2.0 Ur Leukocyte Esterase TRACE H Urine RBC 1 Urine WBC 5 Ur Squamous Epith Cells Ur Transition Epith Cell Amorphous Sediment Urine Bacteria RARE H Hyaline Casts 3 Urine Mucus FEW H Urine Yeast (Budding) Micro UA Comment CATH-CULTURE IND Urine Culture Comments Urine Osmolality Ur Random Sodium CSF Volume (1) CSF Supernat Color (1) CSF Gross Blood (1) CSF Volume (2) CSF Supernat Color (2) CSF Gross Blood (2) CSF Volume (3) CSF Supernat Color (3) CSF Volume (4) CSF Supernat Color (4) CSF WBC (4) CSF RBC (4) CSF Neutrophils CSF Lymphocytes CSF Monocytes CSF Glucose CSF Total Protein Nasal Screen MRSA (PCR) Bronchial Other Cells BAL WBC BAL RBC BAL Neutrophils BAL Lymphocytes BAL Eosinophils BAL Plasma Cells BAL Histiocytes BAL Diff Comment Lavage Fld Tot Volume Lavage Tot WBC Count Stl C.difficile Tox PCR St C. diff Tox Epid 027 Vancomycin Trough Valproic Acid Levetiracetam Ethyl Alcohol 01/24/17 01/24/17 01/24/17 04:10 05:21 11:22 WBC 25.6 H RBC 2.51 L Hgb 7.4 L POC Hgb Hct 22.5 L POC Hct MCV 89.9 MCH 29.5 MCHC 32.8 RDW 13.8 Plt Count 473 H D MPV 10.1 Neut % (Auto) 81.0 H Lymph % (Auto) 7.7 L [place] % (Auto) 9.6 H Eos % (Auto) 1.1 Baso % (Auto) 0.6 Neut # (Auto) 20.7 H Lymph # (Auto) 2.0 [place] # (Auto) 2.5 H Eos # (Auto) 0.3 Baso # (Auto) 0.2 CBC Comment AUTO DIFF WBC Differential Total Counted 100 Neutrophils % (Manual) 75 H Band Neutrophils % 8 H Lymphocytes % 4 L Monocytes % 6 Eosinophils % 3 Basophils % Neutrophils # (Manual) 22.3 H Metamyelocytes 2 H Myelocytes 1 H Promyelocytes 1 H Nucleated RBCs Differential Comment FINAL DIFF MANUAL Toxic Granulation 1+ H Platelet Estimate HIGH H Plt Morphology Comment NORMAL RBC Morph Comment PT INR APTT Fibrinogen Puncture Site LT RADIAL Patient Temperature 98.6 HCO3 27 H Base Excess 3.1 H O2 Saturation 91 ABG pH 7.47 H ABG pCO2 37 L ABG pO2 68 ABG O2 Content 11.1 L ABG Carboxyhemoglobin 1.1 ABG Methemoglobin 0.9 Hemoglobin 8.7 L O2 Delivery Device VENTILATOR Liter Flow Vent Setting SEE COMMENTS Inspired O2 50 POC Sodium Sodium POC Potassium Potassium POC Chloride Chloride Carbon Dioxide Anion Gap POC BUN BUN Creatinine POC Creatinine Estimated GFR POC Glucose Random Glucose Hemoglobin A1c Serum Osmolality Lactic Acid Calcium Prot Corrected Calcium Phosphorus Magnesium Total Bilirubin Direct Bilirubin Indirect Bilirubin AST ALT Alkaline Phosphatase Ammonia Total Creatine Kinase CK-MB (CK-2) CK-MB (CK-2) % Troponin I B-Natriuretic Peptide Total Protein Albumin Prealbumin Procalcitonin TSH Free T4 TSH 3rd Generation Urine Color Urine Clarity Urine Turbidity Urine pH Ur Specific [place] Urine Protein Urine Glucose (UA) Urine Ketones Urine Occult Blood Urine Nitrate Urine Nitrite Urine Bilirubin Urine Urobilinogen Ur Leukocyte Esterase Urine RBC Urine WBC Ur Squamous Epith Cells Ur Transition Epith Cell Amorphous Sediment Urine Bacteria Hyaline Casts Urine Mucus Urine Yeast (Budding) Micro UA Comment Urine Culture Comments Urine Osmolality Ur Random Sodium CSF Volume (1) CSF Supernat Color (1) CSF Gross Blood (1) CSF Volume (2) CSF Supernat Color (2) CSF Gross Blood (2) CSF Volume (3) CSF Supernat Color (3) CSF Volume (4) CSF Supernat Color (4) CSF WBC (4) CSF RBC (4) CSF Neutrophils CSF Lymphocytes CSF Monocytes CSF Glucose CSF Total Protein Nasal Screen MRSA (PCR) Bronchial Other Cells BAL WBC BAL RBC BAL Neutrophils BAL Lymphocytes BAL Eosinophils BAL Plasma Cells BAL Histiocytes BAL Diff Comment Lavage Fld Tot Volume Lavage Tot WBC Count Stl C.difficile Tox PCR NEGATIVE St C. diff Tox Epid 027 PRESUMPTIVE NEGATIVE Vancomycin Trough Valproic Acid Levetiracetam Ethyl Alcohol 01/24/17 01/24/17 01/24/17 15:33 15:33 16:08 WBC RBC Hgb 9.4 L D POC Hgb Hct 28.4 L POC Hct MCV MCH MCHC RDW Plt Count MPV Neut % (Auto) Lymph % (Auto) [place] % (Auto) Eos % (Auto) Baso % (Auto) Neut # (Auto) Lymph # (Auto) [place] # (Auto) Eos # (Auto) Baso # (Auto) CBC Comment WBC Differential Total Counted Neutrophils % (Manual) Band Neutrophils % Lymphocytes % Monocytes % Eosinophils % Basophils % Neutrophils # (Manual) Metamyelocytes Myelocytes Promyelocytes Nucleated RBCs Differential Comment Toxic Granulation Platelet Estimate Plt Morphology Comment RBC Morph Comment PT 11.4 INR 1.0 APTT Fibrinogen Puncture Site Patient Temperature HCO3 Base Excess O2 Saturation ABG pH ABG pCO2 ABG pO2 ABG O2 Content ABG Carboxyhemoglobin ABG Methemoglobin Hemoglobin O2 Delivery Device Liter Flow Vent Setting Inspired O2 POC Sodium Sodium POC Potassium Potassium POC Chloride Chloride Carbon Dioxide Anion Gap POC BUN BUN Creatinine POC Creatinine Estimated GFR POC Glucose Random Glucose Hemoglobin A1c Serum Osmolality Lactic Acid Calcium Prot Corrected Calcium Phosphorus Magnesium Total Bilirubin Direct Bilirubin Indirect Bilirubin AST ALT Alkaline Phosphatase Ammonia Total Creatine Kinase CK-MB (CK-2) CK-MB (CK-2) % Troponin I B-Natriuretic Peptide Total Protein Albumin Prealbumin Procalcitonin TSH Free T4 TSH 3rd Generation Urine Color Urine Clarity Urine Turbidity Urine pH Ur Specific [place] Urine Protein Urine Glucose (UA) Urine Ketones Urine Occult Blood Urine Nitrate Urine Nitrite Urine Bilirubin Urine Urobilinogen Ur Leukocyte Esterase Urine RBC Urine WBC Ur Squamous Epith Cells Ur Transition Epith Cell Amorphous Sediment Urine Bacteria Hyaline Casts Urine Mucus Urine Yeast (Budding) Micro UA Comment Urine Culture Comments Urine Osmolality Ur Random Sodium CSF Volume (1) CSF Supernat Color (1) CSF Gross Blood (1) CSF Volume (2) CSF Supernat Color (2) CSF Gross Blood (2) CSF Volume (3) CSF Supernat Color (3) CSF Volume (4) CSF Supernat Color (4) CSF WBC (4) CSF RBC (4) CSF Neutrophils CSF Lymphocytes CSF Monocytes CSF Glucose CSF Total Protein Nasal Screen MRSA (PCR) Bronchial Other Cells BAL WBC BAL RBC BAL Neutrophils BAL Lymphocytes BAL Eosinophils BAL Plasma Cells BAL Histiocytes BAL Diff Comment Lavage Fld Tot Volume Lavage Tot WBC Count Stl C.difficile Tox PCR St C. diff Tox Epid 027 Vancomycin Trough 19.1 H Valproic Acid 5 L Levetiracetam Ethyl Alcohol 01/24/17 01/25/17 01/25/17 16:43 04:23 04:23 WBC 15.7 H RBC 3.19 L Hgb 9.4 L POC Hgb Hct 28.5 L POC Hct MCV 89.4 MCH 29.5 MCHC 33.0 RDW 15.3 Plt Count 390 MPV 10.2 Neut % (Auto) 72.6 H Lymph % (Auto) 11.0 [place] % (Auto) 12.6 H Eos % (Auto) 2.6 Baso % (Auto) 1.2 Neut # (Auto) 11.4 H Lymph # (Auto) 1.7 [place] # (Auto) 2.0 H Eos # (Auto) 0.4 Baso # (Auto) 0.2 CBC Comment AUTO DIFF WBC Differential Total Counted 100 Neutrophils % (Manual) 56 Band Neutrophils % 13 H Lymphocytes % 13 Monocytes % 12 H Eosinophils % 1 Basophils % Neutrophils # (Manual) 11.6 H Metamyelocytes Myelocytes 5 H Promyelocytes Nucleated RBCs 1 H Differential Comment FINAL DIFF MANUAL Toxic Granulation Platelet Estimate NORMAL Plt Morphology Comment NORMAL RBC Morph Comment PT INR APTT Fibrinogen Puncture Site Patient Temperature HCO3 Base Excess O2 Saturation ABG pH ABG pCO2 ABG pO2 ABG O2 Content ABG Carboxyhemoglobin ABG Methemoglobin Hemoglobin O2 Delivery Device Liter Flow Vent Setting Inspired O2 POC Sodium Sodium 151 H D POC Potassium Potassium 4.0 POC Chloride Chloride 116 H D Carbon Dioxide 28.1 Anion Gap 7 POC BUN BUN 21 H Creatinine 0.85 POC Creatinine Estimated GFR 108 POC Glucose Random Glucose 108 H Hemoglobin A1c Serum Osmolality Lactic Acid Calcium 8.3 L Prot Corrected Calcium Phosphorus 2.7 D Magnesium 2.7 H Total Bilirubin 0.4 Direct Bilirubin Indirect Bilirubin AST 68 H ALT 49 Alkaline Phosphatase 109 Ammonia Total Creatine Kinase CK-MB (CK-2) CK-MB (CK-2) % Troponin I B-Natriuretic Peptide Total Protein 6.7 D Albumin 2.1 L Prealbumin Procalcitonin TSH Free T4 TSH 3rd Generation Urine Color Urine Clarity Urine Turbidity Urine pH Ur Specific [place] Urine Protein Urine Glucose (UA) Urine Ketones Urine Occult Blood Urine Nitrate Urine Nitrite Urine Bilirubin Urine Urobilinogen Ur Leukocyte Esterase Urine RBC Urine WBC Ur Squamous Epith Cells Ur Transition Epith Cell Amorphous Sediment Urine Bacteria Hyaline Casts Urine Mucus Urine Yeast (Budding) Micro UA Comment Urine Culture Comments Urine Osmolality Ur Random Sodium CSF Volume (1) CSF Supernat Color (1) CSF Gross Blood (1) CSF Volume (2) CSF Supernat Color (2) CSF Gross Blood (2) CSF Volume (3) CSF Supernat Color (3) CSF Volume (4) CSF Supernat Color (4) CSF WBC (4) CSF RBC (4) CSF Neutrophils CSF Lymphocytes CSF Monocytes CSF Glucose CSF Total Protein Nasal Screen MRSA (PCR) Bronchial Other Cells BAL WBC BAL RBC BAL Neutrophils BAL Lymphocytes BAL Eosinophils BAL Plasma Cells BAL Histiocytes BAL Diff Comment Lavage Fld Tot Volume Lavage Tot WBC Count Stl C.difficile Tox PCR St C. diff Tox Epid 027 Vancomycin Trough Valproic Acid Levetiracetam 6.0 L Ethyl Alcohol 01/25/17 01/25/17 01/26/17 17:14 17:14 09:22 WBC RBC Hgb POC Hgb Hct POC Hct MCV MCH MCHC RDW Plt Count MPV Neut % (Auto) Lymph % (Auto) [place] % (Auto) Eos % (Auto) Baso % (Auto) Neut # (Auto) Lymph # (Auto) [place] # (Auto) Eos # (Auto) Baso # (Auto) CBC Comment WBC Differential Total Counted Neutrophils % (Manual) Band Neutrophils % Lymphocytes % Monocytes % Eosinophils % Basophils % Neutrophils # (Manual) Metamyelocytes Myelocytes Promyelocytes Nucleated RBCs Differential Comment Toxic Granulation Platelet Estimate Plt Morphology Comment RBC Morph Comment PT INR APTT Fibrinogen Puncture Site Patient Temperature HCO3 Base Excess O2 Saturation ABG pH ABG pCO2 ABG pO2 ABG O2 Content ABG Carboxyhemoglobin ABG Methemoglobin Hemoglobin O2 Delivery Device Liter Flow Vent Setting Inspired O2 POC Sodium Sodium 152 H POC Potassium Potassium 3.7 POC Chloride Chloride 115 H Carbon Dioxide 28.0 Anion Gap 9 POC BUN BUN 19 H Creatinine 0.77 POC Creatinine Estimated GFR 121 POC Glucose Random Glucose 121 H Hemoglobin A1c Serum Osmolality Lactic Acid Calcium 8.2 L Prot Corrected Calcium Phosphorus Magnesium Total Bilirubin Direct Bilirubin Indirect Bilirubin AST ALT Alkaline Phosphatase Ammonia Total Creatine Kinase CK-MB (CK-2) CK-MB (CK-2) % Troponin I B-Natriuretic Peptide Total Protein Albumin Prealbumin Procalcitonin TSH Free T4 TSH 3rd Generation Urine Color Urine Clarity Urine Turbidity Urine pH Ur Specific [place] Urine Protein Urine Glucose (UA) Urine Ketones Urine Occult Blood Urine Nitrate Urine Nitrite Urine Bilirubin Urine Urobilinogen Ur Leukocyte Esterase Urine RBC Urine WBC Ur Squamous Epith Cells Ur Transition Epith Cell Amorphous Sediment Urine Bacteria Hyaline Casts Urine Mucus Urine Yeast (Budding) Micro UA Comment Urine Culture Comments Urine Osmolality Ur Random Sodium CSF Volume (1) 1.0 CSF Supernat Color (1) SLIGHTLY XANTHOCHROM H CSF Gross Blood (1) TRACE H CSF Volume (2) 1.5 CSF Supernat Color (2) SLIGHTLY XANTHOCHROM H CSF Gross Blood (2) TRACE H CSF Volume (3) 2.0 CSF Supernat Color (3) SLIGHTLY XANTHOCHROM H CSF Volume (4) 1.0 CSF Supernat Color (4) SLIGHTLY XANTHOCHROM H CSF WBC (4) 12 H CSF RBC (4) 289 H CSF Neutrophils 2 CSF Lymphocytes 92 CSF Monocytes 6 CSF Glucose 49 CSF Total Protein 127.9 H Nasal Screen MRSA (PCR) Bronchial Other Cells BAL WBC BAL RBC BAL Neutrophils BAL Lymphocytes BAL Eosinophils BAL Plasma Cells BAL Histiocytes BAL Diff Comment Lavage Fld Tot Volume Lavage Tot WBC Count Stl C.difficile Tox PCR St C. diff Tox Epid 027 Vancomycin Trough Valproic Acid Levetiracetam Ethyl Alcohol 01/26/17 01/26/17 01/27/17 09:22 11:20 04:47 WBC 9.5 RBC 3.11 L Hgb 9.2 L POC Hgb Hct 27.8 L POC Hct MCV 89.4 MCH 29.5 MCHC 33.0 RDW 15.2 Plt Count 463 H MPV 9.2 Neut % (Auto) 70.0 Lymph % (Auto) 15.2 [place] % (Auto) 9.9 H Eos % (Auto) 4.0 Baso % (Auto) 0.9 Neut # (Auto) 6.6 Lymph # (Auto) 1.4 [place] # (Auto) 0.9 Eos # (Auto) 0.4 Baso # (Auto) 0.1 CBC Comment AUTO DIFF WBC Differential Total Counted 100 Neutrophils % (Manual) 75 H Band Neutrophils % 4 Lymphocytes % 10 Monocytes % 3 Eosinophils % 1 Basophils % 1 Neutrophils # (Manual) 8.1 H Metamyelocytes 1 Myelocytes 4 H Promyelocytes 1 H Nucleated RBCs Differential Comment FINAL DIFF MANUAL Toxic Granulation Platelet Estimate HIGH H Plt Morphology Comment NORMAL RBC Morph Comment NORMAL PT INR APTT Fibrinogen Puncture Site Patient Temperature HCO3 Base Excess O2 Saturation ABG pH ABG pCO2 ABG pO2 ABG O2 Content ABG Carboxyhemoglobin ABG Methemoglobin Hemoglobin O2 Delivery Device Liter Flow Vent Setting Inspired O2 POC Sodium Sodium 154 H POC Potassium Potassium 4.0 POC Chloride Chloride 118 H Carbon Dioxide 26.7 Anion Gap 9 POC BUN BUN 17 Creatinine 0.67 POC Creatinine Estimated GFR 142 POC Glucose Random Glucose 107 H Hemoglobin A1c Serum Osmolality Lactic Acid Calcium 8.5 Prot Corrected Calcium Phosphorus Magnesium Total Bilirubin Direct Bilirubin Indirect Bilirubin AST ALT Alkaline Phosphatase Ammonia Total Creatine Kinase CK-MB (CK-2) CK-MB (CK-2) % Troponin I B-Natriuretic Peptide Total Protein Albumin Prealbumin Procalcitonin TSH Free T4 TSH 3rd Generation Urine Color Urine Clarity Urine Turbidity Urine pH Ur Specific [place] Urine Protein Urine Glucose (UA) Urine Ketones Urine Occult Blood Urine Nitrate Urine Nitrite Urine Bilirubin Urine Urobilinogen Ur Leukocyte Esterase Urine RBC Urine WBC Ur Squamous Epith Cells Ur Transition Epith Cell Amorphous Sediment Urine Bacteria Hyaline Casts Urine Mucus Urine Yeast (Budding) Micro UA Comment Urine Culture Comments Urine Osmolality Ur Random Sodium CSF Volume (1) CSF Supernat Color (1) CSF Gross Blood (1) CSF Volume (2) CSF Supernat Color (2) CSF Gross Blood (2) CSF Volume (3) CSF Supernat Color (3) CSF Volume (4) CSF Supernat Color (4) CSF WBC (4) CSF RBC (4) CSF Neutrophils CSF Lymphocytes CSF Monocytes CSF Glucose CSF Total Protein Nasal Screen MRSA (PCR) Bronchial Other Cells BAL WBC BAL RBC BAL Neutrophils BAL Lymphocytes BAL Eosinophils BAL Plasma Cells BAL Histiocytes BAL Diff Comment Lavage Fld Tot Volume Lavage Tot WBC Count Stl C.difficile Tox PCR St C. diff Tox Epid 027 Vancomycin Trough 28.8 H Valproic Acid Levetiracetam Ethyl Alcohol 01/27/17 01/28/17 01/28/17 04:47 04:55 04:55 WBC 12.5 H 12.7 H RBC 3.41 L 3.66 L Hgb 10.1 L 10.7 L POC Hgb Hct 30.9 L 33.2 L POC Hct MCV 90.6 90.8 MCH 29.5 29.2 MCHC 32.6 32.2 RDW 15.2 15.7 Plt Count 521 H 513 H MPV 9.8 10.0 Neut % (Auto) 74.8 H 75.4 H Lymph % (Auto) 12.5 12.9 [place] % (Auto) 9.4 H 7.0 Eos % (Auto) 3.1 3.6 Baso % (Auto) 0.2 1.1 Neut # (Auto) 9.4 H 9.6 H Lymph # (Auto) 1.6 1.6 [place] # (Auto) 1.2 H 0.9 Eos # (Auto) 0.4 0.5 H Baso # (Auto) 0.0 0.1 CBC Comment DIFF FINAL AUTO DIFF WBC Differential Total Counted 100 Neutrophils % (Manual) 55 Band Neutrophils % 21 H Lymphocytes % 10 Monocytes % 8 Eosinophils % 1 Basophils % 2 Neutrophils # (Manual) 10.0 H Metamyelocytes 1 Myelocytes 2 H Promyelocytes Nucleated RBCs Differential Comment FINAL DIFF MANUAL Toxic Granulation Platelet Estimate HIGH H Plt Morphology Comment NORMAL RBC Morph Comment PT INR APTT Fibrinogen Puncture Site Patient Temperature HCO3 Base Excess O2 Saturation ABG pH ABG pCO2 ABG pO2 ABG O2 Content ABG Carboxyhemoglobin ABG Methemoglobin Hemoglobin O2 Delivery Device Liter Flow Vent Setting Inspired O2 POC Sodium Sodium 148 H POC Potassium Potassium 3.7 POC Chloride Chloride 114 H Carbon Dioxide 25.7 Anion Gap 8 POC BUN BUN 20 H Creatinine 0.67 POC Creatinine Estimated GFR 142 POC Glucose Random Glucose 106 Hemoglobin A1c Serum Osmolality Lactic Acid Calcium 8.4 L Prot Corrected Calcium Phosphorus Magnesium Total Bilirubin Direct Bilirubin Indirect Bilirubin AST ALT Alkaline Phosphatase Ammonia Total Creatine Kinase CK-MB (CK-2) CK-MB (CK-2) % Troponin I B-Natriuretic Peptide Total Protein Albumin Prealbumin Procalcitonin TSH Free T4 TSH 3rd Generation Urine Color Urine Clarity Urine Turbidity Urine pH Ur Specific [place] Urine Protein Urine Glucose (UA) Urine Ketones Urine Occult Blood Urine Nitrate Urine Nitrite Urine Bilirubin Urine Urobilinogen Ur Leukocyte Esterase Urine RBC Urine WBC Ur Squamous Epith Cells Ur Transition Epith Cell Amorphous Sediment Urine Bacteria Hyaline Casts Urine Mucus Urine Yeast (Budding) Micro UA Comment Urine Culture Comments Urine Osmolality Ur Random Sodium CSF Volume (1) CSF Supernat Color (1) CSF Gross Blood (1) CSF Volume (2) CSF Supernat Color (2) CSF Gross Blood (2) CSF Volume (3) CSF Supernat Color (3) CSF Volume (4) CSF Supernat Color (4) CSF WBC (4) CSF RBC (4) CSF Neutrophils CSF Lymphocytes CSF Monocytes CSF Glucose CSF Total Protein Nasal Screen MRSA (PCR) Bronchial Other Cells BAL WBC BAL RBC BAL Neutrophils BAL Lymphocytes BAL Eosinophils BAL Plasma Cells BAL Histiocytes BAL Diff Comment Lavage Fld Tot Volume Lavage Tot WBC Count Stl C.difficile Tox PCR St C. diff Tox Epid 027 Vancomycin Trough Valproic Acid Levetiracetam Ethyl Alcohol 01/29/17 01/29/17 01/30/17 05:28 05:28 16:20 WBC 14.4 H RBC 3.86 L Hgb 11.0 L POC Hgb Hct 34.4 L POC Hct MCV 89.1 MCH 28.6 MCHC 32.1 RDW 15.1 Plt Count 540 H MPV 9.5 Neut % (Auto) 77.3 H Lymph % (Auto) 12.7 [place] % (Auto) 5.8 Eos % (Auto) 3.2 Baso % (Auto) 1.0 Neut # (Auto) 11.1 H Lymph # (Auto) 1.8 [place] # (Auto) 0.8 Eos # (Auto) 0.5 H Baso # (Auto) 0.2 CBC Comment AUTO DIFF WBC Differential Total Counted 100 Neutrophils % (Manual) 66 Band Neutrophils % 12 H Lymphocytes % 10 Monocytes % 12 H Eosinophils % Basophils % Neutrophils # (Manual) 11.2 H Metamyelocytes Myelocytes Promyelocytes Nucleated RBCs Differential Comment FINAL DIFF MANUAL Toxic Granulation Platelet Estimate HIGH H Plt Morphology Comment NORMAL RBC Morph Comment NORMAL PT INR APTT Fibrinogen Puncture Site Patient Temperature HCO3 Base Excess O2 Saturation ABG pH ABG pCO2 ABG pO2 ABG O2 Content ABG Carboxyhemoglobin ABG Methemoglobin Hemoglobin O2 Delivery Device Liter Flow Vent Setting Inspired O2 POC Sodium Sodium 147 H POC Potassium Potassium 4.1 POC Chloride Chloride 113 H Carbon Dioxide 24.8 Anion Gap 9 POC BUN BUN 22 H Creatinine 0.71 POC Creatinine Estimated GFR 133 POC Glucose Random Glucose 99 Hemoglobin A1c Serum Osmolality Lactic Acid Calcium 8.4 L Prot Corrected Calcium Phosphorus Magnesium Total Bilirubin Direct Bilirubin Indirect Bilirubin AST ALT Alkaline Phosphatase Ammonia Total Creatine Kinase CK-MB (CK-2) CK-MB (CK-2) % Troponin I B-Natriuretic Peptide Total Protein Albumin Prealbumin Procalcitonin 0.09 H TSH Free T4 TSH 3rd Generation Urine Color Urine Clarity Urine Turbidity Urine pH Ur Specific [place] Urine Protein Urine Glucose (UA) Urine Ketones Urine Occult Blood Urine Nitrate Urine Nitrite Urine Bilirubin Urine Urobilinogen Ur Leukocyte Esterase Urine RBC Urine WBC Ur Squamous Epith Cells Ur Transition Epith Cell Amorphous Sediment Urine Bacteria Hyaline Casts Urine Mucus Urine Yeast (Budding) Micro UA Comment Urine Culture Comments Urine Osmolality Ur Random Sodium CSF Volume (1) CSF Supernat Color (1) CSF Gross Blood (1) CSF Volume (2) CSF Supernat Color (2) CSF Gross Blood (2) CSF Volume (3) CSF Supernat Color (3) CSF Volume (4) CSF Supernat Color (4) CSF WBC (4) CSF RBC (4) CSF Neutrophils CSF Lymphocytes CSF Monocytes CSF Glucose CSF Total Protein Nasal Screen MRSA (PCR) Bronchial Other Cells BAL WBC BAL RBC BAL Neutrophils BAL Lymphocytes BAL Eosinophils BAL Plasma Cells BAL Histiocytes BAL Diff Comment Lavage Fld Tot Volume Lavage Tot WBC Count Stl C.difficile Tox PCR St C. diff Tox Epid 027 Vancomycin Trough Valproic Acid Levetiracetam Ethyl Alcohol 01/31/17 01/31/17 02/03/17 04:28 04:28 04:41 WBC 11.7 H RBC 3.68 L Hgb 10.7 L POC Hgb Hct 32.6 L POC Hct MCV 88.6 MCH 29.0 MCHC 32.7 RDW 14.8 Plt Count 451 H MPV 9.7 Neut % (Auto) 74.0 H Lymph % (Auto) 15.5 [place] % (Auto) 6.2 Eos % (Auto) 3.4 Baso % (Auto) 0.9 Neut # (Auto) 8.6 H Lymph # (Auto) 1.8 [place] # (Auto) 0.7 Eos # (Auto) 0.4 Baso # (Auto) 0.1 CBC Comment AUTO DIFF WBC Differential Total Counted 100 Neutrophils % (Manual) 79 H Band Neutrophils % 4 Lymphocytes % 7 L Monocytes % 6 Eosinophils % 3 Basophils % Neutrophils # (Manual) 9.8 H Metamyelocytes 1 Myelocytes Promyelocytes Nucleated RBCs Differential Comment FINAL DIFF MANUAL Toxic Granulation Platelet Estimate HIGH H Plt Morphology Comment NORMAL RBC Morph Comment PT INR APTT Fibrinogen Puncture Site Patient Temperature HCO3 Base Excess O2 Saturation ABG pH ABG pCO2 ABG pO2 ABG O2 Content ABG Carboxyhemoglobin ABG Methemoglobin Hemoglobin O2 Delivery Device Liter Flow Vent Setting Inspired O2 POC Sodium Sodium 144 145 POC Potassium Potassium 3.8 3.6 POC Chloride Chloride 109 H 108 H Carbon Dioxide 24.0 26.8 Anion Gap 11 10 POC BUN BUN 22 H 23 H Creatinine 0.66 0.74 POC Creatinine Estimated GFR 145 127 POC Glucose Random Glucose 113 H 104 Hemoglobin A1c Serum Osmolality Lactic Acid Calcium 8.4 L 8.5 Prot Corrected Calcium Phosphorus Magnesium Total Bilirubin 0.4 Direct Bilirubin Indirect Bilirubin AST 30 ALT 25 Alkaline Phosphatase 168 H Ammonia Total Creatine Kinase CK-MB (CK-2) CK-MB (CK-2) % Troponin I B-Natriuretic Peptide Total Protein 7.1 Albumin 2.4 L Prealbumin Procalcitonin TSH Free T4 TSH 3rd Generation Urine Color Urine Clarity Urine Turbidity Urine pH Ur Specific [place] Urine Protein Urine Glucose (UA) Urine Ketones Urine Occult Blood Urine Nitrate Urine Nitrite Urine Bilirubin Urine Urobilinogen Ur Leukocyte Esterase Urine RBC Urine WBC Ur Squamous Epith Cells Ur Transition Epith Cell Amorphous Sediment Urine Bacteria Hyaline Casts Urine Mucus Urine Yeast (Budding) Micro UA Comment Urine Culture Comments Urine Osmolality Ur Random Sodium CSF Volume (1) CSF Supernat Color (1) CSF Gross Blood (1) CSF Volume (2) CSF Supernat Color (2) CSF Gross Blood (2) CSF Volume (3) CSF Supernat Color (3) CSF Volume (4) CSF Supernat Color (4) CSF WBC (4) CSF RBC (4) CSF Neutrophils CSF Lymphocytes CSF Monocytes CSF Glucose CSF Total Protein Nasal Screen MRSA (PCR) Bronchial Other Cells BAL WBC BAL RBC BAL Neutrophils BAL Lymphocytes BAL Eosinophils BAL Plasma Cells BAL Histiocytes BAL Diff Comment Lavage Fld Tot Volume Lavage Tot WBC Count Stl C.difficile Tox PCR St C. diff Tox Epid 027 Vancomycin Trough Valproic Acid Levetiracetam Ethyl Alcohol 02/04/17 02/04/17 02/06/17 03:50 03:50 03:50 WBC 14.0 H RBC 3.91 L Hgb 11.6 L POC Hgb Hct 35.1 L POC Hct MCV 89.6 MCH 29.6 MCHC 33.0 RDW 15.2 Plt Count 315 D MPV 11.6 H Neut % (Auto) 78.3 H Lymph % (Auto) 12.9 [place] % (Auto) 5.3 Eos % (Auto) 3.2 Baso % (Auto) 0.3 Neut # (Auto) 11.0 H Lymph # (Auto) 1.8 [place] # (Auto) 0.7 Eos # (Auto) 0.4 Baso # (Auto) 0.0 CBC Comment DIFF FINAL WBC Differential Total Counted Neutrophils % (Manual) Band Neutrophils % Lymphocytes % Monocytes % Eosinophils % Basophils % Neutrophils # (Manual) Metamyelocytes Myelocytes Promyelocytes Nucleated RBCs Differential Comment Toxic Granulation Platelet Estimate Plt Morphology Comment RBC Morph Comment PT INR APTT Fibrinogen Puncture Site Patient Temperature HCO3 Base Excess O2 Saturation ABG pH ABG pCO2 ABG pO2 ABG O2 Content ABG Carboxyhemoglobin ABG Methemoglobin Hemoglobin O2 Delivery Device Liter Flow Vent Setting Inspired O2 POC Sodium Sodium 142 146 H POC Potassium Potassium 4.5 D 4.1 POC Chloride Chloride 108 H 112 H Carbon Dioxide 26.4 28.2 Anion Gap 8 6 POC BUN BUN 25 H 24 H Creatinine 0.85 0.64 POC Creatinine Estimated GFR 108 150 POC Glucose Random Glucose 109 H 107 H Hemoglobin A1c Serum Osmolality Lactic Acid Calcium 8.5 8.4 L Prot Corrected Calcium Phosphorus Magnesium 2.3 Total Bilirubin 0.3 Direct Bilirubin Indirect Bilirubin AST 32 ALT 25 Alkaline Phosphatase 142 H Ammonia Total Creatine Kinase CK-MB (CK-2) CK-MB (CK-2) % Troponin I B-Natriuretic Peptide Total Protein 7.0 Albumin 2.5 L Prealbumin Procalcitonin TSH Free T4 TSH 3rd Generation Urine Color Urine Clarity Urine Turbidity Urine pH Ur Specific [place] Urine Protein Urine Glucose (UA) Urine Ketones Urine Occult Blood Urine Nitrate Urine Nitrite Urine Bilirubin Urine Urobilinogen Ur Leukocyte Esterase Urine RBC Urine WBC Ur Squamous Epith Cells Ur Transition Epith Cell Amorphous Sediment Urine Bacteria Hyaline Casts Urine Mucus Urine Yeast (Budding) Micro UA Comment Urine Culture Comments Urine Osmolality Ur Random Sodium CSF Volume (1) CSF Supernat Color (1) CSF Gross Blood (1) CSF Volume (2) CSF Supernat Color (2) CSF Gross Blood (2) CSF Volume (3) CSF Supernat Color (3) CSF Volume (4) CSF Supernat Color (4) CSF WBC (4) CSF RBC (4) CSF Neutrophils CSF Lymphocytes CSF Monocytes CSF Glucose CSF Total Protein Nasal Screen MRSA (PCR) Bronchial Other Cells BAL WBC BAL RBC BAL Neutrophils BAL Lymphocytes BAL Eosinophils BAL Plasma Cells BAL Histiocytes BAL Diff Comment Lavage Fld Tot Volume Lavage Tot WBC Count Stl C.difficile Tox PCR St C. diff Tox Epid 027 Vancomycin Trough Valproic Acid Levetiracetam Ethyl Alcohol 02/06/17 02/08/17 02/08/17 03:50 10:06 10:06 WBC 9.9 8.7 RBC 3.86 L 4.21 L Hgb 11.1 L 12.3 L POC Hgb Hct 34.6 L 38.0 L POC Hct MCV 89.6 90.1 MCH 28.9 29.3 MCHC 32.2 32.5 RDW 14.8 15.0 Plt Count 259 229 MPV 10.3 10.5 Neut % (Auto) 71.0 H 71.9 H Lymph % (Auto) 15.4 14.6 [place] % (Auto) 6.0 6.3 Eos % (Auto) 7.2 H 6.8 H Baso % (Auto) 0.4 0.4 Neut # (Auto) 7.0 6.3 Lymph # (Auto) 1.5 1.3 [place] [place] # (Auto) 0.6 0.6 Eos # (Auto) 0.7 H 0.6 H Baso # (Auto) 0.0 0.0 CBC Comment DIFF FINAL DIFF FINAL WBC Differential Total Counted Neutrophils % (Manual) Band Neutrophils % Lymphocytes % Monocytes % Eosinophils % Basophils % Neutrophils # (Manual) Metamyelocytes Myelocytes Promyelocytes Nucleated RBCs Differential Comment Toxic Granulation Platelet Estimate Plt Morphology Comment RBC Morph Comment PT INR APTT Fibrinogen Puncture Site Patient Temperature HCO3 Base Excess O2 Saturation ABG pH ABG pCO2 ABG pO2 ABG O2 Content ABG Carboxyhemoglobin ABG Methemoglobin Hemoglobin O2 Delivery Device Liter Flow Vent Setting Inspired O2 POC Sodium Sodium 146 H POC Potassium Potassium 4.3 POC Chloride Chloride 109 H Carbon Dioxide 29.8 Anion Gap 7 POC BUN BUN 26 H Creatinine 0.71 POC Creatinine Estimated GFR 133 POC Glucose Random Glucose 118 H Hemoglobin A1c Serum Osmolality Lactic Acid Calcium 8.8 Prot Corrected Calcium Phosphorus Magnesium Total Bilirubin Direct Bilirubin Indirect Bilirubin AST ALT Alkaline Phosphatase Ammonia Total Creatine Kinase 67 CK-MB (CK-2) CK-MB (CK-2) % Troponin I LESS THAN 0.02 L B-Natriuretic Peptide Total Protein Albumin Prealbumin Procalcitonin TSH Free T4 TSH 3rd Generation Urine Color Urine Clarity Urine Turbidity Urine pH Ur Specific [place] Urine Protein Urine Glucose (UA) Urine Ketones Urine Occult Blood Urine Nitrate Urine Nitrite Urine Bilirubin Urine Urobilinogen Ur Leukocyte Esterase Urine RBC Urine WBC Ur Squamous Epith Cells Ur Transition Epith Cell Amorphous Sediment Urine Bacteria Hyaline Casts Urine Mucus Urine Yeast (Budding) Micro UA Comment Urine Culture Comments Urine Osmolality Ur Random Sodium CSF Volume (1) CSF Supernat Color (1) CSF Gross Blood (1) CSF Volume (2) CSF Supernat Color (2) CSF Gross Blood (2) CSF Volume (3) CSF Supernat Color (3) CSF Volume (4) CSF Supernat Color (4) CSF WBC (4) CSF RBC (4) CSF Neutrophils CSF Lymphocytes CSF Monocytes CSF Glucose CSF Total Protein Nasal Screen MRSA (PCR) Bronchial Other Cells BAL WBC BAL RBC BAL Neutrophils BAL Lymphocytes BAL Eosinophils BAL Plasma Cells BAL Histiocytes BAL Diff Comment Lavage Fld Tot Volume Lavage Tot WBC Count Stl C.difficile Tox PCR St C. diff Tox Epid 027 Vancomycin Trough Valproic Acid Levetiracetam Ethyl Alcohol 02/12/17 02/12/17 02/17/17 06:04 06:04 03:57 WBC 7.1 10.1 RBC 4.23 L 4.38 L Hgb 12.5 L 13.1 POC Hgb Hct 38.4 L 39.6 POC Hct MCV 90.7 90.4 MCH 29.5 29.9 MCHC 32.6 33.0 RDW 15.1 15.7 Plt Count 177 186 MPV 10.6 9.6 Neut % (Auto) 73.6 H Lymph % (Auto) 14.6 [place] % (Auto) 5.9 Eos % (Auto) 5.5 H Baso % (Auto) 0.4 Neut # (Auto) 7.4 Lymph # (Auto) 1.5 [place] # (Auto) 0.6 Eos # (Auto) 0.6 H Baso # (Auto) 0.0 CBC Comment DIFF FINAL WBC Differential Total Counted Neutrophils % (Manual) Band Neutrophils % Lymphocytes % Monocytes % Eosinophils % Basophils % Neutrophils # (Manual) Metamyelocytes Myelocytes Promyelocytes Nucleated RBCs Differential Comment Toxic Granulation Platelet Estimate Plt Morphology Comment RBC Morph Comment PT INR APTT Fibrinogen Puncture Site Patient Temperature HCO3 Base Excess O2 Saturation ABG pH ABG pCO2 ABG pO2 ABG O2 Content ABG Carboxyhemoglobin ABG Methemoglobin Hemoglobin O2 Delivery Device Liter Flow Vent Setting Inspired O2 POC Sodium Sodium 144 POC Potassium Potassium 3.8 POC Chloride Chloride 108 H Carbon Dioxide 27.9 Anion Gap 8 POC BUN BUN 20 H Creatinine 0.63 POC Creatinine Estimated GFR 153 POC Glucose Random Glucose 126 H Hemoglobin A1c Serum Osmolality Lactic Acid Calcium 8.7 Prot Corrected Calcium Phosphorus Magnesium Total Bilirubin Direct Bilirubin Indirect Bilirubin AST ALT Alkaline Phosphatase Ammonia Total Creatine Kinase CK-MB (CK-2) CK-MB (CK-2) % Troponin I B-Natriuretic Peptide Total Protein Albumin Prealbumin Procalcitonin TSH Free T4 TSH 3rd Generation Urine Color Urine Clarity Urine Turbidity Urine pH Ur Specific [place] Urine Protein Urine Glucose (UA) Urine Ketones Urine Occult Blood Urine Nitrate Urine Nitrite Urine Bilirubin Urine Urobilinogen Ur Leukocyte Esterase Urine RBC Urine WBC Ur Squamous Epith Cells Ur Transition Epith Cell Amorphous Sediment Urine Bacteria Hyaline Casts Urine Mucus Urine Yeast (Budding) Micro UA Comment Urine Culture Comments Urine Osmolality Ur Random Sodium CSF Volume (1) CSF Supernat Color (1) CSF Gross Blood (1) CSF Volume (2) CSF Supernat Color (2) CSF Gross Blood (2) CSF Volume (3) CSF Supernat Color (3) CSF Volume (4) CSF Supernat Color (4) CSF WBC (4) CSF RBC (4) CSF Neutrophils CSF Lymphocytes CSF Monocytes CSF Glucose CSF Total Protein Nasal Screen MRSA (PCR) Bronchial Other Cells BAL WBC BAL RBC BAL Neutrophils BAL Lymphocytes BAL Eosinophils BAL Plasma Cells BAL Histiocytes BAL Diff Comment Lavage Fld Tot Volume Lavage Tot WBC Count Stl C.difficile Tox PCR St C. diff Tox Epid 027 Vancomycin Trough Valproic Acid Levetiracetam Ethyl Alcohol 02/17/17 02/22/17 02/22/17 22:06 04:00 04:00 WBC 9.6 RBC 4.32 L Hgb 13.1 POC Hgb Hct 39.2 POC Hct MCV 90.8 MCH 30.4 MCHC 33.5 RDW 14.9 Plt Count 188 MPV 10.7 Neut % (Auto) 69.0 Lymph % (Auto) 16.7 [place] % (Auto) 5.3 Eos % (Auto) 8.2 H Baso % (Auto) 0.8 Neut # (Auto) 6.6 Lymph # (Auto) 1.6 [place] # (Auto) 0.5 Eos # (Auto) 0.8 H Baso # (Auto) 0.1 CBC Comment DIFF FINAL WBC Differential Total Counted Neutrophils % (Manual) Band Neutrophils % Lymphocytes % Monocytes % Eosinophils % Basophils % Neutrophils # (Manual) Metamyelocytes Myelocytes Promyelocytes Nucleated RBCs Differential Comment Toxic Granulation Platelet Estimate Plt Morphology Comment RBC Morph Comment PT INR APTT Fibrinogen Puncture Site Patient Temperature HCO3 Base Excess O2 Saturation ABG pH ABG pCO2 ABG pO2 ABG O2 Content ABG Carboxyhemoglobin ABG Methemoglobin Hemoglobin O2 Delivery Device Liter Flow Vent Setting Inspired O2 POC Sodium Sodium 144 POC Potassium Potassium 4.2 POC Chloride Chloride 110 H Carbon Dioxide 27.8 Anion Gap 6 POC BUN BUN 20 H Creatinine 0.62 POC Creatinine Estimated GFR 156 POC Glucose Random Glucose 95 Hemoglobin A1c Serum Osmolality Lactic Acid Calcium 8.7 Prot Corrected Calcium Phosphorus Magnesium Total Bilirubin Direct Bilirubin Indirect Bilirubin AST ALT Alkaline Phosphatase Ammonia Total Creatine Kinase CK-MB (CK-2) CK-MB (CK-2) % Troponin I B-Natriuretic Peptide Total Protein Albumin Prealbumin Procalcitonin TSH Free T4 TSH 3rd Generation Urine Color Urine Clarity Urine Turbidity Urine pH Ur Specific [place] Urine Protein Urine Glucose (UA) Urine Ketones Urine Occult Blood Urine Nitrate Urine Nitrite Urine Bilirubin Urine Urobilinogen Ur Leukocyte Esterase Urine RBC Urine WBC Ur Squamous Epith Cells Ur Transition Epith Cell Amorphous Sediment Urine Bacteria Hyaline Casts Urine Mucus Urine Yeast (Budding) Micro UA Comment Urine Culture Comments Urine Osmolality Ur Random Sodium CSF Volume (1) CSF Supernat Color (1) CSF Gross Blood (1) CSF Volume (2) CSF Supernat Color (2) CSF Gross Blood (2) CSF Volume (3) CSF Supernat Color (3) CSF Volume (4) CSF Supernat Color (4) CSF WBC (4) CSF RBC (4) CSF Neutrophils CSF Lymphocytes CSF Monocytes CSF Glucose CSF Total Protein Nasal Screen MRSA (PCR) Bronchial Other Cells BAL WBC BAL RBC BAL Neutrophils BAL Lymphocytes BAL Eosinophils BAL Plasma Cells BAL Histiocytes BAL Diff Comment Lavage Fld Tot Volume Lavage Tot WBC Count Stl C.difficile Tox PCR NEGATIVE St C. diff Tox Epid 027 PRESUMPTIVE NEGATIVE Vancomycin Trough Valproic Acid Levetiracetam Ethyl Alcohol 03/01/17 03/01/17 03/09/17 15:20 15:20 04:53 WBC 9.0 RBC 4.60 Hgb 13.7 POC Hgb Hct 41.8 POC Hct MCV 90.8 MCH 29.9 MCHC 32.9 RDW 15.0 Plt Count 207 MPV 10.5 Neut % (Auto) 70.0 Lymph % (Auto) 16.8 [place] % (Auto) 5.5 Eos % (Auto) 7.2 H Baso % (Auto) 0.5 Neut # (Auto) 6.3 Lymph # (Auto) 1.5 [place] # (Auto) 0.5 Eos # (Auto) 0.6 H Baso # (Auto) 0.0 CBC Comment DIFF FINAL WBC Differential Total Counted Neutrophils % (Manual) Band Neutrophils % Lymphocytes % Monocytes % Eosinophils % Basophils % Neutrophils # (Manual) Metamyelocytes Myelocytes Promyelocytes Nucleated RBCs Differential Comment Toxic Granulation Platelet Estimate Plt Morphology Comment RBC Morph Comment PT INR APTT Fibrinogen Puncture Site Patient Temperature HCO3 Base Excess O2 Saturation ABG pH ABG pCO2 ABG pO2 ABG O2 Content ABG Carboxyhemoglobin ABG Methemoglobin Hemoglobin O2 Delivery Device Liter Flow Vent Setting Inspired O2 POC Sodium Sodium 144 147 H POC Potassium Potassium 4.3 4.3 POC Chloride Chloride 109 H 114 H Carbon Dioxide 28.7 24.5 Anion Gap 6 9 POC BUN BUN 21 H 27 H Creatinine 0.62 0.58 L POC Creatinine Estimated GFR 156 168 POC Glucose Random Glucose 114 H 116 H Hemoglobin A1c Serum Osmolality Lactic Acid Calcium 8.8 8.7 Prot Corrected Calcium Phosphorus Magnesium Total Bilirubin Direct Bilirubin Indirect Bilirubin AST ALT Alkaline Phosphatase Ammonia Total Creatine Kinase CK-MB (CK-2) CK-MB (CK-2) % Troponin I B-Natriuretic Peptide Total Protein Albumin Prealbumin Procalcitonin TSH Free T4 TSH 3rd Generation Urine Color Urine Clarity Urine Turbidity Urine pH Ur Specific [place] Urine Protein Urine Glucose (UA) Urine Ketones Urine Occult Blood Urine Nitrate Urine Nitrite Urine Bilirubin Urine Urobilinogen Ur Leukocyte Esterase Urine RBC Urine WBC Ur Squamous Epith Cells Ur Transition Epith Cell Amorphous Sediment Urine Bacteria Hyaline Casts Urine Mucus Urine Yeast (Budding) Micro UA Comment Urine Culture Comments Urine Osmolality Ur Random Sodium CSF Volume (1) CSF Supernat Color (1) CSF Gross Blood (1) CSF Volume (2) CSF Supernat Color (2) CSF Gross Blood (2) CSF Volume (3) CSF Supernat Color (3) CSF Volume (4) CSF Supernat Color (4) CSF WBC (4) CSF RBC (4) CSF Neutrophils CSF Lymphocytes CSF Monocytes CSF Glucose CSF Total Protein Nasal Screen MRSA (PCR) Bronchial Other Cells BAL WBC BAL RBC BAL Neutrophils BAL Lymphocytes BAL Eosinophils BAL Plasma Cells BAL Histiocytes BAL Diff Comment Lavage Fld Tot Volume Lavage Tot WBC Count Stl C.difficile Tox PCR St C. diff Tox Epid 027 Vancomycin Trough Valproic Acid Levetiracetam Ethyl Alcohol 03/09/17 03/16/17 03/16/17 04:53 03:58 03:58 WBC 13.1 H 11.1 H RBC 4.94 4.64 Hgb 15.0 14.0 POC Hgb Hct 45.7 42.5 POC Hct MCV 92.7 91.7 MCH 30.3 30.3 MCHC 32.7 33.0 RDW 15.1 15.0 Plt Count 220 198 MPV 10.4 10.5 Neut % (Auto) 72.0 H 71.5 H Lymph % (Auto) 14.7 15.4 [place] % (Auto) 6.3 4.8 Eos % (Auto) 6.5 H 8.0 H Baso % (Auto) 0.5 0.3 Neut # (Auto) 9.4 H 7.9 H Lymph # (Auto) 1.9 1.7 [place] # (Auto) 0.8 0.5 Eos # (Auto) 0.8 H 0.9 H Baso # (Auto) 0.1 0.0 CBC Comment DIFF FINAL DIFF FINAL WBC Differential Total Counted Neutrophils % (Manual) Band Neutrophils % Lymphocytes % Monocytes % Eosinophils % Basophils % Neutrophils # (Manual) Metamyelocytes Myelocytes Promyelocytes Nucleated RBCs Differential Comment Toxic Granulation Platelet Estimate Plt Morphology Comment RBC Morph Comment PT INR APTT Fibrinogen Puncture Site Patient Temperature HCO3 Base Excess O2 Saturation ABG pH ABG pCO2 ABG pO2 ABG O2 Content ABG Carboxyhemoglobin ABG Methemoglobin Hemoglobin O2 Delivery Device Liter Flow Vent Setting Inspired O2 POC Sodium Sodium 144 POC Potassium Potassium 3.9 POC Chloride Chloride 112 H Carbon Dioxide 26.5 Anion Gap 6 POC BUN BUN 22 H Creatinine 0.43 L POC Creatinine Estimated GFR 237 POC Glucose Random Glucose 121 H Hemoglobin A1c Serum Osmolality Lactic Acid Calcium 8.7 Prot Corrected Calcium Phosphorus Magnesium Total Bilirubin Direct Bilirubin Indirect Bilirubin AST ALT Alkaline Phosphatase Ammonia Total Creatine Kinase CK-MB (CK-2) CK-MB (CK-2) % Troponin I B-Natriuretic Peptide Total Protein Albumin Prealbumin Procalcitonin TSH Free T4 TSH 3rd Generation Urine Color Urine Clarity Urine Turbidity Urine pH Ur Specific [place] Urine Protein Urine Glucose (UA) Urine Ketones Urine Occult Blood Urine Nitrate Urine Nitrite Urine Bilirubin Urine Urobilinogen Ur Leukocyte Esterase Urine RBC Urine WBC Ur Squamous Epith Cells Ur Transition Epith Cell Amorphous Sediment Urine Bacteria Hyaline Casts Urine Mucus Urine Yeast (Budding) Micro UA Comment Urine Culture Comments Urine Osmolality Ur Random Sodium CSF Volume (1) CSF Supernat Color (1) CSF Gross Blood (1) CSF Volume (2) CSF Supernat Color (2) CSF Gross Blood (2) CSF Volume (3) CSF Supernat Color (3) CSF Volume (4) CSF Supernat Color (4) CSF WBC (4) CSF RBC (4) CSF Neutrophils CSF Lymphocytes CSF Monocytes CSF Glucose CSF Total Protein Nasal Screen MRSA (PCR) Bronchial Other Cells BAL WBC BAL RBC BAL Neutrophils BAL Lymphocytes BAL Eosinophils BAL Plasma Cells BAL Histiocytes BAL Diff Comment Lavage Fld Tot Volume Lavage Tot WBC Count Stl C.difficile Tox PCR St C. diff Tox Epid 027 Vancomycin Trough Valproic Acid Levetiracetam Ethyl Alcohol 03/19/17 03/20/17 03/20/17 11:30 13:50 13:55 WBC 19.1 H RBC 4.42 L Hgb 13.5 POC Hgb Hct 40.5 POC Hct MCV 91.7 MCH 30.6 MCHC 33.3 RDW 14.9 Plt Count 173 MPV 10.7 Neut % (Auto) 81.7 H Lymph % (Auto) 8.3 L [place] % (Auto) 6.8 Eos % (Auto) 2.6 Baso % (Auto) 0.6 Neut # (Auto) 15.6 H Lymph # (Auto) 1.6 [place] # (Auto) 1.3 H Eos # (Auto) 0.5 H Baso # (Auto) 0.1 CBC Comment DIFF FINAL WBC Differential Total Counted Neutrophils % (Manual) Band Neutrophils % Lymphocytes % Monocytes % Eosinophils % Basophils % Neutrophils # (Manual) Metamyelocytes Myelocytes Promyelocytes Nucleated RBCs Differential Comment Toxic Granulation Platelet Estimate Plt Morphology Comment RBC Morph Comment PT INR APTT Fibrinogen Puncture Site Patient Temperature HCO3 Base Excess O2 Saturation ABG pH ABG pCO2 ABG pO2 ABG O2 Content ABG Carboxyhemoglobin ABG Methemoglobin Hemoglobin O2 Delivery Device Liter Flow Vent Setting Inspired O2 POC Sodium Sodium POC Potassium Potassium POC Chloride Chloride Carbon Dioxide Anion Gap POC BUN BUN Creatinine POC Creatinine Estimated GFR POC Glucose Random Glucose Hemoglobin A1c Serum Osmolality Lactic Acid 1.4 Calcium Prot Corrected Calcium Phosphorus Magnesium Total Bilirubin Direct Bilirubin Indirect Bilirubin AST ALT Alkaline Phosphatase Ammonia Total Creatine Kinase CK-MB (CK-2) CK-MB (CK-2) % Troponin I B-Natriuretic Peptide Total Protein Albumin Prealbumin Procalcitonin TSH Free T4 TSH 3rd Generation Urine Color Urine Clarity Urine Turbidity Urine pH Ur Specific [place] Urine Protein Urine Glucose (UA) Urine Ketones Urine Occult Blood Urine Nitrate Urine Nitrite Urine Bilirubin Urine Urobilinogen Ur Leukocyte Esterase Urine RBC Urine WBC Ur Squamous Epith Cells Ur Transition Epith Cell Amorphous Sediment Urine Bacteria Hyaline Casts Urine Mucus Urine Yeast (Budding) Micro UA Comment Urine Culture Comments Urine Osmolality Ur Random Sodium CSF Volume (1) CSF Supernat Color (1) CSF Gross Blood (1) CSF Volume (2) CSF Supernat Color (2) CSF Gross Blood (2) CSF Volume (3) CSF Supernat Color (3) CSF Volume (4) CSF Supernat Color (4) CSF WBC (4) CSF RBC (4) CSF Neutrophils CSF Lymphocytes CSF Monocytes CSF Glucose CSF Total Protein Nasal Screen MRSA (PCR) Bronchial Other Cells BAL WBC BAL RBC BAL Neutrophils BAL Lymphocytes BAL Eosinophils BAL Plasma Cells BAL Histiocytes BAL Diff Comment Lavage Fld Tot Volume Lavage Tot WBC Count Stl C.difficile Tox PCR NEGATIVE St C. diff Tox Epid 027 PRESUMPTIVE NEGATIVE Vancomycin Trough Valproic Acid Levetiracetam Ethyl Alcohol 03/20/17 03/24/17 03/24/17 13:55 03:38 03:38 WBC 18.7 H 9.6 RBC 4.38 L 4.58 Hgb 13.3 13.8 POC Hgb Hct 40.4 42.3 POC Hct MCV 92.3 92.5 MCH 30.4 30.1 MCHC 32.9 32.5 RDW 14.6 14.6 Plt Count 171 216 MPV 11.1 H 10.6 Neut % (Auto) 75.7 H 70.1 H Lymph % (Auto) 11.9 19.2 [place] % (Auto) 6.7 6.2 Eos % (Auto) 5.1 H 3.7 Baso % (Auto) 0.6 0.8 Neut # (Auto) 14.2 H 6.7 Lymph # (Auto) 2.2 1.8 [place] # (Auto) 1.2 H 0.6 Eos # (Auto) 0.9 H 0.4 Baso # (Auto) 0.1 0.1 CBC Comment AUTO DIFF DIFF FINAL WBC Differential Total Counted Neutrophils % (Manual) Band Neutrophils % Lymphocytes % Monocytes % Eosinophils % Basophils % Neutrophils # (Manual) Metamyelocytes Myelocytes Promyelocytes Nucleated RBCs Differential Comment AUTO DIFF CONFIRMED Toxic Granulation Platelet Estimate NORMAL Plt Morphology Comment NORMAL RBC Morph Comment NORMAL PT INR APTT Fibrinogen Puncture Site Patient Temperature HCO3 Base Excess O2 Saturation ABG pH ABG pCO2 ABG pO2 ABG O2 Content ABG Carboxyhemoglobin ABG Methemoglobin Hemoglobin O2 Delivery Device Liter Flow Vent Setting Inspired O2 POC Sodium Sodium 146 H POC Potassium Potassium 4.2 POC Chloride Chloride 110 H Carbon Dioxide 26.4 Anion Gap 10 POC BUN BUN 22 H Creatinine 0.49 L POC Creatinine Estimated GFR 204 POC Glucose Random Glucose 111 H Hemoglobin A1c Serum Osmolality Lactic Acid Calcium 8.9 Prot Corrected Calcium Phosphorus Magnesium Total Bilirubin Direct Bilirubin Indirect Bilirubin AST ALT Alkaline Phosphatase Ammonia Total Creatine Kinase CK-MB (CK-2) CK-MB (CK-2) % Troponin I B-Natriuretic Peptide Total Protein Albumin Prealbumin Procalcitonin TSH Free T4 TSH 3rd Generation Urine Color Urine Clarity Urine Turbidity Urine pH Ur Specific [place] Urine Protein Urine Glucose (UA) Urine Ketones Urine Occult Blood Urine Nitrate Urine Nitrite Urine Bilirubin Urine Urobilinogen Ur Leukocyte Esterase Urine RBC Urine WBC Ur Squamous Epith Cells Ur Transition Epith Cell Amorphous Sediment Urine Bacteria Hyaline Casts Urine Mucus Urine Yeast (Budding) Micro UA Comment Urine Culture Comments Urine Osmolality Ur Random Sodium CSF Volume (1) CSF Supernat Color (1) CSF Gross Blood (1) CSF Volume (2) CSF Supernat Color (2) CSF Gross Blood (2) CSF Volume (3) CSF Supernat Color (3) CSF Volume (4) CSF Supernat Color (4) CSF WBC (4) CSF RBC (4) CSF Neutrophils CSF Lymphocytes CSF Monocytes CSF Glucose CSF Total Protein Nasal Screen MRSA (PCR) Bronchial Other Cells BAL WBC BAL RBC BAL Neutrophils BAL Lymphocytes BAL Eosinophils BAL Plasma Cells BAL Histiocytes BAL Diff Comment Lavage Fld Tot Volume Lavage Tot WBC Count Stl C.difficile Tox PCR St C. diff Tox Epid 027 Vancomycin Trough Valproic Acid Levetiracetam Ethyl Alcohol 03/29/17 04/03/17 04/03/17 14:30 04:23 04:23 WBC 13.8 H RBC 4.26 L Hgb 13.0 POC Hgb Hct 38.7 L POC Hct MCV 90.8 MCH 30.5 MCHC 33.6 RDW 14.5 Plt Count 214 MPV 10.5 Neut % (Auto) 77.5 H Lymph % (Auto) 12.6 [place] % (Auto) 5.6 Eos % (Auto) 4.0 Baso % (Auto) 0.3 Neut # (Auto) 10.7 H Lymph # (Auto) 1.7 [place] # (Auto) 0.8 Eos # (Auto) 0.6 H Baso # (Auto) 0.0 CBC Comment DIFF FINAL WBC Differential Total Counted Neutrophils % (Manual) Band Neutrophils % Lymphocytes % Monocytes % Eosinophils % Basophils % Neutrophils # (Manual) Metamyelocytes Myelocytes Promyelocytes Nucleated RBCs Differential Comment Toxic Granulation Platelet Estimate Plt Morphology Comment RBC Morph Comment PT INR APTT Fibrinogen Puncture Site Patient Temperature HCO3 Base Excess O2 Saturation ABG pH ABG pCO2 ABG pO2 ABG O2 Content ABG Carboxyhemoglobin ABG Methemoglobin Hemoglobin O2 Delivery Device Liter Flow Vent Setting Inspired O2 POC Sodium Sodium 144 POC Potassium Potassium 4.0 POC Chloride Chloride 111 H Carbon Dioxide 27.9 Anion Gap 5 POC BUN BUN 21 H Creatinine 0.40 L POC Creatinine Estimated GFR 258 POC Glucose Random Glucose 119 H Hemoglobin A1c Serum Osmolality Lactic Acid Calcium 8.5 Prot Corrected Calcium Phosphorus Magnesium Total Bilirubin Direct Bilirubin Indirect Bilirubin AST ALT Alkaline Phosphatase Ammonia Total Creatine Kinase CK-MB (CK-2) CK-MB (CK-2) % Troponin I B-Natriuretic Peptide Total Protein Albumin Prealbumin Procalcitonin TSH Free T4 TSH 3rd Generation Urine Color Urine Clarity Urine Turbidity Urine pH Ur Specific [place] Urine Protein Urine Glucose (UA) Urine Ketones Urine Occult Blood Urine Nitrate Urine Nitrite Urine Bilirubin Urine Urobilinogen Ur Leukocyte Esterase Urine RBC Urine WBC Ur Squamous Epith Cells Ur Transition Epith Cell Amorphous Sediment Urine Bacteria Hyaline Casts Urine Mucus Urine Yeast (Budding) Micro UA Comment Urine Culture Comments Urine Osmolality Ur Random Sodium CSF Volume (1) CSF Supernat Color (1) CSF Gross Blood (1) CSF Volume (2) CSF Supernat Color (2) CSF Gross Blood (2) CSF Volume (3) CSF Supernat Color (3) CSF Volume (4) CSF Supernat Color (4) CSF WBC (4) CSF RBC (4) CSF Neutrophils CSF Lymphocytes CSF Monocytes CSF Glucose CSF Total Protein Nasal Screen MRSA (PCR) Bronchial Other Cells BAL WBC BAL RBC BAL Neutrophils BAL Lymphocytes BAL Eosinophils BAL Plasma Cells BAL Histiocytes BAL Diff Comment Lavage Fld Tot Volume Lavage Tot WBC Count Stl C.difficile Tox PCR NEGATIVE St C. diff Tox Epid 027 PRESUMPTIVE NEGATIVE Vancomycin Trough Valproic Acid Levetiracetam Ethyl Alcohol 04/06/17 04/06/17 04/07/17 15:55 15:55 05:00 WBC 11.5 H RBC 4.20 L Hgb 13.1 POC Hgb Hct 37.9 L POC Hct MCV 90.1 MCH 31.1 MCHC 34.5 RDW 14.4 Plt Count 243 MPV 10.5 Neut % (Auto) 77.3 H Lymph % (Auto) 13.6 [place] % (Auto) 7.3 Eos % (Auto) 1.4 Baso % (Auto) 0.4 Neut # (Auto) 8.9 H Lymph # (Auto) 1.6 [place] # (Auto) 0.8 Eos # (Auto) 0.2 Baso # (Auto) 0.1 CBC Comment DIFF FINAL WBC Differential Total Counted Neutrophils % (Manual) Band Neutrophils % Lymphocytes % Monocytes % Eosinophils % Basophils % Neutrophils # (Manual) Metamyelocytes Myelocytes Promyelocytes Nucleated RBCs Differential Comment Toxic Granulation Platelet Estimate Plt Morphology Comment RBC Morph Comment PT INR APTT Fibrinogen Puncture Site Patient Temperature HCO3 Base Excess O2 Saturation ABG pH ABG pCO2 ABG pO2 ABG O2 Content ABG Carboxyhemoglobin ABG Methemoglobin Hemoglobin O2 Delivery Device Liter Flow Vent Setting Inspired O2 POC Sodium Sodium 142 POC Potassium Potassium 3.7 POC Chloride Chloride 108 H Carbon Dioxide 27.1 Anion Gap 7 POC BUN BUN 21 H Creatinine 0.48 L POC Creatinine Estimated GFR 208 POC Glucose Random Glucose 121 H Hemoglobin A1c Serum Osmolality Lactic Acid Calcium 8.6 Prot Corrected Calcium Phosphorus 2.9 Magnesium 1.9 Total Bilirubin Direct Bilirubin Indirect Bilirubin AST ALT Alkaline Phosphatase Ammonia Total Creatine Kinase CK-MB (CK-2) CK-MB (CK-2) % Troponin I B-Natriuretic Peptide Total Protein Albumin Prealbumin Procalcitonin TSH Free T4 TSH 3rd Generation Urine Color YELLOW Urine Clarity Urine Turbidity HAZY H Urine pH 6.0 Ur Specific [place] 1.021 Urine Protein TRACE Urine Glucose (UA) NEG Urine Ketones NEG Urine Occult Blood NEG Urine Nitrate Urine Nitrite NEG Urine Bilirubin NEG Urine Urobilinogen LESS THAN 2.0 Ur Leukocyte Esterase NEG Urine RBC 1 Urine WBC 3 Ur Squamous Epith Cells Ur Transition Epith Cell <1 Amorphous Sediment RARE Urine Bacteria RARE H Hyaline Casts Urine Mucus FEW H Urine Yeast (Budding) Micro UA Comment CATH-CULTURE IND Urine Culture Comments Urine Osmolality Ur Random Sodium CSF Volume (1) CSF Supernat Color (1) CSF Gross Blood (1) CSF Volume (2) CSF Supernat Color (2) CSF Gross Blood (2) CSF Volume (3) CSF Supernat Color (3) CSF Volume (4) CSF Supernat Color (4) CSF WBC (4) CSF RBC (4) CSF Neutrophils CSF Lymphocytes CSF Monocytes CSF Glucose CSF Total Protein Nasal Screen MRSA (PCR) Bronchial Other Cells BAL WBC BAL RBC BAL Neutrophils BAL Lymphocytes BAL Eosinophils BAL Plasma Cells BAL Histiocytes BAL Diff Comment Lavage Fld Tot Volume Lavage Tot WBC Count Stl C.difficile Tox PCR St C. diff Tox Epid 027 Vancomycin Trough Valproic Acid Levetiracetam Ethyl Alcohol 04/14/17 04/14/17 04/14/17 08:40 08:40 14:40 WBC 10.9 RBC 4.29 L Hgb 12.9 L POC Hgb Hct 38.4 L POC Hct MCV 89.3 MCH 30.1 MCHC 33.7 RDW 14.0 Plt Count 290 MPV 9.8 Neut % (Auto) 70.5 H Lymph % (Auto) 16.9 [place] % (Auto) 6.4 Eos % (Auto) 5.5 H Baso % (Auto) 0.7 Neut # (Auto) 7.7 Lymph # (Auto) 1.8 [place] # (Auto) 0.7 Eos # (Auto) 0.6 H Baso # (Auto) 0.1 CBC Comment DIFF FINAL WBC Differential Total Counted Neutrophils % (Manual) Band Neutrophils % Lymphocytes % Monocytes % Eosinophils % Basophils % Neutrophils # (Manual) Metamyelocytes Myelocytes Promyelocytes Nucleated RBCs Differential Comment Toxic Granulation Platelet Estimate Plt Morphology Comment RBC Morph Comment PT INR APTT Fibrinogen Puncture Site Patient Temperature HCO3 Base Excess O2 Saturation ABG pH ABG pCO2 ABG pO2 ABG O2 Content ABG Carboxyhemoglobin ABG Methemoglobin Hemoglobin O2 Delivery Device Liter Flow Vent Setting Inspired O2 POC Sodium Sodium 141 POC Potassium Potassium 5.2 H POC Chloride Chloride 108 H Carbon Dioxide 26.2 Anion Gap 7 POC BUN BUN 20 H Creatinine 0.46 L POC Creatinine Estimated GFR 218 POC Glucose Random Glucose 110 H Hemoglobin A1c Serum Osmolality Lactic Acid Calcium 8.8 Prot Corrected Calcium Phosphorus Magnesium Total Bilirubin Direct Bilirubin Indirect Bilirubin AST ALT Alkaline Phosphatase Ammonia Total Creatine Kinase CK-MB (CK-2) CK-MB (CK-2) % Troponin I B-Natriuretic Peptide LESS THAN 2 Total Protein Albumin Prealbumin Procalcitonin TSH Free T4 TSH 3rd Generation Urine Color Urine Clarity Urine Turbidity Urine pH Ur Specific [place] Urine Protein Urine Glucose (UA) Urine Ketones Urine Occult Blood Urine Nitrate Urine Nitrite Urine Bilirubin Urine Urobilinogen Ur Leukocyte Esterase Urine RBC Urine WBC Ur Squamous Epith Cells Ur Transition Epith Cell Amorphous Sediment Urine Bacteria Hyaline Casts Urine Mucus Urine Yeast (Budding) Micro UA Comment Urine Culture Comments Urine Osmolality Ur Random Sodium CSF Volume (1) CSF Supernat Color (1) CSF Gross Blood (1) CSF Volume (2) CSF Supernat Color (2) CSF Gross Blood (2) CSF Volume (3) CSF Supernat Color (3) CSF Volume (4) CSF Supernat Color (4) CSF WBC (4) CSF RBC (4) CSF Neutrophils CSF Lymphocytes CSF Monocytes CSF Glucose CSF Total Protein Nasal Screen MRSA (PCR) Bronchial Other Cells BAL WBC BAL RBC BAL Neutrophils BAL Lymphocytes BAL Eosinophils BAL Plasma Cells BAL Histiocytes BAL Diff Comment Lavage Fld Tot Volume Lavage Tot WBC Count Stl C.difficile Tox PCR St C. diff Tox Epid 027 Vancomycin Trough Valproic Acid Levetiracetam Ethyl Alcohol 04/17/17 04/17/17 04/25/17 04:30 04:50 05:01 WBC 11.0 RBC 4.08 L Hgb 12.0 L POC Hgb Hct 36.3 L POC Hct MCV 89.0 MCH 29.5 MCHC 33.1 RDW 14.4 Plt Count 255 MPV 9.6 Neut % (Auto) 74.5 H Lymph % (Auto) 12.1 [place] % (Auto) 5.7 Eos % (Auto) 7.3 H Baso % (Auto) 0.4 Neut # (Auto) 8.2 H Lymph # (Auto) 1.3 [place] # (Auto) 0.6 Eos # (Auto) 0.8 H Baso # (Auto) 0.0 CBC Comment DIFF FINAL WBC Differential Total Counted Neutrophils % (Manual) Band Neutrophils % Lymphocytes % Monocytes % Eosinophils % Basophils % Neutrophils # (Manual) Metamyelocytes Myelocytes Promyelocytes Nucleated RBCs Differential Comment Toxic Granulation Platelet Estimate Plt Morphology Comment RBC Morph Comment PT INR APTT Fibrinogen Puncture Site Patient Temperature HCO3 Base Excess O2 Saturation ABG pH ABG pCO2 ABG pO2 ABG O2 Content ABG Carboxyhemoglobin ABG Methemoglobin Hemoglobin O2 Delivery Device Liter Flow Vent Setting Inspired O2 POC Sodium Sodium 143 138 POC Potassium Potassium 3.5 3.9 POC Chloride Chloride 110 H 104 Carbon Dioxide 26.6 27.8 Anion Gap 6 6 POC BUN BUN 15 17 Creatinine 0.40 L 0.44 L POC Creatinine Estimated GFR 256 229 POC Glucose Random Glucose 128 H 135 H Hemoglobin A1c Serum Osmolality Lactic Acid Calcium 8.8 9.1 Prot Corrected Calcium Phosphorus Magnesium Total Bilirubin Direct Bilirubin Indirect Bilirubin AST ALT Alkaline Phosphatase Ammonia Total Creatine Kinase CK-MB (CK-2) CK-MB (CK-2) % Troponin I B-Natriuretic Peptide Total Protein Albumin Prealbumin Procalcitonin TSH Free T4 TSH 3rd Generation Urine Color Urine Clarity Urine Turbidity Urine pH Ur Specific [place] Urine Protein Urine Glucose (UA) Urine Ketones Urine Occult Blood Urine Nitrate Urine Nitrite Urine Bilirubin Urine Urobilinogen Ur Leukocyte Esterase Urine RBC Urine WBC Ur Squamous Epith Cells Ur Transition Epith Cell Amorphous Sediment Urine Bacteria Hyaline Casts Urine Mucus Urine Yeast (Budding) Micro UA Comment Urine Culture Comments Urine Osmolality Ur Random Sodium CSF Volume (1) CSF Supernat Color (1) CSF Gross Blood (1) CSF Volume (2) CSF Supernat Color (2) CSF Gross Blood (2) CSF Volume (3) CSF Supernat Color (3) CSF Volume (4) CSF Supernat Color (4) CSF WBC (4) CSF RBC (4) CSF Neutrophils CSF Lymphocytes CSF Monocytes CSF Glucose CSF Total Protein Nasal Screen MRSA (PCR) Bronchial Other Cells BAL WBC BAL RBC BAL Neutrophils BAL Lymphocytes BAL Eosinophils BAL Plasma Cells BAL Histiocytes BAL Diff Comment Lavage Fld Tot Volume Lavage Tot WBC Count Stl C.difficile Tox PCR St C. diff Tox Epid 027 Vancomycin Trough Valproic Acid Levetiracetam Ethyl Alcohol 04/25/17 04/28/17 04/28/17 05:01 07:12 07:12 WBC 9.6 RBC 4.24 L Hgb 12.6 L POC Hgb Hct 37.5 L POC Hct MCV 88.4 MCH 29.6 MCHC 33.5 RDW 13.7 Plt Count 282 MPV 9.8 Neut % (Auto) 73.6 H Lymph % (Auto) 14.9 [place] % (Auto) 7.6 Eos % (Auto) 3.0 Baso % (Auto) 0.9 Neut # (Auto) 7.0 Lymph # (Auto) 1.4 [place] # (Auto) 0.7 Eos # (Auto) 0.3 Baso # (Auto) 0.1 CBC Comment DIFF FINAL WBC Differential Total Counted Neutrophils % (Manual) Band Neutrophils % Lymphocytes % Monocytes % Eosinophils % Basophils % Neutrophils # (Manual) Metamyelocytes Myelocytes Promyelocytes Nucleated RBCs Differential Comment Toxic Granulation Platelet Estimate Plt Morphology Comment RBC Morph Comment PT INR APTT Fibrinogen Puncture Site Patient Temperature HCO3 Base Excess O2 Saturation ABG pH ABG pCO2 ABG pO2 ABG O2 Content ABG Carboxyhemoglobin ABG Methemoglobin Hemoglobin O2 Delivery Device Liter Flow Vent Setting Inspired O2 POC Sodium Sodium POC Potassium Potassium POC Chloride Chloride Carbon Dioxide Anion Gap POC BUN BUN Creatinine POC Creatinine Estimated GFR POC Glucose Random Glucose Hemoglobin A1c Serum Osmolality Lactic Acid Calcium Prot Corrected Calcium Phosphorus Magnesium Total Bilirubin Direct Bilirubin Indirect Bilirubin AST ALT Alkaline Phosphatase Ammonia Total Creatine Kinase CK-MB (CK-2) CK-MB (CK-2) % Troponin I B-Natriuretic Peptide Total Protein Albumin 2.6 L Prealbumin 19 L Procalcitonin TSH Free T4 TSH 3rd Generation Urine Color Urine Clarity Urine Turbidity Urine pH Ur Specific [place] Urine Protein Urine Glucose (UA) Urine Ketones Urine Occult Blood Urine Nitrate Urine Nitrite Urine Bilirubin Urine Urobilinogen Ur Leukocyte Esterase Urine RBC Urine WBC Ur Squamous Epith Cells Ur Transition Epith Cell Amorphous Sediment Urine Bacteria Hyaline Casts Urine Mucus Urine Yeast (Budding) Micro UA Comment Urine Culture Comments Urine Osmolality Ur Random Sodium CSF Volume (1) CSF Supernat Color (1) CSF Gross Blood (1) CSF Volume (2) CSF Supernat Color (2) CSF Gross Blood (2) CSF Volume (3) CSF Supernat Color (3) CSF Volume (4) CSF Supernat Color (4) CSF WBC (4) CSF RBC (4) CSF Neutrophils CSF Lymphocytes CSF Monocytes CSF Glucose CSF Total Protein Nasal Screen MRSA (PCR) Bronchial Other Cells BAL WBC BAL RBC BAL Neutrophils BAL Lymphocytes BAL Eosinophils BAL Plasma Cells BAL Histiocytes BAL Diff Comment Lavage Fld Tot Volume Lavage Tot WBC Count Stl C.difficile Tox PCR St C. diff Tox Epid 027 Vancomycin Trough Valproic Acid Levetiracetam Ethyl Alcohol 05/01/17 05/03/17 05/03/17 08:20 13:09 13:09 WBC 12.0 H RBC 4.19 L Hgb 12.1 L POC Hgb Hct 35.9 L POC Hct MCV 85.6 MCH 28.9 MCHC 33.7 RDW 14.3 Plt Count 359 MPV 9.7 Neut % (Auto) 76.4 H Lymph % (Auto) 14.0 [place] % (Auto) 5.9 Eos % (Auto) 3.0 Baso % (Auto) 0.7 Neut # (Auto) 9.2 H Lymph # (Auto) 1.7 [place] # (Auto) 0.7 Eos # (Auto) 0.4 Baso # (Auto) 0.1 CBC Comment DIFF FINAL WBC Differential Total Counted Neutrophils % (Manual) Band Neutrophils % Lymphocytes % Monocytes % Eosinophils % Basophils % Neutrophils # (Manual) Metamyelocytes Myelocytes Promyelocytes Nucleated RBCs Differential Comment Toxic Granulation Platelet Estimate Plt Morphology Comment RBC Morph Comment PT INR APTT Fibrinogen Puncture Site Patient Temperature HCO3 Base Excess O2 Saturation ABG pH ABG pCO2 ABG pO2 ABG O2 Content ABG Carboxyhemoglobin ABG Methemoglobin Hemoglobin O2 Delivery Device Liter Flow Vent Setting Inspired O2 POC Sodium Sodium 139 POC Potassium Potassium 4.2 POC Chloride Chloride 104 Carbon Dioxide 27.5 Anion Gap 8 POC BUN BUN 28 H Creatinine 0.35 L POC Creatinine Estimated GFR 299 POC Glucose Random Glucose 105 Hemoglobin A1c Serum Osmolality Lactic Acid Calcium 9.1 Prot Corrected Calcium Phosphorus Magnesium Total Bilirubin 0.2 Direct Bilirubin Indirect Bilirubin AST 45 H ALT 71 Alkaline Phosphatase 118 H Ammonia Total Creatine Kinase CK-MB (CK-2) CK-MB (CK-2) % Troponin I B-Natriuretic Peptide Total Protein 7.8 Albumin 2.7 L Prealbumin Procalcitonin 0.10 H TSH Free T4 TSH 3rd Generation Urine Color Urine Clarity Urine Turbidity Urine pH Ur Specific [place] Urine Protein Urine Glucose (UA) Urine Ketones Urine Occult Blood Urine Nitrate Urine Nitrite Urine Bilirubin Urine Urobilinogen Ur Leukocyte Esterase Urine RBC Urine WBC Ur Squamous Epith Cells Ur Transition Epith Cell Amorphous Sediment Urine Bacteria Hyaline Casts Urine Mucus Urine Yeast (Budding) Micro UA Comment Urine Culture Comments Urine Osmolality Ur Random Sodium CSF Volume (1) CSF Supernat Color (1) CSF Gross Blood (1) CSF Volume (2) CSF Supernat Color (2) CSF Gross Blood (2) CSF Volume (3) CSF Supernat Color (3) CSF Volume (4) CSF Supernat Color (4) CSF WBC (4) CSF RBC (4) CSF Neutrophils CSF Lymphocytes CSF Monocytes CSF Glucose CSF Total Protein Nasal Screen MRSA (PCR) Bronchial Other Cells BAL WBC BAL RBC BAL Neutrophils BAL Lymphocytes BAL Eosinophils BAL Plasma Cells BAL Histiocytes BAL Diff Comment Lavage Fld Tot Volume Lavage Tot WBC Count Stl C.difficile Tox PCR St C. diff Tox Epid 027 Vancomycin Trough Valproic Acid Levetiracetam Ethyl Alcohol 05/03/17 05/06/17 05/06/17 13:09 05:00 10:31 WBC 15.3 H RBC 4.12 L Hgb 11.8 L POC Hgb Hct 35.5 L POC Hct MCV 86.2 MCH 28.6 MCHC 33.1 RDW 14.3 Plt Count 329 MPV 9.8 Neut % (Auto) 78.3 H Lymph % (Auto) 12.2 [place] % (Auto) 6.3 Eos % (Auto) 2.3 Baso % (Auto) 0.9 Neut # (Auto) 12.0 H Lymph # (Auto) 1.9 [place] # (Auto) 1.0 H Eos # (Auto) 0.4 Baso # (Auto) 0.1 CBC Comment DIFF FINAL WBC Differential Total Counted Neutrophils % (Manual) Band Neutrophils % Lymphocytes % Monocytes % Eosinophils % Basophils % Neutrophils # (Manual) Metamyelocytes Myelocytes Promyelocytes Nucleated RBCs Differential Comment Toxic Granulation Platelet Estimate Plt Morphology Comment RBC Morph Comment PT INR APTT Fibrinogen Puncture Site Patient Temperature HCO3 Base Excess O2 Saturation ABG pH ABG pCO2 ABG pO2 ABG O2 Content ABG Carboxyhemoglobin ABG Methemoglobin Hemoglobin O2 Delivery Device Liter Flow Vent Setting Inspired O2 POC Sodium Sodium POC Potassium Potassium POC Chloride Chloride Carbon Dioxide Anion Gap POC BUN BUN Creatinine POC Creatinine Estimated GFR POC Glucose Random Glucose Hemoglobin A1c Serum Osmolality Lactic Acid Calcium Prot Corrected Calcium Phosphorus Magnesium Total Bilirubin Direct Bilirubin Indirect Bilirubin AST ALT Alkaline Phosphatase Ammonia Total Creatine Kinase CK-MB (CK-2) CK-MB (CK-2) % Troponin I B-Natriuretic Peptide Total Protein Albumin Prealbumin Procalcitonin TSH Free T4 TSH 3rd Generation Urine Color YELLOW Urine Clarity Urine Turbidity CLOUDY H Urine pH 7.0 Ur Specific [place] 1.021 Urine Protein TRACE Urine Glucose (UA) NEG Urine Ketones NEG Urine Occult Blood NEG Urine Nitrate Urine Nitrite NEG Urine Bilirubin NEG Urine Urobilinogen LESS THAN 2.0 Ur Leukocyte Esterase NEG Urine RBC Urine WBC 2 Ur Squamous Epith Cells Ur Transition Epith Cell Amorphous Sediment MOD Urine Bacteria Hyaline Casts Urine Mucus Urine Yeast (Budding) Micro UA Comment CATH-CULT NOT IND Urine Culture Comments Urine Osmolality Ur Random Sodium CSF Volume (1) CSF Supernat Color (1) CSF Gross Blood (1) CSF Volume (2) CSF Supernat Color (2) CSF Gross Blood (2) CSF Volume (3) CSF Supernat Color (3) CSF Volume (4) CSF Supernat Color (4) CSF WBC (4) CSF RBC (4) CSF Neutrophils CSF Lymphocytes CSF Monocytes CSF Glucose CSF Total Protein Nasal Screen MRSA (PCR) Bronchial Other Cells BAL WBC BAL RBC BAL Neutrophils BAL Lymphocytes BAL Eosinophils BAL Plasma Cells BAL Histiocytes BAL Diff Comment Lavage Fld Tot Volume Lavage Tot WBC Count Stl C.difficile Tox PCR NEGATIVE St C. diff Tox Epid 027 PRESUMPTIVE NEGATIVE Vancomycin Trough Valproic Acid Levetiracetam Ethyl Alcohol 05/08/17 05/08/17 05/16/17 14:24 14:24 09:33 WBC 11.6 H RBC 3.71 L Hgb 10.4 L POC Hgb Hct 31.5 L POC Hct MCV 85.0 MCH 28.2 MCHC 33.2 RDW 14.8 Plt Count 318 MPV 9.1 Neut % (Auto) 76.5 H Lymph % (Auto) 15.1 [place] % (Auto) 5.5 Eos % (Auto) 2.5 Baso % (Auto) 0.4 Neut # (Auto) 8.9 H Lymph # (Auto) 1.8 [place] # (Auto) 0.6 Eos # (Auto) 0.3 Baso # (Auto) 0.1 CBC Comment DIFF FINAL WBC Differential Total Counted Neutrophils % (Manual) Band Neutrophils % Lymphocytes % Monocytes % Eosinophils % Basophils % Neutrophils # (Manual) Metamyelocytes Myelocytes Promyelocytes Nucleated RBCs Differential Comment Toxic Granulation Platelet Estimate Plt Morphology Comment RBC Morph Comment PT INR APTT Fibrinogen Puncture Site Patient Temperature HCO3 Base Excess O2 Saturation ABG pH ABG pCO2 ABG pO2 ABG O2 Content ABG Carboxyhemoglobin ABG Methemoglobin Hemoglobin O2 Delivery Device Liter Flow Vent Setting Inspired O2 POC Sodium Sodium 142 141 POC Potassium Potassium 3.7 4.0 POC Chloride Chloride 107 106 Carbon Dioxide 30.3 27.4 Anion Gap 5 8 POC BUN BUN 18 18 Creatinine 0.32 L 0.38 L POC Creatinine Estimated GFR 331 272 POC Glucose Random Glucose 104 125 H Hemoglobin A1c 5.1 Serum Osmolality Lactic Acid Calcium 8.6 9.3 Prot Corrected Calcium Phosphorus 3.6 Magnesium 2.0 Total Bilirubin 0.2 0.3 Direct Bilirubin Indirect Bilirubin AST 42 H 25 ALT 106 H 36 Alkaline Phosphatase 96 114 Ammonia Total Creatine Kinase CK-MB (CK-2) CK-MB (CK-2) % Troponin I B-Natriuretic Peptide Total Protein 6.8 D 7.8 Albumin 2.3 L 2.9 L Prealbumin Procalcitonin TSH Free T4 1.16 TSH 3rd Generation 1.550 Urine Color Urine Clarity Urine Turbidity Urine pH Ur Specific [place] Urine Protein Urine Glucose (UA) Urine Ketones Urine Occult Blood Urine Nitrate Urine Nitrite Urine Bilirubin Urine Urobilinogen Ur Leukocyte Esterase Urine RBC Urine WBC Ur Squamous Epith Cells Ur Transition Epith Cell Amorphous Sediment Urine Bacteria Hyaline Casts Urine Mucus Urine Yeast (Budding) Micro UA Comment Urine Culture Comments Urine Osmolality Ur Random Sodium CSF Volume (1) CSF Supernat Color (1) CSF Gross Blood (1) CSF Volume (2) CSF Supernat Color (2) CSF Gross Blood (2) CSF Volume (3) CSF Supernat Color (3) CSF Volume (4) CSF Supernat Color (4) CSF WBC (4) CSF RBC (4) CSF Neutrophils CSF Lymphocytes CSF Monocytes CSF Glucose CSF Total Protein Nasal Screen MRSA (PCR) Bronchial Other Cells BAL WBC BAL RBC BAL Neutrophils BAL Lymphocytes BAL Eosinophils BAL Plasma Cells BAL Histiocytes BAL Diff Comment Lavage Fld Tot Volume Lavage Tot WBC Count Stl C.difficile Tox PCR St C. diff Tox Epid 027 Vancomycin Trough Valproic Acid Levetiracetam Ethyl Alcohol 05/16/17 05/19/17 05/24/17 15:48 14:50 09:03 WBC 12.1 H RBC 4.05 L Hgb 11.6 L POC Hgb Hct 34.7 L POC Hct MCV 85.7 MCH 28.6 MCHC 33.3 RDW 15.3 Plt Count 386 MPV 9.2 Neut % (Auto) 76.2 H Lymph % (Auto) 13.8 [place] % (Auto) 6.9 Eos % (Auto) 2.6 Baso % (Auto) 0.5 Neut # (Auto) 9.2 H Lymph # (Auto) 1.7 [place] # (Auto) 0.8 Eos # (Auto) 0.3 Baso # (Auto) 0.1 CBC Comment DIFF FINAL WBC Differential Total Counted Neutrophils % (Manual) Band Neutrophils % Lymphocytes % Monocytes % Eosinophils % Basophils % Neutrophils # (Manual) Metamyelocytes Myelocytes Promyelocytes Nucleated RBCs Differential Comment Toxic Granulation Platelet Estimate Plt Morphology Comment RBC Morph Comment PT INR APTT Fibrinogen Puncture Site Patient Temperature HCO3 Base Excess O2 Saturation ABG pH ABG pCO2 ABG pO2 ABG O2 Content ABG Carboxyhemoglobin ABG Methemoglobin Hemoglobin O2 Delivery Device Liter Flow Vent Setting Inspired O2 POC Sodium Sodium 136 POC Potassium Potassium 4.2 POC Chloride Chloride 103 Carbon Dioxide 26.6 Anion Gap 6 POC BUN BUN 16 Creatinine 0.43 L POC Creatinine Estimated GFR 236 POC Glucose Random Glucose 115 H Hemoglobin A1c Serum Osmolality Lactic Acid Calcium 9.7 Prot Corrected Calcium Phosphorus 3.8 Magnesium 1.9 Total Bilirubin 0.2 Direct Bilirubin Indirect Bilirubin AST 20 ALT 26 Alkaline Phosphatase 114 Ammonia Total Creatine Kinase CK-MB (CK-2) CK-MB (CK-2) % Troponin I B-Natriuretic Peptide Total Protein 7.8 Albumin 2.9 L Prealbumin Procalcitonin TSH Free T4 TSH 3rd Generation Urine Color YELLOW Urine Clarity Urine Turbidity CLOUDY H Urine pH 7.5 Ur Specific [place] 1.018 Urine Protein NEG Urine Glucose (UA) NEG Urine Ketones NEG Urine Occult Blood NEG Urine Nitrate Urine Nitrite NEG Urine Bilirubin NEG Urine Urobilinogen LESS THAN 2.0 Ur Leukocyte Esterase NEG Urine RBC 3 Urine WBC Ur Squamous Epith Cells Ur Transition Epith Cell Amorphous Sediment MOD Urine Bacteria Hyaline Casts Urine Mucus Urine Yeast (Budding) Micro UA Comment CATH-CULT NOT IND Urine Culture Comments Urine Osmolality Ur Random Sodium CSF Volume (1) CSF Supernat Color (1) CSF Gross Blood (1) CSF Volume (2) CSF Supernat Color (2) CSF Gross Blood (2) CSF Volume (3) CSF Supernat Color (3) CSF Volume (4) CSF Supernat Color (4) CSF WBC (4) CSF RBC (4) CSF Neutrophils CSF Lymphocytes CSF Monocytes CSF Glucose CSF Total Protein Nasal Screen MRSA (PCR) Bronchial Other Cells BAL WBC BAL RBC BAL Neutrophils BAL Lymphocytes BAL Eosinophils BAL Plasma Cells BAL Histiocytes BAL Diff Comment Lavage Fld Tot Volume Lavage Tot WBC Count Stl C.difficile Tox PCR St C. diff Tox Epid 027 Vancomycin Trough Valproic Acid Levetiracetam Ethyl Alcohol 05/24/17 05/24/17 05/28/17 09:03 21:00 10:09 WBC 12.1 H 10.1 RBC 4.36 L 4.33 L Hgb 12.2 L 12.2 L POC Hgb Hct 37.1 L 36.3 L POC Hct MCV 85.1 83.9 MCH 28.1 28.1 MCHC 33.0 33.5 RDW 15.5 15.7 Plt Count 272 318 MPV 9.5 9.2 Neut % (Auto) 81.3 H 68.9 Lymph % (Auto) 10.4 19.0 [place] % (Auto) 5.9 8.4 H Eos % (Auto) 2.0 3.2 Baso % (Auto) 0.4 0.5 Neut # (Auto) 9.9 H 7.0 Lymph # (Auto) 1.3 1.9 [place] # (Auto) 0.7 0.8 Eos # (Auto) 0.2 0.3 Baso # (Auto) 0.0 0.0 CBC Comment DIFF FINAL DIFF FINAL WBC Differential Total Counted Neutrophils % (Manual) Band Neutrophils % Lymphocytes % Monocytes % Eosinophils % Basophils % Neutrophils # (Manual) Metamyelocytes Myelocytes Promyelocytes Nucleated RBCs Differential Comment Toxic Granulation Platelet Estimate Plt Morphology Comment RBC Morph Comment PT INR APTT Fibrinogen Puncture Site Patient Temperature HCO3 Base Excess O2 Saturation ABG pH ABG pCO2 ABG pO2 ABG O2 Content ABG Carboxyhemoglobin ABG Methemoglobin Hemoglobin O2 Delivery Device Liter Flow Vent Setting Inspired O2 POC Sodium Sodium POC Potassium Potassium POC Chloride Chloride Carbon Dioxide Anion Gap POC BUN BUN Creatinine POC Creatinine Estimated GFR POC Glucose Random Glucose Hemoglobin A1c Serum Osmolality Lactic Acid Calcium Prot Corrected Calcium Phosphorus Magnesium Total Bilirubin Direct Bilirubin Indirect Bilirubin AST ALT Alkaline Phosphatase Ammonia Total Creatine Kinase CK-MB (CK-2) CK-MB (CK-2) % Troponin I B-Natriuretic Peptide Total Protein Albumin Prealbumin Procalcitonin TSH Free T4 TSH 3rd Generation Urine Color YELLOW Urine Clarity Urine Turbidity HAZY H Urine pH 6.5 Ur Specific [place] 1.017 Urine Protein NEG Urine Glucose (UA) NEG Urine Ketones NEG Urine Occult Blood MOD H Urine Nitrate Urine Nitrite NEG Urine Bilirubin NEG Urine Urobilinogen LESS THAN 2.0 Ur Leukocyte Esterase NEG Urine RBC 119 H Urine WBC 4 Ur Squamous Epith Cells 2 Ur Transition Epith Cell Amorphous Sediment Urine Bacteria Hyaline Casts Urine Mucus FEW H Urine Yeast (Budding) RARE H Micro UA Comment CATH-CULTURE IND Urine Culture Comments Urine Osmolality Ur Random Sodium CSF Volume (1) CSF Supernat Color (1) CSF Gross Blood (1) CSF Volume (2) CSF Supernat Color (2) CSF Gross Blood (2) CSF Volume (3) CSF Supernat Color (3) CSF Volume (4) CSF Supernat Color (4) CSF WBC (4) CSF RBC (4) CSF Neutrophils CSF Lymphocytes CSF Monocytes CSF Glucose CSF Total Protein Nasal Screen MRSA (PCR) Bronchial Other Cells BAL WBC BAL RBC BAL Neutrophils BAL Lymphocytes BAL Eosinophils BAL Plasma Cells BAL Histiocytes BAL Diff Comment Lavage Fld Tot Volume Lavage Tot WBC Count Stl C.difficile Tox PCR St C. diff Tox Epid 027 Vancomycin Trough Valproic Acid Levetiracetam Ethyl Alcohol 05/28/17 05/31/17 05/31/17 17:30 07:05 07:05 WBC 8.0 RBC 4.33 L Hgb 12.2 L POC Hgb Hct 35.9 L POC Hct MCV 82.9 MCH 28.2 MCHC 34.0 RDW 15.8 Plt Count 318 MPV 9.0 Neut % (Auto) 66.7 Lymph % (Auto) 20.2 [place] % (Auto) 8.5 H Eos % (Auto) 3.6 Baso % (Auto) 1.0 Neut # (Auto) 5.3 Lymph # (Auto) 1.6 [place] # (Auto) 0.7 Eos # (Auto) 0.3 Baso # (Auto) 0.1 CBC Comment DIFF FINAL WBC Differential Total Counted Neutrophils % (Manual) Band Neutrophils % Lymphocytes % Monocytes % Eosinophils % Basophils % Neutrophils # (Manual) Metamyelocytes Myelocytes Promyelocytes Nucleated RBCs Differential Comment Toxic Granulation Platelet Estimate Plt Morphology Comment RBC Morph Comment PT INR APTT Fibrinogen Puncture Site Patient Temperature HCO3 Base Excess O2 Saturation ABG pH ABG pCO2 ABG pO2 ABG O2 Content ABG Carboxyhemoglobin ABG Methemoglobin Hemoglobin O2 Delivery Device Liter Flow Vent Setting Inspired O2 POC Sodium Sodium 135 L POC Potassium Potassium 4.3 POC Chloride Chloride 104 Carbon Dioxide 24.5 Anion Gap 7 POC BUN BUN 18 Creatinine 0.48 L POC Creatinine Estimated GFR 208 POC Glucose Random Glucose 109 H Hemoglobin A1c Serum Osmolality Lactic Acid Calcium 9.1 Prot Corrected Calcium Phosphorus 3.7 Magnesium 2.0 Total Bilirubin Direct Bilirubin Indirect Bilirubin AST ALT Alkaline Phosphatase Ammonia Total Creatine Kinase CK-MB (CK-2) CK-MB (CK-2) % Troponin I B-Natriuretic Peptide Total Protein Albumin 2.9 L Prealbumin Procalcitonin TSH Free T4 TSH 3rd Generation Urine Color Urine Clarity Urine Turbidity Urine pH Ur Specific [place] Urine Protein Urine Glucose (UA) Urine Ketones Urine Occult Blood Urine Nitrate Urine Nitrite Urine Bilirubin Urine Urobilinogen Ur Leukocyte Esterase Urine RBC Urine WBC Ur Squamous Epith Cells Ur Transition Epith Cell Amorphous Sediment Urine Bacteria Hyaline Casts Urine Mucus Urine Yeast (Budding) Micro UA Comment Urine Culture Comments Urine Osmolality Ur Random Sodium CSF Volume (1) CSF Supernat Color (1) CSF Gross Blood (1) CSF Volume (2) CSF Supernat Color (2) CSF Gross Blood (2) CSF Volume (3) CSF Supernat Color (3) CSF Volume (4) CSF Supernat Color (4) CSF WBC (4) CSF RBC (4) CSF Neutrophils CSF Lymphocytes CSF Monocytes CSF Glucose CSF Total Protein Nasal Screen MRSA (PCR) Bronchial Other Cells BAL WBC BAL RBC BAL Neutrophils BAL Lymphocytes BAL Eosinophils BAL Plasma Cells BAL Histiocytes BAL Diff Comment Lavage Fld Tot Volume Lavage Tot WBC Count Stl C.difficile Tox PCR NEGATIVE St C. diff Tox Epid 027 PRESUMPTIVE NEGATIVE Vancomycin Trough Valproic Acid Levetiracetam Ethyl Alcohol 06/05/17 06/05/17 06/17/17 07:15 07:15 10:00 WBC 9.7 RBC 4.23 L Hgb 11.7 L POC Hgb Hct 34.9 L POC Hct MCV 82.4 MCH 27.7 MCHC 33.7 RDW 15.3 Plt Count 320 MPV 8.9 Neut % (Auto) 75.9 H Lymph % (Auto) 14.5 [place] % (Auto) 5.8 Eos % (Auto) 3.0 Baso % (Auto) 0.8 Neut # (Auto) 7.4 Lymph # (Auto) 1.4 [place] # (Auto) 0.6 Eos # (Auto) 0.3 Baso # (Auto) 0.1 CBC Comment DIFF FINAL WBC Differential Total Counted Neutrophils % (Manual) Band Neutrophils % Lymphocytes % Monocytes % Eosinophils % Basophils % Neutrophils # (Manual) Metamyelocytes Myelocytes Promyelocytes Nucleated RBCs Differential Comment Toxic Granulation Platelet Estimate Plt Morphology Comment RBC Morph Comment PT INR APTT Fibrinogen Puncture Site Patient Temperature HCO3 Base Excess O2 Saturation ABG pH ABG pCO2 ABG pO2 ABG O2 Content ABG Carboxyhemoglobin ABG Methemoglobin Hemoglobin O2 Delivery Device Liter Flow Vent Setting Inspired O2 POC Sodium Sodium 137 POC Potassium Potassium 4.1 POC Chloride Chloride 102 Carbon Dioxide 25.7 Anion Gap 9 POC BUN BUN 24 H Creatinine 0.39 L POC Creatinine Estimated GFR 264 POC Glucose Random Glucose 107 H Hemoglobin A1c Serum Osmolality Lactic Acid Calcium 9.5 Prot Corrected Calcium Phosphorus Magnesium Total Bilirubin Direct Bilirubin Indirect Bilirubin AST ALT Alkaline Phosphatase Ammonia Total Creatine Kinase CK-MB (CK-2) CK-MB (CK-2) % Troponin I B-Natriuretic Peptide Total Protein Albumin Prealbumin Procalcitonin TSH Free T4 TSH 3rd Generation Urine Color YELLOW Urine Clarity Urine Turbidity CLEAR Urine pH 6.0 Ur Specific [place] 1.020 Urine Protein NEG Urine Glucose (UA) NEG Urine Ketones NEG Urine Occult Blood NEG Urine Nitrate Urine Nitrite NEG Urine Bilirubin NEG Urine Urobilinogen LESS THAN 2.0 Ur Leukocyte Esterase NEG Urine RBC 6 H Urine WBC 2 Ur Squamous Epith Cells Ur Transition Epith Cell Amorphous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
[2018-01-23] MEDS: Enoxaparin Inj 40 MG/0.4 ML Syringe SQ SCH (09:15)
[2018-01-23] MEDS: Ascorbic Acid 500 MG Tablet G-TUBE SCH (09:15)
[2018-01-23] MEDS: Multivitamin/Minerals Therapeutic Tablet G-TUBE SCH ×2 (09:16→20:17)
[2018-01-23] MEDS: Beneprotein Powder Packet G-TUBE SCH ×3 (09:16→18:00)
[2018-01-23] MEDS: Metoprolol Tartrate 25 MG Tablet G-TUBE SCH ×2 (09:16→20:17)
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
[2018-01-23] MEDS: [UNRECOGNIZED DRUG - OTHER] G-TUBE PRN (20:17)
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
[2018-01-24] MEDS: Multivitamin/Minerals Therapeutic Tablet G-TUBE SCH ×2 (10:54→21:12)
[2018-01-24] MEDS: Enoxaparin Inj 40 MG/0.4 ML Syringe SQ SCH (10:54)
[2018-01-24] MEDS: [UNRECOGNIZED DRUG - OTHER] G-TUBE PRN (10:54)
[2018-01-24] MEDS: Ascorbic Acid 500 MG Tablet G-TUBE SCH (10:54)
[2018-01-24] MEDS: Metoprolol Tartrate 25 MG Tablet G-TUBE SCH ×2 (10:54→21:12)
[2018-01-24] MEDS: Beneprotein Powder Packet G-TUBE SCH ×3 (10:54→17:57)
[2018-01-25] MEDS: Metoprolol Tartrate 25 MG Tablet G-TUBE SCH ×2 (08:50→21:13)
[2018-01-25] MEDS: Multivitamin/Minerals Therapeutic Tablet G-TUBE SCH ×2 (08:50→21:13)
[2018-01-25] MEDS: Enoxaparin Inj 40 MG/0.4 ML Syringe SQ SCH (08:50)
[2018-01-25] MEDS: Beneprotein Powder Packet G-TUBE SCH ×3 (08:50→17:24)
[2018-01-25] MEDS: Ascorbic Acid 500 MG Tablet G-TUBE SCH (08:50)
[2018-01-26] MEDS: Enoxaparin Inj 40 MG/0.4 ML Syringe SQ SCH (08:38)
[2018-01-26] MEDS: Ascorbic Acid 500 MG Tablet G-TUBE SCH (08:38)
[2018-01-26] MEDS: Beneprotein Powder Packet G-TUBE SCH ×3 (08:39→18:07)
[2018-01-26] MEDS: Multivitamin/Minerals Therapeutic Tablet G-TUBE SCH ×2 (08:39→20:44)
[2018-01-26] MEDS: Metoprolol Tartrate 25 MG Tablet G-TUBE SCH ×2 (08:39→20:44)
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
[2018-01-27] MEDS: Enoxaparin Inj 40 MG/0.4 ML Syringe SQ SCH (10:05)
[2018-01-27] MEDS: Ascorbic Acid 500 MG Tablet G-TUBE SCH (10:05)
[2018-01-27] MEDS: Multivitamin/Minerals Therapeutic Tablet G-TUBE SCH ×2 (10:06→23:10)
[2018-01-27] MEDS: Metoprolol Tartrate 25 MG Tablet G-TUBE SCH ×2 (10:06→23:08)
[2018-01-27] MEDS: Beneprotein Powder Packet G-TUBE SCH ×3 (10:06→17:40)
[2018-01-28] MEDS: Enoxaparin Inj 40 MG/0.4 ML Syringe SQ SCH (09:50)
[2018-01-28] MEDS: Beneprotein Powder Packet G-TUBE SCH ×3 (10:12→19:24)
[2018-01-28] MEDS: Multivitamin/Minerals Therapeutic Tablet G-TUBE SCH ×2 (10:12→20:23)
[2018-01-28] MEDS: Ascorbic Acid 500 MG Tablet G-TUBE SCH (10:12)
[2018-01-28] MEDS: Metoprolol Tartrate 25 MG Tablet G-TUBE SCH ×2 (10:12→20:23)
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
[2018-01-29] MEDS: Beneprotein Powder Packet G-TUBE SCH ×3 (08:39→19:03)
[2018-01-29] MEDS: Metoprolol Tartrate 25 MG Tablet G-TUBE SCH ×2 (08:39→20:36)
[2018-01-29] MEDS: Ascorbic Acid 500 MG Tablet G-TUBE SCH (08:39)
[2018-01-29] MEDS: Enoxaparin Inj 40 MG/0.4 ML Syringe SQ SCH (08:39)
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
[2018-01-29] MEDS: Multivitamin/Minerals Therapeutic Tablet G-TUBE SCH ×2 (10:26→20:37)
[2018-01-30] MEDS: Ascorbic Acid 500 MG Tablet G-TUBE SCH (09:02)
[2018-01-30] MEDS: Multivitamin/Minerals Therapeutic Tablet G-TUBE SCH ×2 (09:02→22:21)
[2018-01-30] MEDS: Enoxaparin Inj 40 MG/0.4 ML Syringe SQ SCH (09:02)
[2018-01-30] MEDS: Beneprotein Powder Packet G-TUBE SCH ×2 (09:03→18:24)
[2018-01-30] MEDS: Metoprolol Tartrate 25 MG Tablet G-TUBE SCH ×2 (09:03→22:22)
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
[2018-01-30] MEDS: Erythromycin 0.5% Opth Oint 3.5 GM Tube EACH EYE SCH ×2 (18:25→22:22)
[2018-01-31] MEDS: Beneprotein Powder Packet G-TUBE SCH ×3 (09:16→17:35)
[2018-01-31] MEDS: Metoprolol Tartrate 25 MG Tablet G-TUBE SCH ×2 (09:17→20:14)
[2018-01-31] MEDS: Erythromycin 0.5% Opth Oint 3.5 GM Tube EACH EYE SCH ×4 (09:18→20:19)
[2018-01-31] MEDS: Ascorbic Acid 500 MG Tablet G-TUBE SCH (09:18)
[2018-01-31] MEDS: Multivitamin/Minerals Therapeutic Tablet G-TUBE SCH ×2 (09:18→20:19)
[2018-01-31] MEDS: Enoxaparin Inj 40 MG/0.4 ML Syringe SQ SCH (09:18)
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
[2018-02-01] MEDS: Multivitamin/Minerals Therapeutic Tablet G-TUBE SCH ×2 (09:10→20:38)
[2018-02-01] MEDS: Metoprolol Tartrate 25 MG Tablet G-TUBE SCH ×2 (09:10→20:38)
[2018-02-01] MEDS: Enoxaparin Inj 40 MG/0.4 ML Syringe SQ SCH (09:10)
[2018-02-01] MEDS: Ascorbic Acid 500 MG Tablet G-TUBE SCH (09:10)
[2018-02-01] MEDS: Beneprotein Powder Packet G-TUBE SCH ×3 (09:11→17:20)
[2018-02-01] MEDS: Erythromycin 0.5% Opth Oint 3.5 GM Tube EACH EYE SCH ×4 (09:11→20:37)
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
[2018-02-02] MEDS: Metoprolol Tartrate 25 MG Tablet G-TUBE SCH ×2 (10:21→20:51)
[2018-02-02] MEDS: Multivitamin/Minerals Therapeutic Tablet G-TUBE SCH ×2 (10:21→20:51)
[2018-02-02] MEDS: Ascorbic Acid 500 MG Tablet G-TUBE SCH (10:21)
[2018-02-02] MEDS: Beneprotein Powder Packet G-TUBE SCH ×3 (10:22→18:16)
[2018-02-02] MEDS: Erythromycin 0.5% Opth Oint 3.5 GM Tube EACH EYE SCH ×4 (10:22→20:51)
[2018-02-02] MEDS: Enoxaparin Inj 40 MG/0.4 ML Syringe SQ SCH (10:22)
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
[2018-02-03] MEDS: Metoprolol Tartrate 25 MG Tablet G-TUBE SCH ×2 (08:21→20:43)
[2018-02-03] MEDS: Ascorbic Acid 500 MG Tablet G-TUBE SCH (08:22)
[2018-02-03] MEDS: Enoxaparin Inj 40 MG/0.4 ML Syringe SQ SCH (08:22)
[2018-02-03] MEDS: Erythromycin 0.5% Opth Oint 3.5 GM Tube EACH EYE SCH ×4 (08:28→20:44)
[2018-02-03] MEDS: Beneprotein Powder Packet G-TUBE SCH ×3 (08:28→17:45)
[2018-02-03] MEDS: Multivitamin/Minerals Therapeutic Tablet G-TUBE SCH ×2 (09:09→20:44)
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
[2018-02-04] MEDS: Beneprotein Powder Packet G-TUBE SCH ×2 (08:58→12:36)
[2018-02-04] MEDS: Metoprolol Tartrate 25 MG Tablet G-TUBE SCH ×2 (08:58→20:29)
[2018-02-04] MEDS: Ascorbic Acid 500 MG Tablet G-TUBE SCH (08:58)
[2018-02-04] MEDS: Multivitamin/Minerals Therapeutic Tablet G-TUBE SCH ×2 (08:58→20:29)
[2018-02-04] MEDS: Enoxaparin Inj 40 MG/0.4 ML Syringe SQ SCH (08:58)
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
[2018-02-05] MEDS: Multivitamin/Minerals Therapeutic Tablet G-TUBE SCH ×2 (10:23→20:42)
[2018-02-05] MEDS: Ascorbic Acid 500 MG Tablet G-TUBE SCH (10:23)
[2018-02-05] MEDS: Metoprolol Tartrate 25 MG Tablet G-TUBE SCH ×2 (10:23→20:33)
[2018-02-05] MEDS: Enoxaparin Inj 40 MG/0.4 ML Syringe SQ SCH (10:24)
[2018-02-05] MEDS: Beneprotein Powder Packet G-TUBE SCH ×3 (10:24→17:44)
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
--- NOTE | 2018-02-05 14:38 | P.PNPAL ---
Palliative care continues to follow along with Mr. Sanderson. Mr. Sanderson seen in room , lying in bed, eyes closed, resting comfortable. Does not wake to verbal stimuli. Nurse reports labs to be ordered due to fowl smelling urine. Follow-up telephone call to step-mother, Ruth. Updated on above. Ruth requests to be updated on lab results. Tells me family just left visiting with [facility] and met with bilingual patient support caseworker Justice. Ruth states family has declined [facility] going to [facility] after visiting as "it was not a place for my son". Per Ruth's understanding case management looking into another facility. No other questions or concerns. Palliative care will continue to follow throughout hospitalization.
[2018-02-06] MEDS: Metoprolol Tartrate 25 MG Tablet G-TUBE SCH ×2 (08:19→20:30)
[2018-02-06] MEDS: Ascorbic Acid 500 MG Tablet G-TUBE SCH (08:20)
[2018-02-06] MEDS: Enoxaparin Inj 40 MG/0.4 ML Syringe SQ SCH (08:20)
[2018-02-06] MEDS: Beneprotein Powder Packet G-TUBE SCH ×3 (08:21→17:24)
[2018-02-06] MEDS: Multivitamin/Minerals Therapeutic Tablet G-TUBE SCH ×2 (08:21→20:30)
[2018-02-06 08:25] LABS: Bacteria,Urine Moderate /hpf; Bilirubin,Urine Negative (Negative); Clarity,Urine Cloudy (Clear); Color,Urine Yellow (Yellw/Straw); Glucose,Urine (UA) Negative (Negative); Leukocyte Esterase,Urine Trace (Negative); Nitrite,Urine Negative (Negative); Specific Gravity,Urine 1.017 (1.002-1.035)
[2018-02-06 09:43] LABS: Hematocrit 42.8 % (39.0-51.0); Hemoglobin 15.2 gm/dL (13.0-17.0); Mean Corpuscular HGB Conc 35.5 % (32.0-36.0); Mean Corpuscular Hemoglobin 30.6 pg (27.0-34.0); Mean Corpuscular Volume 86.1 fL (80.0-100.0); Platelet Count 210 th/mm3 (150-450); Red Blood Count 4.97 mil/mm3 (4.50-5.90); Red Cell Distribution Width 13.8 % (11.6-17.2); White Blood Count 7.6 th/mm3 (4.0-11.0)
[2018-02-06 09:57] LABS: Anion Gap 8 meq/L (5-15); Blood Urea Nitrogen 21 mg/dL (7-18); Calcium 8.6 mg/dL (8.5-10.1); Carbon Dioxide 26.4 meq/L (21.0-32.0); Chloride 107 meq/L (98-107); Glomerular Filtration Rate Greater Than 89 mL/min (>89); Glucose,Random 120 mg/dL (74-106); Potassium 4.4 meq/L (3.5-5.1); Sodium 141 meq/L (136-145)
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
[2018-02-07] MEDS: Metoprolol Tartrate 25 MG Tablet G-TUBE SCH ×2 (08:01→21:40)
[2018-02-07] MEDS: Enoxaparin Inj 40 MG/0.4 ML Syringe SQ SCH (08:01)
[2018-02-07] MEDS: Ascorbic Acid 500 MG Tablet G-TUBE SCH (08:01)
[2018-02-07] MEDS: Beneprotein Powder Packet G-TUBE SCH ×3 (08:01→17:27)
[2018-02-07] MEDS: Multivitamin/Minerals Therapeutic Tablet G-TUBE SCH ×2 (08:01→21:40)
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
[2018-02-08] MEDS: Multivitamin/Minerals Therapeutic Tablet G-TUBE SCH ×2 (10:30→20:36)
[2018-02-08] MEDS: Metoprolol Tartrate 25 MG Tablet G-TUBE SCH ×2 (11:07→20:35)
[2018-02-08] MEDS: Ascorbic Acid 500 MG Tablet G-TUBE SCH (11:10)
[2018-02-08] MEDS: Enoxaparin Inj 40 MG/0.4 ML Syringe SQ SCH (11:13)
[2018-02-08] MEDS: Beneprotein Powder Packet G-TUBE SCH ×3 (11:15→18:13)
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
[2018-02-09] MEDS: Metoprolol Tartrate 25 MG Tablet G-TUBE SCH ×2 (08:58→21:01)
[2018-02-09] MEDS: Enoxaparin Inj 40 MG/0.4 ML Syringe SQ SCH (08:58)
[2018-02-09] MEDS: Beneprotein Powder Packet G-TUBE SCH ×3 (08:58→18:00)
[2018-02-09] MEDS: Multivitamin/Minerals Therapeutic Tablet G-TUBE SCH ×2 (08:58→21:01)
[2018-02-09] MEDS: Ascorbic Acid 500 MG Tablet G-TUBE SCH (08:58)
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
[2018-02-10] MEDS: Multivitamin/Minerals Therapeutic Tablet G-TUBE SCH ×2 (08:30→20:28)
[2018-02-10] MEDS: Metoprolol Tartrate 25 MG Tablet G-TUBE SCH ×2 (08:31→20:28)
[2018-02-10] MEDS: Ascorbic Acid 500 MG Tablet G-TUBE SCH (08:32)
[2018-02-10] MEDS: Enoxaparin Inj 40 MG/0.4 ML Syringe SQ SCH (08:32)
[2018-02-10] MEDS: Beneprotein Powder Packet G-TUBE SCH ×3 (08:33→17:43)
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
[2018-02-11] MEDS: Metoprolol Tartrate 25 MG Tablet G-TUBE SCH ×2 (09:30→20:49)
[2018-02-11] MEDS: Beneprotein Powder Packet G-TUBE SCH ×3 (09:30→17:46)
[2018-02-11] MEDS: Multivitamin/Minerals Therapeutic Tablet G-TUBE SCH ×2 (09:31→20:49)
[2018-02-11] MEDS: Ascorbic Acid 500 MG Tablet G-TUBE SCH (09:31)
[2018-02-11] MEDS: Enoxaparin Inj 40 MG/0.4 ML Syringe SQ SCH (09:32)
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
[2018-02-12] MEDS: Multivitamin/Minerals Therapeutic Tablet G-TUBE SCH ×2 (09:10→20:29)
[2018-02-12] MEDS: Ascorbic Acid 500 MG Tablet G-TUBE SCH (09:10)
[2018-02-12] MEDS: Metoprolol Tartrate 25 MG Tablet G-TUBE SCH ×2 (09:11→20:26)
[2018-02-12] MEDS: Enoxaparin Inj 40 MG/0.4 ML Syringe SQ SCH (09:11)
[2018-02-12] MEDS: [UNRECOGNIZED DRUG - OTHER] G-TUBE PRN (09:11)
[2018-02-12] MEDS: Beneprotein Powder Packet G-TUBE SCH ×3 (09:12→17:19)
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
[2018-02-13] MEDS: Metoprolol Tartrate 25 MG Tablet G-TUBE SCH ×2 (09:17→21:16)
[2018-02-13] MEDS: Enoxaparin Inj 40 MG/0.4 ML Syringe SQ SCH (09:17)
[2018-02-13] MEDS: Multivitamin/Minerals Therapeutic Tablet G-TUBE SCH ×2 (09:17→21:19)
[2018-02-13] MEDS: Ascorbic Acid 500 MG Tablet G-TUBE SCH (09:17)
[2018-02-13] MEDS: Beneprotein Powder Packet G-TUBE SCH ×3 (09:17→18:00)
--- NOTE | 2018-02-13 18:40 | P.PNADD ---
Addendum to Inpatient Note Additional information: seen kaylie maria full note to follow
--- NOTE | 2018-02-13 18:40 | P.CONID ---
History of Present Illness Primary Care Provider: UNKNOWN Medications and Allergies Active Medications: Active Medications Acetaminophen (Tylenol Liq) 650 mg G-TUBE Q4H PRN PRN Reason: Pain 1-2 or Fever> 101 Last Admin: 01/16/18 21:42 Dose: 650 mg Hydrocodone Bitart/Acetaminophen ([place] 5/325) 1 tab G-TUBE Q4H PRN PRN Reason: BREAKTHROUGH PAIN Last Admin: 02/11/18 20:50 Dose: 1 tab Al Hydroxide/Mg Hydroxide (Milk Of Magnesia Liq) 30 ml G-TUBE Q12H PRN PRN Reason: Mild constipation Albuterol (Albuterol Neb (Prn)) 2.5 mg INH Q2HR NEB PRN PRN Reason: SOB/WHEEZING Last Admin: 12/15/17 11:23 Dose: 2.5 mg Ascorbic Acid (Vitamin C) 1,000 mg G-TUBE DAILY [facility] Last Admin: 02/13/18 09:17 Dose: 1,000 mg Baclofen (Lioresal) 20 mg G-TUBE Q8H [facility] Last Admin: 02/13/18 09:17 Dose: 20 mg Bisacodyl (Dulcolax Supp) 10 mg RECTAL DAILY PRN PRN Reason: SEVERE CONSITIPATION Last Admin: 09/26/17 20:00 Dose: 10 mg Diphenoxylate HCl/Atropine (Lomotil 2.5/0.025 Mg Liq) 5 ml G-TUBE Q6H PRN PRN Reason: DIARRHEA Last Admin: 02/12/18 09:11 Dose: 5 ml Enoxaparin Sodium (Lovenox Inj) 40 mg SQ DAILY [facility] Last Admin: 02/13/18 09:17 Dose: 40 mg Levetiracetam (Keppra Liq) 750 mg G-TUBE Q12H [facility] Last Admin: 02/13/18 09:16 Dose: 750 mg Metoprolol Tartrate (Lopressor) 6.25 mg G-TUBE BID [facility] Last Admin: 02/13/18 09:17 Dose: 6.25 mg Miscellaneous (Pill Splitter) 1 each OTHER UNSCH PRN PRN Reason: SEE LABEL COMMENTS Multivitamins/Minerals (Theragran-M) 1 tab G-TUBE Q12HR [facility] Last Admin: 02/13/18 09:17 Dose: 1 tab Sterile Water (Free Water) 0 ml G-TUBE Q6H [facility] Last Admin: 02/13/18 13:03 Dose: 300 ml Tizanidine HCl (Zanaflex) 4 mg G-TUBE Q12HR [facility] Last Admin: 02/13/18 09:17 Dose: 4 mg Whey (Beneprotein Powder) 1 packet G-TUBE TID [facility] Last Admin: 02/13/18 13:03 Dose: 1 packet Allergies Allergy/AdvReac Type Severity Reaction Status Date / Time coconut Allergy Unknown Verified 01/13/17 07:11 Home Medications Medication Instructions Recorded Confirmed Type No Known Home Medications 09/23/17 09/23/17 History Exam Vital signs: Vital Signs 02/12/18 19:53 02/12/18 20:00 02/13/18 04:41 Temperature 97.9 F Pulse Rate 95 H Respiratory Rate 16 Blood Pressure 122/70 Pulse Oximetry 99 99 97 02/13/18 08:00 02/13/18 14:35 Temperature 97.7 F Pulse Rate 82 Respiratory Rate 16 Blood Pressure 120/67 Pulse Oximetry 99 100 Intake & Output 02/12/18 02/13/18 02/13/18 18:59 06:59 18:59 Intake Total 1680 / 1680 1620 / 1620 1450 / 1450 Output Total 1500 / 1500 450 / 450 850 / 850 Balance 180 / 180 1170 / 1170 600 / 600 Weight 78.6 kg Intake: Oral 0 / 0 Tube Feeding 1080 / 1080 900 / 900 850 / 850 Tube Irrigant 120 / 120 0 / 0 Water Bolus Amount 600 / 600 600 / 600 600 / 600 Output: Urine 0 / 0 Stool 0 / 0 Urine/Stool Mix 0 / 0 Emesis 0 / 0 Urine Amount (Catheter) 1500 / 1500 450 / 450 850 / 850 Condom 1500 / 1500 450 / 450 850 / 850 Other: Other Intake Source Saline Solution # Voids 2 # Incontinent Voids 1 Date of Last Bowel Movement 02/12/18 02/12/18 # Bowel Movements 3 3 # Incontinent Bowel Movements 1 # Emeses 0 Results - Labs CBC & Chem 7: 02/06/18 09:17 02/06/18 09:17
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
[2018-02-14] MEDS: Ascorbic Acid 500 MG Tablet G-TUBE SCH (08:51)
[2018-02-14] MEDS: Enoxaparin Inj 40 MG/0.4 ML Syringe SQ SCH (08:51)
[2018-02-14] MEDS: Multivitamin/Minerals Therapeutic Tablet G-TUBE SCH ×2 (08:51→21:39)
[2018-02-14] MEDS: Metoprolol Tartrate 25 MG Tablet G-TUBE SCH ×2 (08:51→21:38)
[2018-02-14] MEDS: [UNRECOGNIZED DRUG - OTHER] G-TUBE PRN (08:51)
[2018-02-14] MEDS: Beneprotein Powder Packet G-TUBE SCH ×3 (08:53→17:25)
[2018-02-15] MEDS: Beneprotein Powder Packet G-TUBE SCH ×2 (09:00→16:59)
[2018-02-15] MEDS: Enoxaparin Inj 40 MG/0.4 ML Syringe SQ SCH (09:43)
[2018-02-15] MEDS: Metoprolol Tartrate 25 MG Tablet G-TUBE SCH ×2 (09:43→20:44)
[2018-02-15] MEDS: Ascorbic Acid 500 MG Tablet G-TUBE SCH (09:43)
[2018-02-15] MEDS: Multivitamin/Minerals Therapeutic Tablet G-TUBE SCH ×2 (09:43→20:45)
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
[2018-02-15] MEDS: Erythromycin 0.5% Opth Oint 3.5 GM Tube EACH EYE SCH ×2 (20:40→20:46)
[2018-02-16] MEDS: Metoprolol Tartrate 25 MG Tablet G-TUBE SCH ×2 (08:54→20:29)
[2018-02-16] MEDS: Enoxaparin Inj 40 MG/0.4 ML Syringe SQ SCH (08:54)
[2018-02-16] MEDS: Multivitamin/Minerals Therapeutic Tablet G-TUBE SCH ×2 (08:55→20:29)
[2018-02-16] MEDS: Erythromycin 0.5% Opth Oint 3.5 GM Tube EACH EYE SCH ×4 (08:55→20:29)
[2018-02-16] MEDS: Ascorbic Acid 500 MG Tablet G-TUBE SCH (08:55)
[2018-02-16] MEDS: Beneprotein Powder Packet G-TUBE SCH ×3 (08:55→18:00)
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
[2018-02-17] MEDS: Ascorbic Acid 500 MG Tablet G-TUBE SCH (08:41)
[2018-02-17] MEDS: [UNRECOGNIZED DRUG - OTHER] G-TUBE PRN (08:42)
[2018-02-17] MEDS: Metoprolol Tartrate 25 MG Tablet G-TUBE SCH ×2 (08:42→20:22)
[2018-02-17] MEDS: Multivitamin/Minerals Therapeutic Tablet G-TUBE SCH ×2 (08:42→20:23)
[2018-02-17] MEDS: Enoxaparin Inj 40 MG/0.4 ML Syringe SQ SCH (08:42)
[2018-02-17] MEDS: Beneprotein Powder Packet G-TUBE SCH ×3 (08:43→17:48)
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
[2018-02-18] MEDS: Multivitamin/Minerals Therapeutic Tablet G-TUBE SCH ×2 (09:32→20:24)
[2018-02-18] MEDS: Ascorbic Acid 500 MG Tablet G-TUBE SCH (09:32)
[2018-02-18] MEDS: Enoxaparin Inj 40 MG/0.4 ML Syringe SQ SCH (09:32)
[2018-02-18] MEDS: Metoprolol Tartrate 25 MG Tablet G-TUBE SCH ×2 (09:33→20:24)
[2018-02-18] MEDS: Beneprotein Powder Packet G-TUBE SCH ×3 (09:33→18:02)
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
[2018-02-19] MEDS: Enoxaparin Inj 40 MG/0.4 ML Syringe SQ SCH (09:30)
[2018-02-19] MEDS: Beneprotein Powder Packet G-TUBE SCH ×3 (09:30→17:06)
[2018-02-19] MEDS: Metoprolol Tartrate 25 MG Tablet G-TUBE SCH ×2 (09:30→22:08)
[2018-02-19] MEDS: Ascorbic Acid 500 MG Tablet G-TUBE SCH (09:30)
[2018-02-19] MEDS: Multivitamin/Minerals Therapeutic Tablet G-TUBE SCH ×2 (09:30→22:08)
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
[2018-02-20] MEDS: Enoxaparin Inj 40 MG/0.4 ML Syringe SQ SCH (08:52)
[2018-02-20] MEDS: Ascorbic Acid 500 MG Tablet G-TUBE SCH (08:52)
[2018-02-20] MEDS: Multivitamin/Minerals Therapeutic Tablet G-TUBE SCH ×2 (08:52→20:55)
[2018-02-20] MEDS: Metoprolol Tartrate 25 MG Tablet G-TUBE SCH ×2 (08:52→20:55)
[2018-02-20] MEDS: Beneprotein Powder Packet G-TUBE SCH ×3 (08:53→17:44)
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
[2018-02-20] MEDS: Baclofen 10 MG Tablet G-TUBE SCH (17:44)
[2018-02-21] MEDS: Baclofen 10 MG Tablet G-TUBE SCH ×4 (00:18→17:43)
[2018-02-21] MEDS: [UNRECOGNIZED DRUG - OTHER] G-TUBE PRN (08:09)
[2018-02-21] MEDS: Enoxaparin Inj 40 MG/0.4 ML Syringe SQ SCH (08:09)
[2018-02-21] MEDS: Metoprolol Tartrate 25 MG Tablet G-TUBE SCH ×2 (08:10→21:36)
[2018-02-21] MEDS: Ascorbic Acid 500 MG Tablet G-TUBE SCH (08:10)
[2018-02-21] MEDS: Beneprotein Powder Packet G-TUBE SCH ×3 (08:10→17:42)
[2018-02-21] MEDS: Multivitamin/Minerals Therapeutic Tablet G-TUBE SCH ×2 (08:10→21:36)
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
[2018-02-22] MEDS: Baclofen 10 MG Tablet G-TUBE SCH ×3 (05:08→13:47)
[2018-02-22] MEDS: Beneprotein Powder Packet G-TUBE SCH ×2 (09:49→13:47)
[2018-02-22] MEDS: Metoprolol Tartrate 25 MG Tablet G-TUBE SCH ×2 (09:49→21:41)
[2018-02-22] MEDS: Enoxaparin Inj 40 MG/0.4 ML Syringe SQ SCH (09:49)
[2018-02-22] MEDS: Multivitamin/Minerals Therapeutic Tablet G-TUBE SCH ×2 (09:50→21:45)
[2018-02-22] MEDS: Ascorbic Acid 500 MG Tablet G-TUBE SCH (09:50)
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
[2018-02-23] MEDS: Baclofen 10 MG Tablet G-TUBE SCH ×4 (08:54→17:24)
[2018-02-23] MEDS: Beneprotein Powder Packet G-TUBE SCH ×3 (08:54→17:24)
[2018-02-23] MEDS: Multivitamin/Minerals Therapeutic Tablet G-TUBE SCH ×2 (09:07→21:19)
[2018-02-23] MEDS: Metoprolol Tartrate 25 MG Tablet G-TUBE SCH ×2 (09:08→21:18)
[2018-02-23] MEDS: Enoxaparin Inj 40 MG/0.4 ML Syringe SQ SCH (09:08)
[2018-02-23] MEDS: Ascorbic Acid 500 MG Tablet G-TUBE SCH (09:08)
[2018-02-23] MEDS: [UNRECOGNIZED DRUG - OTHER] G-TUBE PRN (09:09)
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
[2018-02-24] MEDS: Baclofen 10 MG Tablet G-TUBE SCH ×4 (00:06→17:34)
[2018-02-24] MEDS: Metoprolol Tartrate 25 MG Tablet G-TUBE SCH ×2 (08:53→20:11)
[2018-02-24] MEDS: Multivitamin/Minerals Therapeutic Tablet G-TUBE SCH ×2 (08:53→20:11)
[2018-02-24] MEDS: Ascorbic Acid 500 MG Tablet G-TUBE SCH (08:53)
[2018-02-24] MEDS: Enoxaparin Inj 40 MG/0.4 ML Syringe SQ SCH (08:54)
[2018-02-24] MEDS: Beneprotein Powder Packet G-TUBE SCH ×3 (08:54→17:34)
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
[2018-02-25] MEDS: Baclofen 10 MG Tablet G-TUBE SCH ×4 (00:43→17:08)
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
[2018-02-25] MEDS: Enoxaparin Inj 40 MG/0.4 ML Syringe SQ SCH (08:20)
[2018-02-25] MEDS: Beneprotein Powder Packet G-TUBE SCH ×3 (08:21→17:08)
[2018-02-25] MEDS: Multivitamin/Minerals Therapeutic Tablet G-TUBE SCH ×2 (08:21→20:50)
[2018-02-25] MEDS: Ascorbic Acid 500 MG Tablet G-TUBE SCH (08:21)
[2018-02-25] MEDS: Metoprolol Tartrate 25 MG Tablet G-TUBE SCH ×2 (08:21→20:50)
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
[2018-02-26] MEDS: Baclofen 10 MG Tablet G-TUBE SCH ×4 (05:11→17:14)
[2018-02-26 06:08] LABS: Anion Gap 6 meq/L (5-15); Blood Urea Nitrogen 21 mg/dL (7-18); Calcium 8.4 mg/dL (8.5-10.1); Carbon Dioxide 28.5 meq/L (21.0-32.0); Chloride 106 meq/L (98-107); Glomerular Filtration Rate Greater Than 89 mL/min (>89); Glucose,Random 107 mg/dL (74-106); Potassium 3.8 meq/L (3.5-5.1); Sodium 140 meq/L (136-145)
[2018-02-26] MEDS: Enoxaparin Inj 40 MG/0.4 ML Syringe SQ SCH (10:04)
[2018-02-26] MEDS: Ascorbic Acid 500 MG Tablet G-TUBE SCH (10:04)
[2018-02-26] MEDS: Beneprotein Powder Packet G-TUBE SCH ×3 (10:04→17:14)
[2018-02-26] MEDS: Metoprolol Tartrate 25 MG Tablet G-TUBE SCH ×2 (10:04→20:28)
[2018-02-26] MEDS: Multivitamin/Minerals Therapeutic Tablet G-TUBE SCH ×2 (10:04→20:28)
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
[2018-02-27] MEDS: Baclofen 10 MG Tablet G-TUBE SCH ×5 (00:02→23:15)
[2018-02-27] MEDS: Ascorbic Acid 500 MG Tablet G-TUBE SCH (09:45)
[2018-02-27] MEDS: Enoxaparin Inj 40 MG/0.4 ML Syringe SQ SCH (09:45)
[2018-02-27] MEDS: Multivitamin/Minerals Therapeutic Tablet G-TUBE SCH ×2 (09:46→20:47)
[2018-02-27] MEDS: Beneprotein Powder Packet G-TUBE SCH ×3 (09:47→17:39)
[2018-02-27] MEDS: Metoprolol Tartrate 25 MG Tablet G-TUBE SCH ×2 (09:47→20:48)
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
[2018-02-28] MEDS: Baclofen 10 MG Tablet G-TUBE SCH ×3 (05:05→17:25)
[2018-02-28] MEDS: Metoprolol Tartrate 25 MG Tablet G-TUBE SCH ×2 (09:19→22:29)
[2018-02-28] MEDS: Enoxaparin Inj 40 MG/0.4 ML Syringe SQ SCH (09:19)
[2018-02-28] MEDS: Ascorbic Acid 500 MG Tablet G-TUBE SCH (09:19)
[2018-02-28] MEDS: Multivitamin/Minerals Therapeutic Tablet G-TUBE SCH ×2 (09:19→22:28)
[2018-02-28] MEDS: Beneprotein Powder Packet G-TUBE SCH ×3 (09:20→17:25)
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
[2018-03-01] MEDS: Baclofen 10 MG Tablet G-TUBE SCH ×4 (00:40→18:16)
[2018-03-01] MEDS: Enoxaparin Inj 40 MG/0.4 ML Syringe SQ SCH (08:21)
[2018-03-01] MEDS: Beneprotein Powder Packet G-TUBE SCH ×3 (08:22→18:16)
[2018-03-01] MEDS: Multivitamin/Minerals Therapeutic Tablet G-TUBE SCH ×2 (08:22→21:21)
[2018-03-01] MEDS: Ascorbic Acid 500 MG Tablet G-TUBE SCH (08:22)
[2018-03-01] MEDS: Metoprolol Tartrate 25 MG Tablet G-TUBE SCH ×2 (08:22→21:20)
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
[2018-03-02] MEDS: Baclofen 10 MG Tablet G-TUBE SCH ×4 (00:16→17:15)
[2018-03-02] MEDS: Enoxaparin Inj 40 MG/0.4 ML Syringe SQ SCH (08:18)
[2018-03-02] MEDS: Multivitamin/Minerals Therapeutic Tablet G-TUBE SCH ×2 (08:19→21:08)
[2018-03-02] MEDS: Beneprotein Powder Packet G-TUBE SCH ×3 (08:19→17:16)
[2018-03-02] MEDS: Ascorbic Acid 500 MG Tablet G-TUBE SCH (08:19)
[2018-03-02] MEDS: Metoprolol Tartrate 25 MG Tablet G-TUBE SCH ×2 (08:19→21:08)
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
[2018-03-03] MEDS: Baclofen 10 MG Tablet G-TUBE SCH ×5 (00:31→23:53)
[2018-03-03 06:11] LABS: Baso % (Auto) 0.5 % (0.0-2.0); Eos # (Auto) 0.4 th/mm3 (0.0-0.4); Eos % (Auto) 4.7 % (0.0-4.0); Hematocrit 41.9 % (39.0-51.0); Hemoglobin 14.3 gm/dL (13.0-17.0); Lymph % (Auto) 24.8 % (9.0-44.0); Mean Corpuscular HGB Conc 34.1 % (32.0-36.0); Mean Corpuscular Hemoglobin 30.2 pg (27.0-34.0); Mean Corpuscular Volume 88.5 fL (80.0-100.0); Mean Platelet Volume 9.3 fL (7.0-11.0); Mono # (Auto) 0.6 th/mm3 (0.0-0.9); Mono % (Auto) 7.9 % (0.0-8.0); Neut # (Auto) 4.9 th/mm3 (1.8-7.7); Neut % (Auto) 62.1 % (16.0-70.0); Platelet Count 244 th/mm3 (150-450); Red Blood Count 4.73 mil/mm3 (4.50-5.90); Red Cell Distribution Width 13.6 % (11.6-17.2); White Blood Count 7.9 th/mm3 (4.0-11.0)
[2018-03-03 06:42] LABS: Anion Gap 7 meq/L (5-15); Blood Urea Nitrogen 22 mg/dL (7-18); Calcium 8.3 mg/dL (8.5-10.1); Carbon Dioxide 27.6 meq/L (21.0-32.0); Chloride 106 meq/L (98-107); Glomerular Filtration Rate Greater Than 89 mL/min (>89); Glucose,Random 112 mg/dL (74-106); Potassium 3.8 meq/L (3.5-5.1); Sodium 141 meq/L (136-145)
[2018-03-03] MEDS: Ascorbic Acid 500 MG Tablet G-TUBE SCH (09:07)
[2018-03-03] MEDS: Metoprolol Tartrate 25 MG Tablet G-TUBE SCH ×2 (09:07→21:11)
[2018-03-03] MEDS: Enoxaparin Inj 40 MG/0.4 ML Syringe SQ SCH (09:07)
[2018-03-03] MEDS: Multivitamin/Minerals Therapeutic Tablet G-TUBE SCH ×2 (09:07→21:11)
[2018-03-03] MEDS: [UNRECOGNIZED DRUG - OTHER] G-TUBE PRN (09:07)
[2018-03-03] MEDS: Beneprotein Powder Packet G-TUBE SCH ×3 (09:08→17:32)
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
[2018-03-04] MEDS: Baclofen 10 MG Tablet G-TUBE SCH ×3 (05:43→18:29)
[2018-03-04] MEDS: Ascorbic Acid 500 MG Tablet G-TUBE SCH (10:52)
[2018-03-04] MEDS: Enoxaparin Inj 40 MG/0.4 ML Syringe SQ SCH (10:52)
[2018-03-04] MEDS: Metoprolol Tartrate 25 MG Tablet G-TUBE SCH ×2 (10:55→21:38)
[2018-03-04] MEDS: Multivitamin/Minerals Therapeutic Tablet G-TUBE SCH ×2 (10:56→21:38)
[2018-03-04] MEDS: Beneprotein Powder Packet G-TUBE SCH ×3 (10:56→18:29)
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
[2018-03-05] MEDS: Baclofen 10 MG Tablet G-TUBE SCH ×3 (00:01→11:02)
[2018-03-05] MEDS: Ascorbic Acid 500 MG Tablet G-TUBE SCH (09:56)
[2018-03-05] MEDS: Enoxaparin Inj 40 MG/0.4 ML Syringe SQ SCH (09:56)
[2018-03-05] MEDS: Multivitamin/Minerals Therapeutic Tablet G-TUBE SCH (09:57)
[2018-03-05] MEDS: Metoprolol Tartrate 25 MG Tablet G-TUBE SCH (09:57)
[2018-03-05] MEDS: [UNRECOGNIZED DRUG - OTHER] G-TUBE PRN (09:58)
[2018-03-05] MEDS: Beneprotein Powder Packet G-TUBE SCH (10:00)
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
[~2018-03-05 16:45] MED LIST: Beneprotein Powder Packet G-TUBE SCH; Bisacodyl 10 MG Supp RECTAL PRN; Butalbital/APAP/Caff 50/325/40 MG Tablet PO PRN; Ketorolac Inj 30 MG/ML (IVP) Vial IV.PUSH PRN; Ondansetron Liq 4 MG/5 ML UDC NG/OG PRN; Sod Chloride 0.9% Inj 1,000 ML IV.SIG ONE; diphenhydrAMINE HCl 12.5 MG/5 ML Elixir UDC NG/OG PRN
== END | disposition hospice, inpatient (51) ==
LOC: H4EN 01-12 06:46 → H7ONC 10-19 15:08
PROVIDERS: ADMIT Family Medicine; ATTEND Family Medicine